=== PATIENT | male | born 1945 | race Caucasian/White ===

== ENCOUNTER 2016-09-08 14:38 | Emergency (ER) | payer OTHER ==
[2016-09-08 14:42] VITALS: BP 147/89; BMI 31.4
--- NOTE | 2016-09-08 15:58 | DR.FB ---
HPI - Time Seen Time seen: 15:25 - PCP Primary Care Physician: ADELINE - HPI Comment HPI Comment: FB, Q TIP IN LT NOSTRIL. - Complaint Chief Complaint:: PT. THINKS HE MAY HAVE A Q-TIP STUCK IN HIS LEFT NOSTRIL. Chief Complaint Doctors Comments: 1/2 OF Q TIP COTTON PLUS STICK STUCK IN LT NOSTRIL. - Reviewed Nurses Notes Review: Yes - Source History Provided: Patient - Mode of Arrival Mode of Arrival: Wheelchair - Location Location: Left, Nose - Timing Onset of Chief Complaint: 09/08/16 - Context Context: Accidental Foreign body: Other (Q TIP) Removal: Was attempted, Was Successful Last tetanus: UTD - Severity Pain Severity: Moderate Associated signs and symptoms: Moderate Ability to handle secretions: Normal - Associated signs and symptoms Associated sign and symptoms: Pain, Bleeding PMH - PMH Past Medical History: Yes Past Medical History: Anxiety, COPD, GERD Past Surgical History: Yes Surgical History: Ortho Surgery - Family History History of Family Medical Conditions: No - Social History Does patient currently use any type of tobacco product: No Have you used tobacco products in the last 12 months: No Type of Tobacco Use: None Does any household member use tobacco: No Alcohol Use: None Do you use any recreational Drugs:: No Lives With: Spouse Lives Where: Home - infectious screening In the last 2 months have you had wt loss of >10#?: NO Have you had fever, night sweats or hemotysis?: No Have you traveled outside the country in the last 6 months?: No Isolation: Standard ROS - Review of Systems Constitutional: No Symptoms Reported Eyes: No Symptoms Reported ENTM: Nose Pain (FB LT NOSE.). negative: Throat Pain Respiratoy: No Symptoms Reported Cardiovascular: No Symptoms Reported Gastrointestinal/Abdominal: No Symptoms Reported Genitourinary: No Symptoms Reported Neurological: No Symptoms Reported Musculoskeletal: Foot (POST OP SHOES RIGHT FOOT) Integumentary: No Symptoms Reported Hematologic/Lymphatic: No Symptoms Reported Endocrine: No Symptoms Reported All Other Systems: Reviewed and Negative PE - Vital Signs Vitals: Temperature 97.9 F Pulse Rate 102 Respiratory Rate 18 Blood Pressure [Left Arm] 128/72 Blood Pressure 147/89 O2 Sat by Pulse Oximetry 94 - General Limitations: No Limitations General Appearance: Alert - Eyes Eye exam: Normal Appearance - ENT ENT Exam: Normal External Ear Exam External Ear Exam: Normal External Inspection TM/Canal Exam: Bilateral Normal Nose Exam: Abrasion (LT NOSTRIL.), Other (FB NOTED IN LT NOSTRIL) Mouth Exam: Normal Inspection Throat Exam: Normal Inspection - Neck Neck Exam: Normal Inspection - Chest Chest Inspection: Symmetric Chest Wall Rise - Respiratory Respiratory Exam: Normal Lung Sounds Bilat Respiratory Exam: Bilateral Clear to Auscultation - Cardiovascular Cardiovascular Exam: Regular Rate, Normal Rhythm, Normal Heart Sounds - Abdominal Exam Abdominal Exam: Normal Bowel Sounds, Soft, Hyperactive Bowel Sounds - Rectal Rectal Exam: Deferred - Genitalia Genitalia: Deferred - Neurologic Neurological Exam: Alert, Oriented X3 - Psychiatric Psychiatric Exam: Normal Affect, Normal Mood - Skin Skin Exam: Normal Color MDM - Differential Diagnosis Differential Diagnosis: Abrasion, Foreign body (LT NOSTRIL.) Course - Treatment Treatment: SEE ORDERS. Q TIP REMOVE FROM LEFT NOSTRIL. HALF OF THE Q TIP WAS EMBEDDED IN THE NOSE. NO IMMEDIATE COMPLICATION NOTED. - Education/Counseling Education/Counseling: Patient, Education Educated On: Diagnosis, Needs for Follow Up - Diagnosis Discharge Problem: Nasal foreign body Qualifiers: Encounter type: initial encounter Qualified Code(s): T17.1XXA - Foreign body in nostril, initial encounter - Discharge Plan Condition: Stable - Follow ups/Referrals Follow ups/Referrals: Ra Ramirez [Primary Care Provider] - 3 days - Instructions Instructions: Nasal Foreign Body, [id number] Additional Instructions: RETURN TO ED IF WORSE.
== END 2016-09-08 16:04 | disposition home or self-care (01) ==
LOC: ER 14:47
DX: T17.1XXA Foreign body in nostril, initial encounter (principal)
CPT/HCPCS: 99282

== ENCOUNTER → 2016-10-09 | Emergency (ER) | payer OTHER | LOC: OUTPT REF 17:48 | DX: Z45.2 Encounter for adjustment and management of vascular access device (principal) | CPT/HCPCS: 96374; 99281 ==

== ENCOUNTER 2017-08-02 17:20 | Emergency (ER) | payer OTHER | END 2017-08-02 17:39 | disposition home or self-care (01) | LOC: OUTPT REF 17:20 | DX: Z45.2 Encounter for adjustment and management of vascular access device (principal) | CPT/HCPCS: 99281 ==

== ENCOUNTER 2017-08-24 11:53 | Observation (INO) ==
[2017-08-24] MEDS ORDERED: LEVSIN/MAALOX/LIDOC VISC PO PRN (12:53)
[2017-08-24] MEDS ORDERED: ZOFRAN INJ 4 MG VIAL IVP PRN (12:53)
[2017-08-24] MEDS: NS 1000 ML 1,000 ML IV SCH ×2 (13:15→22:07)
[2017-08-24 13:32] LABS: BASOPHILS % (AUTO) 0.3 % (0.2-1.0); EOSINOPHILS # (AUTO) 0.2 x10^3/uL (0.0-0.2); EOSINOPHILS % (AUTO) 2.1 % (0.9-2.9); HEMATOCRIT 46.4 % (42.0-54.0); HEMOGLOBIN 15.5 g/dL (13.5-18.0); LYMPHOCYTES # (AUTO) 0.9 X10^3/uL (1.3-2.9); LYMPHOCYTES % (AUTO) 9.2 % (21.0-51.0); MEAN CORPUSCULAR HEMOGLOBIN 28.8 pg (27.0-34.0); MEAN CORPUSCULAR HGB CONC 33.4 g/dL (33.0-35.0); MEAN CORPUSCULAR VOLUME 86.1 fL (80.0-100.0); MEAN PLATELET VOLUME 8.6 fL (7.4-11.0); MONOCYTES # (AUTO) 0.9 x10^3/uL (0.3-0.8); MONOCYTES % (AUTO) 9.8 % (0.0-13.0); NEUTROPHILS # (AUTO) 7.5 x10^3/uL (2.2-4.8); NEUTROPHILS % (AUTO) 78.6 % (42.0-75.0); PLATELET COUNT 224 X10^3/uL (150.0-450.0); RED BLOOD COUNT 5.39 X10^6/uL (4.7-6.0); RED CELL DISTRIBUTION WIDTH 15.4 % (11.6-16.5); WHITE BLOOD COUNT 9.6 X10^3/uL (3.6-10.0)
[2017-08-24 14:53] LABS: ALANINE AMINOTRANSFERASE 22 Units/L (12-78); ALBUMIN 3.4 g/dL (3.4-5.0); ALKALINE PHOSPHATASE 60 Units/L (46-116); ASPARTATE AMINO TRANSFERASE 16 Units/L (15-37); BLOOD UREA NITROGEN 10 mg/dL (7-18); CALCIUM 9.2 mg/dL (8.5-10.1); CARBON DIOXIDE 26.5 mmol/L (21-32); CHLORIDE 101 mmol/L (98-107); CREATININE 1.03 mg/dL (0.70-1.30); SODIUM 139 mmol/L (136-145); TOTAL PROTEIN 6.8 g/dL (6.4-8.2); eGFR NON BLACK RACES > 60 (>60)
[2017-08-24] MEDS ORDERED: HumuLIN R SUBCUT PRN (16:56)
[2017-08-24 19:03] LABS: BILIRUBIN,URINE NEGATIVE (NEGATIVE); BLOOD/HEMOGLOBIN,URINE 1+ (NEGATIVE); GLUCOSE, URINE NEGATIVE (NEGATIVE); KETONES,URINE 3+ (NEGATIVE); LEUKOCYTE ESTERASE ,URINE NEGATIVE (NEGATIVE); NITRITES,URINE NEGATIVE (NEGATIVE); PROTEIN,URINE NEGATIVE (NEGATIVE); UROBILINOGEN,URINE 1+ (NORMAL)
[2017-08-24 19:07] LABS: APPEARANCE,URINE CLEAR (CLEAR); COLOR,URINE YELLOW (YELLOW)
[2017-08-24 19:33] LABS: BACTERIA,URINE NEGATIVE /HPF (NEGATIVE); RBC,URINE 0-2 /HPF (NONE SEEN); SQUAMOUS EPITHELIAL CELL,UR FEW /HPF (NEGATIVE)
[2017-08-24] MEDS: SNACK - Diabetic Appropriate PO SCH ×2 (21:09→22:08)
[2017-08-24] MEDS ORDERED: NS 100 ML IV 100 ML IV ONE (22:38)
[2017-08-25] MEDS: NORCO 5/325 MG TAB PO PRN ×4 (01:09→18:11)
[2017-08-25 05:55] LABS: ALANINE AMINOTRANSFERASE 22 Units/L (12-78); ALBUMIN 3.1 g/dL (3.4-5.0); ALKALINE PHOSPHATASE 57 Units/L (46-116); ASPARTATE AMINO TRANSFERASE 17 Units/L (15-37); BLOOD UREA NITROGEN 10 mg/dL (7-18); CALCIUM 8.6 mg/dL (8.5-10.1); CARBON DIOXIDE 29.9 mmol/L (21-32); CHLORIDE 103 mmol/L (98-107); COR CA(FOR HYPOALB) 9.3 mg/dL (8.5-10.1); CREATININE 1.02 mg/dL (0.70-1.30); SODIUM 139 mmol/L (136-145); TOTAL PROTEIN 6.4 g/dL (6.4-8.2); eGFR NON BLACK RACES > 60 (>60)
[2017-08-25 06:11] LABS: BASOPHILS % (AUTO) 0.3 % (0.2-1.0); EOSINOPHILS # (AUTO) 0.2 x10^3/uL (0.0-0.2); EOSINOPHILS % (AUTO) 2.7 % (0.9-2.9); HEMATOCRIT 43.9 % (42.0-54.0); HEMOGLOBIN 14.5 g/dL (13.5-18.0); LYMPHOCYTES # (AUTO) 0.8 X10^3/uL (1.3-2.9); LYMPHOCYTES % (AUTO) 10.4 % (21.0-51.0); MEAN CORPUSCULAR HEMOGLOBIN 28.6 pg (27.0-34.0); MEAN CORPUSCULAR VOLUME 86.7 fL (80.0-100.0); MEAN PLATELET VOLUME 8.9 fL (7.4-11.0); MONOCYTES # (AUTO) 0.8 x10^3/uL (0.3-0.8); MONOCYTES % (AUTO) 10.7 % (0.0-13.0); NEUTROPHILS # (AUTO) 5.9 x10^3/uL (2.2-4.8); NEUTROPHILS % (AUTO) 75.9 % (42.0-75.0); PLATELET COUNT 219 X10^3/uL (150.0-450.0); RED BLOOD COUNT 5.06 X10^6/uL (4.7-6.0); RED CELL DISTRIBUTION WIDTH 15.1 % (11.6-16.5); WHITE BLOOD COUNT 7.8 X10^3/uL (3.6-10.0)
[2017-08-25] MEDS: NS 1000 ML 1,000 ML IV SCH ×4 (06:16→21:06)
--- NOTE | 2017-08-25 06:46 | CT ---
HISTORY: Abdominal pain, nausea Study: CT abdomen pelvis with contrast Comparison: 04/26/2011 Technique: Axial post-contrast images with coronal and sagittal reformats. Dose reduction procedures were used with mA/kv adjusted for body size. Resolution is decreased by respiratory motion Findings: The lung bases are clear. There is a large hiatal hernia present. The liver, spleen, adrenal glands, and pancreas are within normal limits. No opaque stones are visible within the gallbladder. Benign he patic cysts are present. The kidneys are unobstructed and without stones or masses. No ureteral calcu li are identified. Calcific atherosclerotic changes present in a nondilated abdominal aorta. No intra peritoneal or retroperitoneal lymphadenopathy is identified. There is a very large midline infraumbil ical ventral hernia containing multiple loops of dilated small bowel. Proximal to the hernia the smal l bowel is dilated. There is contrast passing from the small bowel into the colon, however, a mild pa rtial small bowel obstruction is likely present. This is likely due to incarcerated small bowel withi n the hernia. There are no definite findings to suggest strangulation at this time. Further surgical evaluation is recommended. Examination of the pelvis demonstrated no evidence for pelvic masses, pelv ic fluid, or pelvic lymphadenopathy. No bladder abnormality is identified. No lytic or blastic skelet al lesions are identified. IMPRESSION: Very large periumbilical ventral hernia containing multiple loops of dilated small bowel. There is pr oximal dilatation of the small bowel but with some passage of contrast into the colon. This suggests a partial small bowel obstruction likely due to incarceration of the bowel loops within the patient's ventral hernia. Findings suggestive of strangulation are not yet present. Expedient surgical evaluat ion is recommended. Large hiatal hernia Reported By:
[2017-08-25 09:18] VITALS: BMI 32.0
[2017-08-25] MEDS ORDERED: COLACE CAP 100 MG PO PRN (10:17)
[2017-08-25] MEDS ORDERED: ALBUTEROL SULFATE IN SCH (10:30)
[2017-08-25] MEDS ORDERED: PROVENTIL NEB TX 0.083% 2.5MG/ 3ML NEB PRN (10:43)
--- NOTE | 2017-08-25 11:23 | DR.UPDATE ---
H&P Update History and Physical Update: WAS SEEN IN THE OFFICE TODAY. A H&P WAS COMPLETED PRIOR TO ADMISSION. PATIENT HAS BEEN SEEN AND EXAMINED WITH NO CHANGES NOTED TO H&P. Changes noted: NO Yes with the following:
[2017-08-25] MEDS: FLONASE NASAL SPRAY ENOSTRIL SCH ×2 (11:26→21:06)
[2017-08-25] MEDS: FLOMAX PO SCH ×2 (11:26→21:06)
[2017-08-25] MEDS: XANAX PO SCH ×2 (11:27→21:06)
[2017-08-25] MEDS: PROTONIX TAB 40 MG PO SCH (11:27)
--- NOTE | 2017-08-25 11:44 | PCM.PROG ---
Progress Note - Progress Note for Day of Date: 08/25/17 - Subjective Subjective: Very large periumbilical ventral hernia containing multiple loops of dilated small bowel. There is proximal dilatation of the small bowel but with some passage of contrast into the colon. This suggests a partial small bowel obstruction likely due to incarceration of the bowel loops within the patient's ventral hernia. Findings suggestive of strangulation are not yet present. Expedient surgical evaluation is recommended. Large hiatal hernia - Past Medical Family Social History Past Med/Fam/Surg Hx: No changes since H&P Allergies: Allergies No Known Drug Allergies Allergy (Verified 08/22/17 22:49) - Review of Systems ROS: No change since H&P - Vital Signs and I&O's Vital Signs: Temperature 97.6 F Pulse Rate [Right Brachial] 87 Respiratory Rate 22 Blood Pressure [Right Arm] 123/70 Blood Pressure [Left Arm] 137/85 Blood Pressure 137/85 O2 Sat by Pulse Oximetry 94 Intake and Output: Intake & Output 08/22/17 08/23/17 08/24/17 08/25/17 11:59 11:59 11:59 11:59 Intake Total 2586 / 2586 Output Total 0 / 0 Balance 2586 / 2586 - Physical Exam Oriented: Normal Eyes: Normal Ear: Normal Nose: Normal Throat: Normal Respiratory: Generalized, Diminished Cardiovascular: Normal : Normal Auscultation: Bowel Sounds: Decreased Palpation: Normal Tenderness: Diffuse, Moderate, Other (LARGE PROTUBERANT HERNIA NOTED TO ABDOMEN ) Skin: Normal Musculoskeletal: Normal Psychiatric: Normal Mood Description: Calm Affect: Normal Speech Pattern: Clear, Appropriate - Laboratory and Diagnostics Result Diagrams: 08/25/17 04:55 08/25/17 04:55 Labs: 08/24/17 18:40 Urine,Clean Catch Urine Culture - Final Laboratory WBC 7.8 X10^3/uL (3.6-10.0) 08/25/17 04:55 RBC 5.06 X10^6/uL (4.7-6.0) 08/25/17 04:55 Hgb 14.5 g/dL (13.5-18.0) 08/25/17 04:55 Hct 43.9 % (42.0-54.0) 08/25/17 04:55 MCV 86.7 fL (80.0-100.0) 08/25/17 04:55 MCH 28.6 pg (27.0-34.0) 08/25/17 04:55 MCHC 33.0 g/dL (33.0-35.0) 08/25/17 04:55 RDW 15.1 % (11.6-16.5) 08/25/17 04:55 Plt Count 219 X10^3/uL (150.0-450.0) 08/25/17 04:55 MPV 8.9 fL (7.4-11.0) 08/25/17 04:55 Neut % (Auto) 75.9 % (42.0-75.0) H 08/25/17 04:55 Lymph % (Auto) 10.4 % (21.0-51.0) L 08/25/17 04:55 [place] % (Auto) 10.7 % (0.0-13.0) 08/25/17 04:55 Eos % (Auto) 2.7 % (0.9-2.9) 08/25/17 04:55 Baso % (Auto) 0.3 % (0.2-1.0) 08/25/17 04:55 Neut # (Auto) 5.9 x10^3/uL (2.2-4.8) H 08/25/17 04:55 Lymph # (Auto) 0.8 X10^3/uL (1.3-2.9) L 08/25/17 04:55 [place] # (Auto) 0.8 x10^3/uL (0.3-0.8) 08/25/17 04:55 Eos # (Auto) 0.2 x10^3/uL (0.0-0.2) 08/25/17 04:55 Baso # (Auto) 0.0 X10^3/uL (0.0-0.1) 08/25/17 04:55 Absolute Nucleated RBC 0.1 /100WBC 08/25/17 04:55 Sodium 139 mmol/L (136-145) 08/25/17 04:55 Corrected Sodium TNP 08/25/17 04:55 Potassium 3.8 mmol/L (3.5-5.1) 08/25/17 04:55 Chloride 103 mmol/L (98-107) 08/25/17 04:55 Carbon Dioxide 29.9 mmol/L (21-32) 08/25/17 04:55 BUN 10 mg/dL (7-18) 08/25/17 04:55 Creatinine 1.02 mg/dL (0.70-1.30) 08/25/17 04:55 Est GFR (MDRD) Af Amer > 60 (>60) 08/25/17 04:55 Est GFR (MDRD) Non-Af > 60 (>60) 08/25/17 04:55 Glucose 88 mg/dL (65-99) 08/25/17 04:55 POC Glucose (mg/dL) 97 mg/dL (65-99) 08/25/17 11:28 Calcium 8.6 mg/dL (8.5-10.1) 08/25/17 04:55 Corrected Calcium 9.3 mg/dL (8.5-10.1) 08/25/17 04:55 Total Bilirubin 0.80 mg/dL (0.2-1.0) 08/25/17 04:55 AST 17 Units/L (15-37) 08/25/17 04:55 ALT 22 Units/L (12-78) 08/25/17 04:55 Alkaline Phosphatase 57 Units/L (46-116) 08/25/17 04:55 Total Protein 6.4 g/dL (6.4-8.2) 08/25/17 04:55 Albumin 3.1 g/dL (3.4-5.0) L 08/25/17 04:55 Globulin 3.3 g/dL (2.5-4.5) 08/25/17 04:55 Albumin/Globulin Ratio 0.9 Ratio (1.1-2.1) L 08/25/17 04:55 Specimen Type Clean catch urine 08/24/17 18:40 Urine Color Yellow (YELLOW) 08/24/17 18:40 Urine Appearance Clear (CLEAR) 08/24/17 18:40 Urine pH 7.0 (5.0 - 8.0) 08/24/17 18:40 Ur Specific [place] 1.005 (1.000-1.030) 08/24/17 18:40 Urine Protein Negative (NEGATIVE) 08/24/17 18:40 Urine Glucose (UA) Negative (NEGATIVE) 08/24/17 18:40 Urine Ketones 3+ (NEGATIVE) 08/24/17 18:40 Urine Occult Blood 1+ (NEGATIVE) 08/24/17 18:40 Urine Nitrite Negative (NEGATIVE) 08/24/17 18:40 Urine Bilirubin Negative (NEGATIVE) 08/24/17 18:40 Urine Urobilinogen 1+ (NORMAL) 08/24/17 18:40 Ur Leukocyte Esterase Negative (NEGATIVE) 08/24/17 18:40 Urine RBC 0-2 /HPF (NONE SEEN) 08/24/17 18:40 Urine WBC 0-2 /HPF (NONE SEEN) 08/24/17 18:40 Ur Squamous Epith Cells Few /HPF (NEGATIVE) 08/24/17 18:40 Urine Bacteria Negative /HPF (NEGATIVE) 08/24/17 18:40 Ur Culture Indicated? Yes/culture set up 08/24/17 18:40 - Plan (1) Ventral hernia Status: Acute Qualifiers: Obstruction and gangrene presence: with obstruction but without gangrene Qualified Code(s): K43.6 - Other and unspecified ventral hernia with obstruction , without gangrene Plan: CONSULT
[2017-08-25] MEDS: SNACK - Diabetic Appropriate PO SCH (21:07)
[2017-08-26] MEDS: NORCO 5/325 MG TAB PO PRN ×3 (00:05→12:26)
[2017-08-26] MEDS: NS 1000 ML 1,000 ML IV SCH ×3 (00:09→08:15)
[2017-08-26 05:51] LABS: ALANINE AMINOTRANSFERASE 25 Units/L (12-78); ALKALINE PHOSPHATASE 53 Units/L (46-116); ASPARTATE AMINO TRANSFERASE 19 Units/L (15-37); BASOPHILS % (AUTO) 0.3 % (0.2-1.0); BLOOD UREA NITROGEN 11 mg/dL (7-18); CALCIUM 8.3 mg/dL (8.5-10.1); CARBON DIOXIDE 23.8 mmol/L (21-32); CHLORIDE 105 mmol/L (98-107); COR CA(FOR HYPOALB) 9.1 mg/dL (8.5-10.1); CREATININE 0.85 mg/dL (0.70-1.30); EOSINOPHILS # (AUTO) 0.4 x10^3/uL (0.0-0.2); EOSINOPHILS % (AUTO) 5.8 % (0.9-2.9); HEMATOCRIT 42.7 % (42.0-54.0); HEMOGLOBIN 14.3 g/dL (13.5-18.0); LYMPHOCYTES # (AUTO) 0.9 X10^3/uL (1.3-2.9); LYMPHOCYTES % (AUTO) 11.9 % (21.0-51.0); MEAN CORPUSCULAR HGB CONC 33.4 g/dL (33.0-35.0); MEAN CORPUSCULAR VOLUME 86.8 fL (80.0-100.0); MEAN PLATELET VOLUME 8.9 fL (7.4-11.0); MONOCYTES # (AUTO) 0.7 x10^3/uL (0.3-0.8); MONOCYTES % (AUTO) 10.3 % (0.0-13.0); NEUTROPHILS # (AUTO) 5.1 x10^3/uL (2.2-4.8); NEUTROPHILS % (AUTO) 71.7 % (42.0-75.0); PLATELET COUNT 193 X10^3/uL (150.0-450.0); RED BLOOD COUNT 4.92 X10^6/uL (4.7-6.0); SODIUM 140 mmol/L (136-145); TOTAL PROTEIN 6.1 g/dL (6.4-8.2); WHITE BLOOD COUNT 7.2 X10^3/uL (3.6-10.0); eGFR NON BLACK RACES > 60 (>60)
--- NOTE | 2017-08-26 06:46 | RAD ---
HISTORY: Nausea, abdominal pain, shortness of breath Study: Chest AP portable Comparison: Chest CT 03/29/2016 Findings: There is a right sided port present with its tip in the superior vena cava. The heart is enlarged. No congestive heart failure is noted. The lungs are free of acute alveolar infiltrates. There is subseg mental atelectasis in the right lung base. The bony thorax is unremarkable. IMPRESSION: Mild cardiomegaly without congestive heart failure Subsegmental atelectasis right lung base Reported By:
--- NOTE | 2017-08-26 07:59 | DR.PROGNOT ---
Hospital Progress Notes - Progress Note for Day of: Progress Note Date: 08/26/17 - Chief Complaint Chief Complaint: denies abdominal pain , no nausea or vomiting . passing flatus . afebrile . - Past Medical Family Social History Past Med/Fam/Surg Hx: No changes since H&P Allergies: Allergies No Known Drug Allergies Allergy (Verified 08/22/17 22:49) - Review Of Systems ROS: No change since H&P - Vital Signs Vital Signs: Temperature 97.9 F Pulse Rate [Right Brachial] 85 Pulse Rate 83 Respiratory Rate 20 Blood Pressure [Right Arm] 124/57 Blood Pressure [Left Arm] 137/85 Blood Pressure 137/85 O2 Sat by Pulse Oximetry 94 - Physical Exam Oriented: Normal Eyes: Normal Ear: Normal Nose: Normal Throat: Normal Respiratory: Generalized, Diminished Cardiovascular: Normal : Normal GI:Auscultation: Normal GI:Palpation: Other (large incarcerated umbilical hernia , non tender ) GI: Tenderness: Other (soft abdomen ) Skin: Normal Musculoskeletal: Normal Psychiatric: Normal Mood Description: Calm Affect: Normal Speech Pattern: Clear, Appropriate - Laboratory and Diagnostics Result Diagrams: 08/26/17 04:55 08/26/17 04:55 Labs: 08/25/17 14:42 Foot - Right Gram Stain - Final 08/24/17 18:40 Urine,Clean Catch Urine Culture - Final Laboratory WBC 7.2 X10^3/uL (3.6-10.0) 08/26/17 04:55 RBC 4.92 X10^6/uL (4.7-6.0) 08/26/17 04:55 Hgb 14.3 g/dL (13.5-18.0) 08/26/17 04:55 Hct 42.7 % (42.0-54.0) 08/26/17 04:55 MCV 86.8 fL (80.0-100.0) 08/26/17 04:55 MCH 29.0 pg (27.0-34.0) 08/26/17 04:55 MCHC 33.4 g/dL (33.0-35.0) 08/26/17 04:55 RDW 15.0 % (11.6-16.5) 08/26/17 04:55 Plt Count 193 X10^3/uL (150.0-450.0) 08/26/17 04:55 MPV 8.9 fL (7.4-11.0) 08/26/17 04:55 Neut % (Auto) 71.7 % (42.0-75.0) 08/26/17 04:55 Lymph % (Auto) 11.9 % (21.0-51.0) L 08/26/17 04:55 [place] % (Auto) 10.3 % (0.0-13.0) 08/26/17 04:55 Eos % (Auto) 5.8 % (0.9-2.9) H 08/26/17 04:55 Baso % (Auto) 0.3 % (0.2-1.0) 08/26/17 04:55 Neut # (Auto) 5.1 x10^3/uL (2.2-4.8) H 08/26/17 04:55 Lymph # (Auto) 0.9 X10^3/uL (1.3-2.9) L 08/26/17 04:55 [place] # (Auto) 0.7 x10^3/uL (0.3-0.8) 08/26/17 04:55 Eos # (Auto) 0.4 x10^3/uL (0.0-0.2) H 08/26/17 04:55 Baso # (Auto) 0.0 X10^3/uL (0.0-0.1) 08/26/17 04:55 Absolute Nucleated RBC 0.0 /100WBC 08/26/17 04:55 Sodium 140 mmol/L (136-145) 08/26/17 04:55 Corrected Sodium TNP 08/26/17 04:55 Potassium 3.6 mmol/L (3.5-5.1) 08/26/17 04:55 Chloride 105 mmol/L (98-107) 08/26/17 04:55 Carbon Dioxide 23.8 mmol/L (21-32) 08/26/17 04:55 BUN 11 mg/dL (7-18) 08/26/17 04:55 Creatinine 0.85 mg/dL (0.70-1.30) 08/26/17 04:55 Est GFR (MDRD) Af Amer > 60 (>60) 08/26/17 04:55 Est GFR (MDRD) Non-Af > 60 (>60) 08/26/17 04:55 Glucose 71 mg/dL (65-99) 08/26/17 04:55 POC Glucose (mg/dL) 81 mg/dL (65-99) 08/26/17 05:31 Calcium 8.3 mg/dL (8.5-10.1) L 08/26/17 04:55 Corrected Calcium 9.1 mg/dL (8.5-10.1) 08/26/17 04:55 Total Bilirubin 0.70 mg/dL (0.2-1.0) 08/26/17 04:55 AST 19 Units/L (15-37) 08/26/17 04:55 ALT 25 Units/L (12-78) 08/26/17 04:55 Alkaline Phosphatase 53 Units/L (46-116) 08/26/17 04:55 Total Protein 6.1 g/dL (6.4-8.2) L 08/26/17 04:55 Albumin 3.0 g/dL (3.4-5.0) L 08/26/17 04:55 Globulin 3.1 g/dL (2.5-4.5) 08/26/17 04:55 Albumin/Globulin Ratio 1.0 Ratio (1.1-2.1) L 08/26/17 04:55 Specimen Type Clean catch urine 08/24/17 18:40 Urine Color Yellow (YELLOW) 08/24/17 18:40 Urine Appearance Clear (CLEAR) 08/24/17 18:40 Urine pH 7.0 (5.0 - 8.0) 08/24/17 18:40 Ur Specific [place] 1.005 (1.000-1.030) 08/24/17 18:40 Urine Protein Negative (NEGATIVE) 08/24/17 18:40 Urine Glucose (UA) Negative (NEGATIVE) 08/24/17 18:40 Urine Ketones 3+ (NEGATIVE) 08/24/17 18:40 Urine Occult Blood 1+ (NEGATIVE) 08/24/17 18:40 Urine Nitrite Negative (NEGATIVE) 08/24/17 18:40 Urine Bilirubin Negative (NEGATIVE) 08/24/17 18:40 Urine Urobilinogen 1+ (NORMAL) 08/24/17 18:40 Ur Leukocyte Esterase Negative (NEGATIVE) 06/18/18 18:40 Urine RBC 0-2 /HPF (NONE SEEN) 08/24/17 18:40 Urine WBC 0-2 /HPF (NONE SEEN) 08/24/17 18:40 Ur Squamous Epith Cells Few /HPF (NEGATIVE) 08/24/17 18:40 Urine Bacteria Negative /HPF (NEGATIVE) 08/24/17 18:40 Ur Culture Indicated? Yes/culture set up 08/24/17 18:40 - Assessment and Plan 1: large incarcerated umbilical hernia . loss of domain ,. pt is refusing surgery now . will follow as an out pt and maybe do it as an elective procedure with bowel prep .
[2017-08-26] MEDS: XANAX PO SCH (08:16)
[2017-08-26] MEDS: FLOMAX PO SCH (08:16)
[2017-08-26] MEDS: FLONASE NASAL SPRAY ENOSTRIL SCH (08:16)
[2017-08-26] MEDS: PROTONIX TAB 40 MG PO SCH (08:16)
--- NOTE | 2017-08-26 10:06 | RAD ---
HISTORY: Small bowel obstruction Study: Flat and upright abdomen, PA chest Comparison: CT abdomen pelvis 08/24/2017 Findings: Examination the chest demonstrated a port to be present on the right. The heart is within normal limi ts in size. The alexia are normal. The lung delcid are clear with the exception of subsegmental atelect asis in the left lung base. Examination of the abdomen demonstrated contrast throughout the colon fro m recent CT. This precludes complete small bowel obstruction. A partial small bowel obstruction could still be present. No pneumoperitoneum is identified. No abnormal masses or abnormal calcifications a re identified. IMPRESSION: Residual contrast within the colon from the prior abdominal CT which precludes complete small bowel o bstruction. A partial small bowel obstruction may still be present Subsegmental atelectasis right lung base Reported By:
[2017-08-26 12:09] VITALS: BP 135/66
--- NOTE | 2017-09-18 02:15 | DR.CARTERD ---
- Discharge Summary for: Discharge Summary for Date of:: 08/26/17 - Admission Date Date of Admission: 08/24/17 - Admission Diagnoses Admission Diagnosis: (1) Abdominal Pain (2) Ventral hernia (3) Nausea - Discharge Date Discharge Date: 08/26/17 - Discharge Diagnoses Discharge Diagnosis: (1) Abdominal Pain (2) Ventral hernia (3) Nausea - Hospital Course Hospital Course: Mr. Coe presented to the hospital as a direct admission after being seen in the office with reports of constipation. Patient reported symptoms started several weeks prior and had worsened. Associated symptoms included bloating and nausea. Patient noted with a protuberant large hernia with tenderness on palpation. Patient admitted to the hospital as observation for further evaluation and treatment. An abdomen and pelvis CT obtained on arrival revealed a very large periumbilical ventral hernia containing multiple loops of dilated small bowel, proximal dilatation of the small bowel but with some passage of contrast into the colon which suggests a partial small bowel obstruction likely due to incarceration of the bowel loops within the patient's ventral hernia and findings suggestive of strangulation are not yet present. Dr. Leavitt, General Surgeon, consulted. Medical History: Constipation, Hernia, Kidney Stones, Arthritis. Abnormal Labs: Glucose 106, A/G Ratio 1.0. Urinalysis : Ketones 3+, Occult Blood 1+, Urobilinogen 1+, RBC 0-2, WBC 0-2, Culture Pending. Abdomen/Pelvis CT: Very large periumbilical ventral hernia containing multiple loops of dilated small bowel. There is proximal dilatation of the small bowel but with some passage of contrast into the colon. This suggests a partial small bowel obstruction likely due to incarceration of the bowel loops within the patient's ventral hernia. Findings suggestive of strangulation are not yet present. Expedient surgical evaluation is recommended. Large hiatal hernia. Day two, patient continued with abdominal pain and nausea. Patient reported abdominal pain was improving with treatment. We continued to monitor. Day three, Dr. Leavitt consulted and offered patient surgery. Patient refused surgical intervention. Patient denied abdominal pain or nausea. Patient was passing flatus and had three bowel movements since admission. Patient reported he felt better and therefore, requested to wait on surgery at this time. We agreed with plans. Vital signs stable. Labs wnl. 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 Organism is sensitive to Bactrim, which patient will be placed on upon discharge. We planned for discharge with patient to follow up with Dr. Leavitt. Instructions for medications and follow up were discussed with patient and family, both voiced understanding. Patient discharged home in stable condition with family. Labs: Microbiology 08/25/17 14:42 Foot - Right Gram Stain - Final 08/25/17 14:42 Foot - Right Wound Culture - Final Burkholderia Cepacia - Discharge Medications Discharge Medications: Home Medication List albuterol sulfate 2 puff INHALATION BID 08/24/17 [History] alprazolam 0.25 mg PO BID 08/24/17 [History] docusate sodium 2 tab PO DAILY PRN 08/24/17 [History] fluticasone 1 spray INTRANASAL BID 08/24/17 [History] oxycodone-acetaminophen 7.5 - 325 ba unit PO Q4H PRN 08/24/17 [History] pantoprazole 40 mg PO DAILY 08/24/17 [History] tamsulosin 0.4 mg PO BID 08/24/17 [History] ondansetron [Zofran ODT] 8 mg PO TID PRN #30 tab 08/26/17 [Rx] Prescriptions: ondansetron [Zofran ODT] Ra Ramirez - Discharge Disposition Discharge Disposition: Patient is to follow up in our office in one week and with Dr. Leavitt in one week.
== END 2017-08-26 12:45 | disposition home or self-care (01) ==
LOC: MED/SURG
PROVIDERS: ADMIT Internal Medicine; ATTEND Internal Medicine
DX: I10 Essential (primary) hypertension; E11.65 Type 2 diabetes mellitus with hyperglycemia; M14.671 Charcot's joint, right ankle and foot; E78.2 Mixed hyperlipidemia; B96.5 Pseudomonas (aeruginosa) (mallei) (pseudomallei) as the cause of diseases classified elsewhere; G47.33 Obstructive sleep apnea (adult) (pediatric); R26.81 Unsteadiness on feet; K43.6 Other and unspecified ventral hernia with obstruction, without gangrene; R82.99 Other abnormal findings in urine; M14.672 Charcot's joint, left ankle and foot
CPT/HCPCS: 36415; 71010; 71045; 74022; 74177; 80053; 81001; 85025; 87070; 87075; 87077; 87086; 87186; 87205; 93005; 94640; 94760; 97162; A4216; A4222; G0378; J7030; J7050; J7613

== ENCOUNTER 2017-11-23 13:49 | Inpatient (IN) ==
[2017-11-23 13:57] VITALS: BMI 32.7
[2017-11-23 14:36] LABS: BASOPHILS # (AUTO) 0.1 X10^3/uL (0.0-0.1); BASOPHILS % (AUTO) 0.6 % (0.2-1.0); EOSINOPHILS # (AUTO) 0.4 x10^3/uL (0.0-0.2); EOSINOPHILS % (AUTO) 3.8 % (0.9-2.9); HEMATOCRIT 33.6 % (42.0-54.0); HEMOGLOBIN 10.8 g/dL (13.5-18.0); LYMPHOCYTES % (AUTO) 8.5 % (21.0-51.0); MEAN CORPUSCULAR HEMOGLOBIN 26.9 pg (27.0-34.0); MEAN CORPUSCULAR HGB CONC 32.1 g/dL (33.0-35.0); MEAN CORPUSCULAR VOLUME 83.8 fL (80.0-100.0); MONOCYTES # (AUTO) 1.3 x10^3/uL (0.3-0.8); MONOCYTES % (AUTO) 11.5 % (0.0-13.0); NEUTROPHILS # (AUTO) 8.8 x10^3/uL (2.2-4.8); NEUTROPHILS % (AUTO) 75.6 % (42.0-75.0); PLATELET COUNT 391 X10^3/uL (150.0-450.0); RED CELL DISTRIBUTION WIDTH 15.2 % (11.6-16.5); WHITE BLOOD COUNT 11.6 X10^3/uL (3.6-10.0)
[2017-11-23 14:44] LABS: ALANINE AMINOTRANSFERASE 42 Units/L (12-78); ALBUMIN 2.2 g/dL (3.4-5.0); ALKALINE PHOSPHATASE 92 Units/L (46-116); ASPARTATE AMINO TRANSFERASE 25 Units/L (15-37); BLOOD UREA NITROGEN 11 mg/dL (7-18); CALCIUM 8.6 mg/dL (8.5-10.1); CARBON DIOXIDE 31.2 mmol/L (21-32); CHLORIDE 99 mmol/L (98-107); COR NA(FOR HYPERGLY) 137 mmol/L (136-145); CREATININE 0.89 mg/dL (0.70-1.30); SODIUM 137 mmol/L (136-145); TOTAL PROTEIN 6.6 g/dL (6.4-8.2); eGFR NON BLACK RACES > 60 (>60)
[2017-11-23 14:47] LABS: LACTIC ACID 0.8 mmol/L (0.4-2.0)
[2017-11-23] MEDS ORDERED: ALBUTEROL SULFATE IN SCH (17:41)
[2017-11-23] MEDS ORDERED: PATIENT'S HOME MEDICATION (Oxycodone-Acetaminophen [Oxycodone-Acetaminophen] 0 MG) PO PRN (17:41)
[2017-11-23] MEDS ORDERED: VANCOMYCIN HCL 1 GM VIAL ONE (17:52)
[2017-11-23] MEDS ORDERED: VANCOMYCIN HCL 500 MG VIAL ONE (17:52)
[2017-11-23] MEDS ORDERED: NS 1000 ML 1,000 ML ONE (17:52)
[2017-11-23] MEDS ORDERED: D5W 250 ML IV 250 ML IV ONE (17:54)
[2017-11-23] MEDS: COLACE CAP 100 MG PO SCH ×2 (18:22→20:38)
[2017-11-23] MEDS: VANCOMYCIN HCL 500 MG VIAL 250 MG, VANCOMYCIN HCL 1 GM VIAL 1 G in D5W 250 ML IV 250 ML IV SCH (18:22)
[2017-11-23] MEDS: NS 1000 ML 1,000 ML IV SCH (18:22)
[2017-11-23] MEDS: PERCOCET TAB 5/325 MG PO PRN ×2 (18:40→23:08)
[2017-11-23] MEDS: PROVENTIL NEB TX 0.083% 2.5MG/ 3ML NEB SCH (20:37)
[2017-11-23] MEDS: XANAX PO PRN (20:38)
[2017-11-23] MEDS: FLOMAX PO SCH (20:38)
[2017-11-23] MEDS ORDERED: NS 100 ML IV + SPIKE MINIBAG* 100 ML IV ONE (21:46)
[2017-11-23] MEDS: FLONASE NASAL SPRAY ENOSTRIL SCH (22:01)
[2017-11-23] MEDS: ZOSYN VIAL 4.5 GRAMS IV SCH (22:02)
[2017-11-24] MEDS: PERCOCET TAB 5/325 MG PO PRN ×5 (03:35→21:05)
[2017-11-24 05:09] LABS: BASOPHILS % (AUTO) 0.4 % (0.2-1.0); EOSINOPHILS # (AUTO) 0.7 x10^3/uL (0.0-0.2); EOSINOPHILS % (AUTO) 8.2 % (0.9-2.9); HEMATOCRIT 29.8 % (42.0-54.0); HEMOGLOBIN 10.1 g/dL (13.5-18.0); LYMPHOCYTES # (AUTO) 0.9 X10^3/uL (1.3-2.9); LYMPHOCYTES % (AUTO) 9.9 % (21.0-51.0); MEAN CORPUSCULAR HEMOGLOBIN 27.9 pg (27.0-34.0); MEAN CORPUSCULAR HGB CONC 33.9 g/dL (33.0-35.0); MEAN CORPUSCULAR VOLUME 82.5 fL (80.0-100.0); MEAN PLATELET VOLUME 7.8 fL (7.4-11.0); MONOCYTES % (AUTO) 10.9 % (0.0-13.0); NEUTROPHILS # (AUTO) 6.4 x10^3/uL (2.2-4.8); NEUTROPHILS % (AUTO) 70.6 % (42.0-75.0); PLATELET COUNT 349 X10^3/uL (150.0-450.0); RED BLOOD COUNT 3.62 X10^6/uL (4.7-6.0); RED CELL DISTRIBUTION WIDTH 14.9 % (11.6-16.5); WHITE BLOOD COUNT 9.1 X10^3/uL (3.6-10.0)
--- NOTE | 2017-11-24 05:14 | DR.EXTPAIN ---
HPI Time seen Time seen: 15:45 PCP Primary Care Physician: ADELINE BARNES Complaint/Symptoms Chief Complaint:: PT. C/O BILATERAL LOWER LEG AND FEET PAIN AND SWELLING. PT. STATES HE HAS PROBLEMS SWELLING BUT NOT THIS BAD. PT. HAS WOUND TO RIGHT FOOT WHICH HAS BEEN DRAINING THE PAST COUPLE OF DAYS. PT. HAS ALSO HAD A FEVER AND SOME CONFUSION. Source History Provided: Patient and Family Member Mode of arrival Mode of Arrival: Wheelchair Timing Onset of Chief Complaint: 11/18/17 PMH PMH Past Medical History: Yes Past Medical History: Anxiety, COPD and GERD Past Medical History Comment: HERNIA Past Surgical History: Yes Surgical History: Ortho Surgery and Other Past Surgical History Comment: PORT A CATH Family History History of Family Medical Conditions: Yes Family Medical History: Diabetes Mellitus and Cancer Social History Does patient currently use any type of tobacco product: No Have you used tobacco products in the last 12 months: No Type of Tobacco Use: None Does any household member use tobacco: No Alcohol Use: None Do you use any recreational Drugs:: No Lives With: Family Lives Where: Home infectious screening In the last 2 months have you had wt loss of >10#?: NO Have you had fever, night sweats or hemotysis?: No Have you traveled outside the country in the last 6 months?: No Isolation: Standard PE Vital Signs Vitals: Temperature 97.8 F Pulse Rate [Left Brachial] 81 Pulse Rate 96 Respiratory Rate 16 Blood Pressure [Right Arm] 124/57 Blood Pressure [Left Arm] 112/71 Blood Pressure 136/65 O2 Sat by Pulse Oximetry 93 General Limitations: No Limitations; negative Altered Mental Status General Appearance: Alert and In No Apparent Distress; negative In Distress Eyes Eye exam: Normal Appearance, PERRL and EOMI ENT ENT Exam: Normal Exam and Normal Oropharynx Neck Neck Exam: Normal Inspection and Full ROM Chest Chest Inspection: Normal Inspection and Symmetric Chest Wall Rise Respiratory Respiratory Exam: Normal Lung Sounds Bilat Respiratory Exam: Bilateral: Clear to Auscultation Cardiovascular Cardiovascular Exam: Regular Rate and Normal Rhythm Abdominal Exam Abdominal Exam: Normal Inspection, Normal Bowel Sounds and Soft Abdominal Tenderness: negative RUQ, RLQ and LUQ Extremities Extremities Exam: Normal Inspection (lower extremity lymphedema), Full ROM, Edema and Joint Swelling Upper Extremities Shoulder Exam: Normal Inspection and Full ROM Arm Exam: Normal Inspection Elbow Exam: Normal Inspection and Full ROM Hand Exam: Normal Inspection and Full ROM Neurosensory Exam: Normal Exam Lower Extremities Hip/Pelvis Exam: Normal Inspection Upper Leg Exam: Normal Inspection Knee Exam: Normal Inspection Lower Leg Exam: Other (generalized lymph edema) Ankle Exam: Swelling Foot/Toe Exam: Deformity and Other (pressure ulcer plantar surface laterally of the right foot 4cm diameter) Neurovascular/Tendon Exam: Pulse Deficit Gait Exam: Not Tested/Not Observed Back Back Exam: Normal Inspection Neurological Neurological Exam: Alert, Oriented X3 and CN II-XII Intact Psychiatric Psychiatric Exam: Normal Affect and Normal Mood Skin Skin Exam: Warm, Dry and Other (pressure ulcer anterior lateral right foot) Type of Lesion: Rash Distribution: Involves Palms/Soles (right foot anterior lateral) COURSE Consultation Called: 16:00 Consultation Comments: Patient discussed with Dr Enriquez office and admitted for further treatment ROR Labs Reviewed Result Diagrams: 11/23/17 14:10 11/23/17 14:10 Laboratory: 11/23/17 14:10 Foot - Right Gram Stain - Final WBC 11.6 X10^3/uL (3.6-10.0) H 11/23/17 14:10 RBC 4.00 X10^6/uL (4.7-6.0) L 11/23/17 14:10 Hgb 10.8 g/dL (13.5-18.0) L 11/23/17 14:10 Hct 33.6 % (42.0-54.0) L 11/23/17 14:10 MCV 83.8 fL (80.0-100.0) 11/23/17 14:10 MCH 26.9 pg (27.0-34.0) L 11/23/17 14:10 MCHC 32.1 g/dL (33.0-35.0) L 11/23/17 14:10 RDW 15.2 % (11.6-16.5) 11/23/17 14:10 Plt Count 391 X10^3/uL (150.0-450.0) 11/23/17 14:10 MPV 8.0 fL (7.4-11.0) 11/23/17 14:10 Neut % (Auto) 75.6 % (42.0-75.0) H 11/23/17 14:10 Lymph % (Auto) 8.5 % (21.0-51.0) L 11/23/17 14:10 [place] % (Auto) 11.5 % (0.0-13.0) 11/23/17 14:10 Eos % (Auto) 3.8 % (0.9-2.9) H 11/23/17 14:10 Baso % (Auto) 0.6 % (0.2-1.0) 11/23/17 14:10 Neut # (Auto) 8.8 x10^3/uL (2.2-4.8) H 11/23/17 14:10 Lymph # (Auto) 1.0 X10^3/uL (1.3-2.9) L 11/23/17 14:10 [place] # (Auto) 1.3 x10^3/uL (0.3-0.8) H 11/23/17 14:10 Eos # (Auto) 0.4 x10^3/uL (0.0-0.2) H 11/23/17 14:10 Baso # (Auto) 0.1 X10^3/uL (0.0-0.1) 11/23/17 14:10 Absolute Nucleated RBC 0.0 /100WBC 11/23/17 14:10 Sodium 137 mmol/L (136-145) 11/23/17 14:10 Corrected Sodium 137 mmol/L (136-145) 11/23/17 14:10 Potassium 3.8 mmol/L (3.5-5.1) 11/23/17 14:10 Chloride 99 mmol/L (98-107) 11/23/17 14:10 Carbon Dioxide 31.2 mmol/L (21-32) 11/23/17 14:10 BUN 11 mg/dL (7-18) 11/23/17 14:10 Creatinine 0.89 mg/dL (0.70-1.30) 11/23/17 14:10 Est GFR (MDRD) Af Amer > 60 (>60) 11/23/17 14:10 Est GFR (MDRD) Non-Af > 60 (>60) 11/23/17 14:10 Glucose 118 mg/dL (65-99) H 11/23/17 14:10 Lactic Acid 0.8 mmol/L (0.4-2.0) 11/23/17 14:10 Calcium 8.6 mg/dL (8.5-10.1) 11/23/17 14:10 Corrected Calcium 10.0 mg/dL (8.5-10.1) 11/23/17 14:10 Total Bilirubin 0.60 mg/dL (0.2-1.0) 11/23/17 14:10 AST 25 Units/L (15-37) 11/23/17 14:10 ALT 42 Units/L (12-78) 11/23/17 14:10 Alkaline Phosphatase 92 Units/L (46-116) 11/23/17 14:10 C-Reactive Protein 283.30 mg/L (0-3.0) H 11/23/17 14:10 Total Protein 6.6 g/dL (6.4-8.2) 11/23/17 14:10 Albumin 2.2 g/dL (3.4-5.0) L 11/23/17 14:10 Globulin 4.4 g/dL (2.5-4.5) 11/23/17 14:10 Albumin/Globulin Ratio 0.5 Ratio (1.1-2.1) L 11/23/17 14:10 Diagnosis Discharge Problem: Cellulitis ADDITIONAL NOTES Additional Notes Additional Notes: Patient admitted for management of cellulitis and pressure ulcer of plantar surface of right foot
[2017-11-24 05:25] LABS: ALANINE AMINOTRANSFERASE 36 Units/L (12-78); ALBUMIN 1.7 g/dL (3.4-5.0); ALKALINE PHOSPHATASE 75 Units/L (46-116); ASPARTATE AMINO TRANSFERASE 23 Units/L (15-37); BLOOD UREA NITROGEN 9 mg/dL (7-18); CALCIUM 8.1 mg/dL (8.5-10.1); CARBON DIOXIDE 29.2 mmol/L (21-32); CHLORIDE 102 mmol/L (98-107); COR CA(FOR HYPOALB) 9.9 mg/dL (8.5-10.1); COR NA(FOR HYPERGLY) 138 mmol/L (136-145); SODIUM 137 mmol/L (136-145); TOTAL PROTEIN 5.6 g/dL (6.4-8.2); eGFR NON BLACK RACES > 60 (>60)
[2017-11-24] MEDS ORDERED: NS 100 ML IV + SPIKE MINIBAG* 100 ML IV ONE ×3 (05:32→20:56)
[2017-11-24] MEDS ORDERED: D5W 250 ML IV 250 ML IV ONE (05:33)
[2017-11-24] MEDS ORDERED: VANCOMYCIN HCL 500 MG VIAL ONE ×2 (05:33→16:56)
[2017-11-24] MEDS ORDERED: VANCOMYCIN HCL 1 GM VIAL ONE ×2 (05:33→16:57)
[2017-11-24] MEDS: ZOSYN VIAL 4.5 GRAMS IV SCH ×3 (06:05→22:00)
[2017-11-24] MEDS: VANCOMYCIN HCL 500 MG VIAL 250 MG, VANCOMYCIN HCL 1 GM VIAL 1 G in D5W 250 ML IV 250 ML IV SCH ×2 (06:05→17:02)
[2017-11-24] MEDS ORDERED: POTASSIUM CHLORIDE LIQ 20 MEQ UDC PO PRN (06:48)
[2017-11-24] MEDS ORDERED: K-RIDER 10 MEQ/NS 100 ML 10 MEQ/100 ML BAG IV PRN (06:48)
[2017-11-24] MEDS ORDERED: POTASSIUM CHL 60 MEQ/NS 0.45% 500 ML IV PRN (06:48)
[2017-11-24] MEDS ORDERED: POTASSIUM CHL 40 MEQ/NS 0.45% 500 ML IV PRN (06:48)
[2017-11-24] MEDS ORDERED: K-LYTE EFFERVESCENT PO PRN (06:48)
[2017-11-24] MEDS: NS 1000 ML 1,000 ML IV SCH ×3 (07:15→21:04)
[2017-11-24] MEDS: COLACE CAP 100 MG PO SCH ×2 (08:23→21:04)
[2017-11-24] MEDS: FLONASE NASAL SPRAY ENOSTRIL SCH ×2 (08:24→21:04)
[2017-11-24] MEDS: FLOMAX PO SCH ×2 (08:24→21:04)
[2017-11-24] MEDS: PROTONIX TAB 40 MG PO SCH (08:24)
[2017-11-24] MEDS: PROVENTIL NEB TX 0.083% 2.5MG/ 3ML NEB SCH ×2 (08:55→20:46)
--- NOTE | 2017-11-24 10:11 | RAD ---
History: Right foot wound Study: AP and lateral right foot Comparison: None Findings: There is a transverse fracture at the base of the 5th metatarsal of uncertain age. There is diffuse soft tissue swelling with subcutaneous gas lateral on the plantar surface adjacent to the 5t h metatarsal. There is no definite bone erosion to suggest osteomyelitis. There are degenerative taylor ges of the 2nd metatarsal phalangeal joint in the 1st metatarsal phalangeal joint. There is severe na rrowing of the tarsal joint spaces partially visualized are destructive changes about the ankle joint with medial subluxation. Impression: 1. Large soft tissue wound with subcutaneous large amounts of gas on the plantar lateral aspect of th e foot. No definite associated adjacent osteomyelitis 2. Fracture of the base of the 5th metatarsal 3. 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
--- NOTE | 2017-11-24 11:17 | DR.H&P ---
H&P - History & Physical for Day of: H&P Date: 11/23/17 - Chief Complaint Chief Complaint: FOOT PAIN AND SWELLING, RIGHT FOOT WOUND - History of Present Illness History of Present Illness: IS A 72 YEAR OLD PATIENT OF OURS WHO PRESENTED TO THE EMERGENCY ROOM WITH COMPLAINTS OF BILATERAL LOWER LEG AND FEET PAIN AND SWELLING. SPOUSE STATES THAT PATIENT HAS HAD FEVER AND CONFUSION FOR THE PAST TWO DAYS. THERE IS A WOUND TO THE RIGHT FOOT THAT IS NOTED WITH PURULENT DRAINAGE. SPOUSE REPORTS THAT WOUND HAS BEEN PRESENT SINCE MARCH AND HAS PROGRESSIVELY GOTTEN WORSE. HE HAS A HISTORY OF CHARCOT FOOT. ON ARRIVAL, VITALS WERE 98.2-90-20-100%-122/65. LABS WERE OBTAINED. ABNORMAL LAB VALUES INCLUDE THE FOLLOWING: WBC 11.6, RBC 4.00, HGB 10.8, HCT 33.6, GLUCOSE 118, ALBUMIN 2.2, CRP 283.30. PATIENT WAS ADMITTED TO THE HOSPITAL FOR FURTHER EVAUATION AND TREATMENT. HE WAS STARTED ON ZOSYN 4.5GM IV TID AND VANCOMYCIN 1GM IV Q12H WELL NORMAL SALINE AT 80ML/HR. WE WILL PERFORM DRESSING CHANGES DAILY AND OBTAIN AN XRAY OF THE RIGHT FOOT. OTHERWISE, WE PLAN TO FOLLOW UP WITH AM LABS AND CONTINUE TO MONITOR PATIENT. - Past Medical History Past Medical History: Anxiety, COPD, GERD Additional Medical History: CHARCOT FOOT - Past Surgical History Surgical History: Ortho Surgery, Other - Family History Family Medical History: Diabetes Mellitus, Cancer - Social History Does patient currently use any type of tobacco product: No Have you used tobacco products in the last 12 months: No Type of Tobacco Use: None Does any household member use tobacco: No Alcohol Use: None Drug Use: None - Medications Home Medications: No Known Drug Allergies Allergy (Verified 11/23/17 17:48) CONTINUE taking the following medications polyethylene glycol 3350 [Miralax] 30 ml PO DAILY 11/23/17 [History] - Review of Systems Constitutional: Fever, Chills, Weakness Eyes: No Symptoms Reported ENT: No Symptoms Reported Respiratory: No Symptoms Reported Cardiovascular: Edema (BILATERAL FEET) Gastrointestinal: No Symptoms Reported Genitourinary: No Symptoms Reported Musculoskeletal: Leg Pain, Foot Pain (BILATERAL FEET ) Skin: Wound (RIGHT FOOT DRAINING WOUND ) Neurological: Weakness - Physical Exam Vital Signs: Temperature 98.2 F Pulse Rate [Left Brachial] 90 Pulse Rate 86 Respiratory Rate 20 Blood Pressure [Right Arm] 124/57 Blood Pressure [Left Arm] 122/65 Blood Pressure 136/65 O2 Sat by Pulse Oximetry 96 Oriented: Person Eyes: Normal Ear: Normal Nose: Normal Throat: Normal Respiratory: Clear Throughout Cardiovascular: Edema. negative: S3, S4, Murmur : Normal Auscultation: Bowel Sounds: Normal Palpation: Normal Tenderness: Normal Skin: Wound (RIGHT FOOT DRAINING WOUND) Musculoskeletal: Right, Left, Leg, Foot, Swelling, Tender Psychiatric: Normal Mood Description: Calm Affect: Normal Speech Pattern: Clear - Assessment/Plan (1) Pressure ulcer Qualifiers: Pressure injury location: foot, unspecified location Pressure injury stage : stage 3 Laterality: right Qualified Code(s): L89.893 - Pressure ulcer of other site, stage 3 Status: Acute Plan: WOUND CARE, CONSULT GENERAL SURGERY, IV ANTIBIOTICS, CONTINUE TO MONITOR - Allergies Allergies/Adverse Reactions: Allergies Allergy/AdvReac Type Severity Reaction Status Date / Time No Known Drug Allergies Allergy Verified 11/23/17 17:48
[2017-11-24] MEDS ORDERED: HYDROGEN PEROXIDE 3% ONE (14:27)
[2017-11-24] MEDS: XANAX PO PRN (16:02)
[2017-11-24] MEDS ORDERED: NS 250 ML IV 250 ML IV ONE (16:56)
[2017-11-25] MEDS: PERCOCET TAB 5/325 MG PO PRN ×6 (01:04→22:00)
[2017-11-25] MEDS: VANCOMYCIN HCL 500 MG VIAL 250 MG, VANCOMYCIN HCL 1 GM VIAL 1 G in D5W 250 ML IV 250 ML IV SCH ×2 (05:06→06:20)
[2017-11-25] MEDS: ZOSYN VIAL 4.5 GRAMS IV SCH (05:06)
[2017-11-25] MEDS ORDERED: NS 100 ML IV + SPIKE MINIBAG* 100 ML IV ONE (05:09)
[2017-11-25 05:20] LABS: BASOPHILS % (AUTO) 0.6 % (0.2-1.0); EOSINOPHILS # (AUTO) 0.7 x10^3/uL (0.0-0.2); EOSINOPHILS % (AUTO) 9.3 % (0.9-2.9); HEMATOCRIT 31.8 % (42.0-54.0); HEMOGLOBIN 10.5 g/dL (13.5-18.0); LYMPHOCYTES # (AUTO) 0.8 X10^3/uL (1.3-2.9); LYMPHOCYTES % (AUTO) 10.7 % (21.0-51.0); MEAN CORPUSCULAR HEMOGLOBIN 27.5 pg (27.0-34.0); MEAN CORPUSCULAR HGB CONC 33.1 g/dL (33.0-35.0); MEAN PLATELET VOLUME 7.8 fL (7.4-11.0); MONOCYTES # (AUTO) 0.7 x10^3/uL (0.3-0.8); MONOCYTES % (AUTO) 9.6 % (0.0-13.0); NEUTROPHILS # (AUTO) 5.1 x10^3/uL (2.2-4.8); NEUTROPHILS % (AUTO) 69.8 % (42.0-75.0); PLATELET COUNT 401 X10^3/uL (150.0-450.0); RED BLOOD COUNT 3.83 X10^6/uL (4.7-6.0); RED CELL DISTRIBUTION WIDTH 15.1 % (11.6-16.5); WHITE BLOOD COUNT 7.4 X10^3/uL (3.6-10.0)
[2017-11-25 05:34] LABS: ALANINE AMINOTRANSFERASE 35 Units/L (12-78); ALBUMIN 1.9 g/dL (3.4-5.0); ALKALINE PHOSPHATASE 74 Units/L (46-116); ASPARTATE AMINO TRANSFERASE 24 Units/L (15-37); BLOOD UREA NITROGEN 7 mg/dL (7-18); CALCIUM 8.4 mg/dL (8.5-10.1); CARBON DIOXIDE 30.5 mmol/L (21-32); CHLORIDE 104 mmol/L (98-107); COR CA(FOR HYPOALB) 10.1 mg/dL (8.5-10.1); SODIUM 140 mmol/L (136-145); eGFR NON BLACK RACES > 60 (>60)
[2017-11-25] MEDS ORDERED: PHARMACY COMMENT IV SCH (05:45)
[2017-11-25] MEDS ORDERED: VANCOMYCIN HCL 1 GM VIAL ONE (06:07)
[2017-11-25] MEDS ORDERED: D5W 250 ML IV 250 ML IV ONE (06:07)
[2017-11-25] MEDS ORDERED: VANCOMYCIN HCL 500 MG VIAL ONE (06:07)
[2017-11-25] MEDS: XANAX PO PRN ×2 (06:25→20:00)
--- NOTE | 2017-11-25 08:19 | PCM.PROG ---
Progress Note - Progress Note for Day of Date of Exam: 11/24/17 - Past Medical Family Social History Allergies: Allergies No Known Drug Allergies Allergy (Verified 11/23/17 17:48) - Vital Signs and I&O's Vital Signs: Temperature 97.6 F Pulse Rate [Left Brachial] 82 Pulse Rate 92 Respiratory Rate 20 Blood Pressure [Right Arm] 128/68 Blood Pressure [Left Arm] 122/65 Blood Pressure 136/65 O2 Sat by Pulse Oximetry 93 Intake and Output: Intake & Output 11/22/17 11/23/17 11/24/17 11/25/17 11:59 11:59 11:59 11:59 Intake Total 1438 / 1438 3470 / 3470 Output Total 600 / 600 Balance 838 / 838 3469 / 3469 - Physical Exam Oriented: Person Eyes: Normal Ear: Normal Nose: Normal Throat: Normal Cardiovascular: Edema. negative: S3, S4, Murmur : Normal Auscultation: Bowel Sounds: Normal Palpation: Normal Tenderness: Normal Skin: Wound (RIGHT FOOT DRAINING WOUND) Musculoskeletal: Right, Left, Leg, Foot, Swelling, Tender Psychiatric: Normal Mood Description: Calm Affect: Normal Speech Pattern: Clear - Laboratory and Diagnostics Result Diagrams: 11/25/17 04:06 11/25/17 04:06 Labs: 11/23/17 14:10 Foot - Right Gram Stain - Final 11/23/17 14:10 Foot - Right Wound Culture - Preliminary Laboratory WBC 7.4 X10^3/uL (3.6-10.0) 11/25/17 04:06 RBC 3.83 X10^6/uL (4.7-6.0) L 11/25/17 04:06 Hgb 10.5 g/dL (13.5-18.0) L 11/25/17 04:06 Hct 31.8 % (42.0-54.0) L 11/25/17 04:06 MCV 83.0 fL (80.0-100.0) 11/25/17 04:06 MCH 27.5 pg (27.0-34.0) 11/25/17 04:06 MCHC 33.1 g/dL (33.0-35.0) 11/25/17 04:06 RDW 15.1 % (11.6-16.5) 11/25/17 04:06 Plt Count 401 X10^3/uL (150.0-450.0) 11/25/17 04:06 MPV 7.8 fL (7.4-11.0) 11/25/17 04:06 Neut % (Auto) 69.8 % (42.0-75.0) 11/25/17 04:06 Lymph % (Auto) 10.7 % (21.0-51.0) L 11/25/17 04:06 [place] % (Auto) 9.6 % (0.0-13.0) 11/25/17 04:06 Eos % (Auto) 9.3 % (0.9-2.9) H 11/25/17 04:06 Baso % (Auto) 0.6 % (0.2-1.0) 11/25/17 04:06 Neut # (Auto) 5.1 x10^3/uL (2.2-4.8) H 11/25/17 04:06 Lymph # (Auto) 0.8 X10^3/uL (1.3-2.9) L 11/25/17 04:06 [place] # (Auto) 0.7 x10^3/uL (0.3-0.8) 11/25/17 04:06 Eos # (Auto) 0.7 x10^3/uL (0.0-0.2) H 11/25/17 04:06 Baso # (Auto) 0.0 X10^3/uL (0.0-0.1) 11/25/17 04:06 Absolute Nucleated RBC 0.1 /100WBC 11/25/17 04:06 Sodium 140 mmol/L (136-145) 11/25/17 04:06 Corrected Sodium TNP 11/25/17 04:06 Potassium 4.0 mmol/L (3.5-5.1) 11/25/17 04:06 Chloride 104 mmol/L (98-107) 11/25/17 04:06 Carbon Dioxide 30.5 mmol/L (21-32) 11/25/17 04:06 BUN 7 mg/dL (7-18) 11/25/17 04:06 Creatinine 0.90 mg/dL (0.70-1.30) 11/25/17 04:06 Est GFR (MDRD) Af Amer > 60 (>60) 11/25/17 04:06 Est GFR (MDRD) Non-Af > 60 (>60) 11/25/17 04:06 Glucose 91 mg/dL (65-99) 11/25/17 04:06 Lactic Acid 0.8 mmol/L (0.4-2.0) 11/23/17 14:10 Calcium 8.4 mg/dL (8.5-10.1) L 11/25/17 04:06 Corrected Calcium 10.1 mg/dL (8.5-10.1) 11/25/17 04:06 Magnesium 1.9 mg/dL (1.7-2.9) 11/24/17 04:00 Total Bilirubin 0.50 mg/dL (0.2-1.0) 11/25/17 04:06 AST 24 Units/L (15-37) 11/25/17 04:06 ALT 35 Units/L (12-78) 11/25/17 04:06 Alkaline Phosphatase 74 Units/L (46-116) 11/25/17 04:06 C-Reactive Protein 283.30 mg/L (0-3.0) H 11/23/17 14:10 Total Protein 6.0 g/dL (6.4-8.2) L 11/25/17 04:06 Albumin 1.9 g/dL (3.4-5.0) L 11/25/17 04:06 Globulin 4.1 g/dL (2.5-4.5) 11/25/17 04:06 Albumin/Globulin Ratio 0.5 Ratio (1.1-2.1) L 11/25/17 04:06 - Plan (1) Pressure ulcer Status: Acute Qualifiers: Pressure injury location: foot, unspecified location Pressure injury stage : stage 3 Laterality: right Qualified Code(s): L89.893 - Pressure ulcer of other site, stage 3 Plan: WOUND CARE, CONSULT GENERAL SURGERY, IV ANTIBIOTICS, CONTINUE TO MONITOR
[2017-11-25] MEDS: ALBUMIN HUMAN 25%- 100 ML 100 ML IV SCH (08:28)
[2017-11-25] MEDS: FLOMAX PO SCH ×2 (08:29→20:00)
[2017-11-25] MEDS: PROTONIX TAB 40 MG PO SCH (08:29)
[2017-11-25] MEDS: COLACE CAP 100 MG PO SCH ×2 (08:29→20:00)
[2017-11-25] MEDS: FLONASE NASAL SPRAY ENOSTRIL SCH ×2 (08:30→20:00)
[2017-11-25] MEDS: PROVENTIL NEB TX 0.083% 2.5MG/ 3ML NEB SCH ×2 (09:31→21:53)
[2017-11-25] MEDS: NS 1000 ML 1,000 ML IV SCH ×2 (11:47→21:41)
[2017-11-25] MEDS: INVANZ INJ 1 GM VIAL 1 GM in NS 100 ML IV + SPIKE MINIBAG* 100 ML IV SCH (12:50)
--- NOTE | 2017-11-25 13:10 | MRI ---
MRI right foot before after administration of IV contrast. Indication: Nonhealing wound of right foot Comparison: X-rays performed on 11/24/2017 Findings: There is a large ulceration along the plantar lateral aspect of the forefoot the ulceration extends to the level of the base of the 5th metatarsal bone seen best on sagittal image 10. There is associated cortical destruction and decreased T1 signal within the adjacent 5th metatarsal base. The re is increased PD signal within the 3rd, 4th and 5th metatarsal bones. Increased signal is also note d within the lateral and intermediate cuneiforms along with anterior process of the calcaneus. Large collections of subcutaneous gas are noted throughout the entire lateral half of the forefoot and midf oot, the largest pocket of gas is noted on image 24, series 1001. Postcontrast imaging demonstrates s imilar distribution of enhancement at the above described marrow signal abnormality with questionable subtle increased enhancement within the base of the 2nd metatarsal bone. The large pocket of gas as described within the lateral forefoot demonstrates a small air-fluid level consistent with abscess. Overall there is marked disorganization of the midfoot consistent with a neuropathic midfoot. Advance d osteoarthrosis of the ankle joint with complete collapse of the talus is noted. The mild osteoarthr osis of the great toe MTP joint with associated mild degenerative change of the 2nd, 4th and 5th MTP joints. Impression: 1.Large skin ulceration within the plantar lateral aspect of the right forefoot with extension of ulc eration to the base of the 5th metatarsal. Given marrow edema and abnormal enhancement there is osteo myelitis noted within the 3rd through 5th metatarsal bases, likely 2nd metatarsal base along with the intermediate, lateral cuneiform and anterior process of the calcaneus. Large collections of gas are noted throughout the lateral half of the mid and forefoot with an abscess noted within the dorsal lat eral aspect of the left forefoot. Surgical consultation is recommended. 2. 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 3. Degenerative changes as above. Reported By:
--- NOTE | 2017-11-25 14:48 | RAD ---
HISTORY: Left foot swelling Study: 3 views of the left foot. Comparison: None Findings: No acute fracture or dislocation. Severe joint space loss and degeneration involving the DIP joints, the 1st MCP joint and essentially all of the midfoot which is severely degenerated. Soft tissue swel ling on the plantar surface of the foot. IMPRESSION: 1. Soft tissue swelling on the plantar surface of the foot without definite underlying bony erosion or periosteal reaction. This is severely complicated by was 8 completely collapsed midfoot and severe degenerative change throughout the rest of the foot. It should be noted this examination cannot excl ude osteomyelitis. Reported By:
--- NOTE | 2017-11-25 16:28 | DR.PROGNOT ---
Hospital Progress Notes - Progress Note for Day of: Progress Note Date: 11/25/17 - Chief Complaint Chief Complaint: MRI and xrays showed osteomyelitis involving most of the Rt metatarsal and tarsal bones. deep abscess in the Lt foot with air formation , - Past Medical Family Social History Past Med/Fam/Surg Hx: No changes since H&P Allergies: Allergies No Known Drug Allergies Allergy (Verified 11/23/17 17:48) - Review Of Systems ROS: No change since H&P - Vital Signs Vital Signs: Temperature 98.6 F Pulse Rate [Left Brachial] 90 Pulse Rate 78 Respiratory Rate 20 Blood Pressure [Right Arm] 133/65 Blood Pressure [Left Arm] 122/65 Blood Pressure 136/65 O2 Sat by Pulse Oximetry 93 - Physical Exam Oriented: Person Eyes: Normal Ear: Normal Nose: Normal Throat: Normal Cardiovascular: Edema. negative: S3, S4, Murmur : Normal GI:Auscultation: Normal GI:Palpation: Other (large incarcerated abdominal wall hernia .) GI: Tenderness: Normal Skin: Wound (RIGHT FOOT DRAINING WOUND) Musculoskeletal: Right (large foot ulcer on the lateral aspect of the foot [id number] with exposed tarsal bone..), Left (large abscess on the plantar aspect was felt today ), Leg, Foot, Swelling, Tender Psychiatric: Normal Mood Description: Calm Affect: Normal Speech Pattern: Clear - Laboratory and Diagnostics Result Diagrams: 11/25/17 04:06 11/25/17 04:06 Labs: 11/23/17 14:15 Blood Blood Culture - Preliminary 11/23/17 14:10 Blood Blood Culture - Preliminary 11/23/17 14:10 Foot - Right Gram Stain - Final 11/23/17 14:10 Foot - Right Wound Culture - Preliminary [facility] WBC 7.4 X10^3/uL (3.6-10.0) 11/25/17 04:06 RBC 3.83 X10^6/uL (4.7-6.0) L 11/25/17 04:06 Hgb 10.5 g/dL (13.5-18.0) L 11/25/17 04:06 Hct 31.8 % (42.0-54.0) L 11/25/17 04:06 MCV 83.0 fL (80.0-100.0) 11/25/17 04:06 MCH 27.5 pg (27.0-34.0) 11/25/17 04:06 MCHC 33.1 g/dL (33.0-35.0) 11/25/17 04:06 RDW 15.1 % (11.6-16.5) 11/25/17 04:06 Plt Count 401 X10^3/uL (150.0-450.0) 11/25/17 04:06 MPV 7.8 fL (7.4-11.0) 11/25/17 04:06 Neut % (Auto) 69.8 % (42.0-75.0) 11/25/17 04:06 Lymph % (Auto) 10.7 % (21.0-51.0) L 11/25/17 04:06 [place] % (Auto) 9.6 % (0.0-13.0) 11/25/17 04:06 Eos % (Auto) 9.3 % (0.9-2.9) H 11/25/17 04:06 Baso % (Auto) 0.6 % (0.2-1.0) 11/25/17 04:06 Neut # (Auto) 5.1 x10^3/uL (2.2-4.8) H 11/25/17 04:06 Lymph # (Auto) 0.8 X10^3/uL (1.3-2.9) L 11/25/17 04:06 [place] # (Auto) 0.7 x10^3/uL (0.3-0.8) 11/25/17 04:06 Eos # (Auto) 0.7 x10^3/uL (0.0-0.2) H 11/25/17 04:06 Baso # (Auto) 0.0 X10^3/uL (0.0-0.1) 11/25/17 04:06 Absolute Nucleated RBC 0.1 /100WBC 11/25/17 04:06 Sodium 140 mmol/L (136-145) 11/25/17 04:06 Corrected Sodium TNP 11/25/17 04:06 Potassium 4.0 mmol/L (3.5-5.1) 11/25/17 04:06 Chloride 104 mmol/L (98-107) 11/25/17 04:06 Carbon Dioxide 30.5 mmol/L (21-32) 11/25/17 04:06 BUN 7 mg/dL (7-18) 11/25/17 04:06 Creatinine 0.90 mg/dL (0.70-1.30) 11/25/17 04:06 Est GFR (MDRD) Af Amer > 60 (>60) 11/25/17 04:06 Est GFR (MDRD) Non-Af > 60 (>60) 11/25/17 04:06 Glucose 91 mg/dL (65-99) 11/25/17 04:06 Lactic Acid 0.8 mmol/L (0.4-2.0) 11/23/17 14:10 Calcium 8.4 mg/dL (8.5-10.1) L 11/25/17 04:06 Corrected Calcium 10.1 mg/dL (8.5-10.1) 11/25/17 04:06 Magnesium 1.9 mg/dL (1.7-2.9) 11/24/17 04:00 Total Bilirubin 0.50 mg/dL (0.2-1.0) 11/25/17 04:06 AST 24 Units/L (15-37) 11/25/17 04:06 ALT 35 Units/L (12-78) 11/25/17 04:06 Alkaline Phosphatase 74 Units/L (46-116) 11/25/17 04:06 C-Reactive Protein 169.00 mg/L (0-3.0) H 11/25/17 04:06 Total Protein 6.0 g/dL (6.4-8.2) L 11/25/17 04:06 Albumin 1.9 g/dL (3.4-5.0) L 11/25/17 04:06 Globulin 4.1 g/dL (2.5-4.5) 11/25/17 04:06 Albumin/Globulin Ratio 0.5 Ratio (1.1-2.1) L 11/25/17 04:06 - Assessment and Plan 1: Rt foot ulcer with exposed metatarsal bones . abscess Lt foot 2: advanced peripheral neuropathy 3: Charcot feet deformaties 4: osteomyelitis both feet 5: needs drainage of the abscess in the OR - Problem Patient Problems: Patient Problems Cellulitis (Acute) L03.90 Pressure ulcer (Acute) L89.90 Pressure ulcer of right foot (Acute) L89.892
--- NOTE | 2017-11-25 19:07 | PCM.PROG ---
Progress Note - Progress Note for Day of Date of Exam: 11/25/17 - Subjective Subjective: WAS ADMITTED FOR A STAGE III, NON-HEALING WOUND TO THE RIGHT FOOT. TODAY, HE IS ALERT AND ORIENTED, LYING IN BED ON MORNING ROUNDS. HE CONTINUES WITH PAIN AND SWELLING TO THE RIGHT FOOT. ON EXAMINATION, HEART IS REGULAR IN RATE AND RHYTHM. BILATERAL LUNGS ARE CLEAR TO AUSCULTATION. ABDOMEN IS ROUND, SOFT, AND NON-TEDER WITH NORMAL BOWEL SOUNDS NOTED IN ALL QUADRANTS. WOUOND TO RIGHT FOOT CONTINUES WITH PURULENT DRAINAGE. HIS VITALS THIS MORNING ARE 98.5-85-20-94%-134/67. LABS WERE OBTAINED. ABNORMAL LAB VALUES INCLUDE THE FOLLOWING: RBC 3.83, HGB 10.5, HCT 31.8, CALCIUM 8.4, CRP 169.00, TOTAL PROTEIN 6.0, ALBUMIN 1.9. WOUND CULTURES REPORT GROWTH OF PROTEUS MIRABILIS. IT IS NOT SENSITIVE TO THE VANCOMYCIN THAT HE IS ON. WE WILL DISCONTINUE THE VANCOMYCIN AND ZOSYN AND START INVANZ 1GM IV DAILY TODAY. CONSULTED WITH PATIENT YESTERDAY AND RECOMMENDED DEBRIDEMENT OF WOUND, HOWEVER, PATIENT REFUSED AT THIS TIME. TODAY, WE WILL OBTAIN A LOWER EXTREMITY MRI. WE PLAN TO CONTINUE WITH IV ANTIBIOTICS AND WOUND CARE. OTHERWISE, WE WILL FOLLOW UP WITH AM LABS AND CONTINUE TO MONITOR PATIENT. - Past Medical Family Social History Past Med/Fam/Surg Hx: No changes since H&P Allergies: Allergies No Known Drug Allergies Allergy (Verified 11/23/17 17:48) - Review of Systems ROS: No change since H&P - Vital Signs and I&O's Vital Signs: Temperature 98.8 F Pulse Rate [Left Brachial] 92 Pulse Rate 78 Respiratory Rate 20 Blood Pressure [Right Arm] 142/81 Blood Pressure [Left Arm] 122/65 Blood Pressure 136/65 O2 Sat by Pulse Oximetry 90 Intake and Output: Intake & Output 11/23/17 11/24/17 11/25/17 11/26/17 11:59 11:59 11:59 11:59 Intake Total 1438 / 1438 3470 / 3470 1280 / 1280 Output Total 600 / 600 / Balance 838 / 838 3469 / 3469 1280 / 1280 - Physical Exam Oriented: Person Eyes: Normal Ear: Normal Nose: Normal Throat: Normal Respiratory: Normal Cardiovascular: Edema. negative: S3, S4, Murmur : Normal Auscultation: Bowel Sounds: Normal Palpation: Normal Tenderness: Normal Skin: Wound (RIGHT FOOT DRAINING WOUND) Musculoskeletal: Right (large foot ulcer on the lateral aspect of the foot [id number] with exposed tarsal bone..), Left (large abscess on the plantar aspect was felt today ), Leg, Foot, Swelling, Tender Psychiatric: Normal Mood Description: Calm Affect: Normal Speech Pattern: Clear - Laboratory and Diagnostics Result Diagrams: 11/25/17 04:06 11/25/17 04:06 Labs: 11/23/17 14:15 Blood Blood Culture - Preliminary 11/23/17 14:10 Blood Blood Culture - Preliminary 11/23/17 14:10 Foot - Right Gram Stain - Final 11/23/17 14:10 Foot - Right Wound Culture - Preliminary Proteus Mirabilis Laboratory WBC 7.4 X10^3/uL (3.6-10.0) 11/25/17 04:06 RBC 3.83 X10^6/uL (4.7-6.0) L 11/25/17 04:06 Hgb 10.5 g/dL (13.5-18.0) L 11/25/17 04:06 Hct 31.8 % (42.0-54.0) L 11/25/17 04:06 MCV 83.0 fL (80.0-100.0) 11/25/17 04:06 MCH 27.5 pg (27.0-34.0) 11/25/17 04:06 MCHC 33.1 g/dL (33.0-35.0) 11/25/17 04:06 RDW 15.1 % (11.6-16.5) 11/25/17 04:06 Plt Count 401 X10^3/uL (150.0-450.0) 11/25/17 04:06 MPV 7.8 fL (7.4-11.0) 11/25/17 04:06 Neut % (Auto) 69.8 % (42.0-75.0) 11/25/17 04:06 Lymph % (Auto) 10.7 % (21.0-51.0) L 11/25/17 04:06 [place] % (Auto) 9.6 % (0.0-13.0) 11/25/17 04:06 Eos % (Auto) 9.3 % (0.9-2.9) H 11/25/17 04:06 Baso % (Auto) 0.6 % (0.2-1.0) 11/25/17 04:06 Neut # (Auto) 5.1 x10^3/uL (2.2-4.8) H 11/25/17 04:06 Lymph # (Auto) 0.8 X10^3/uL (1.3-2.9) L 11/25/17 04:06 [place] # (Auto) 0.7 x10^3/uL (0.3-0.8) 11/25/17 04:06 Eos # (Auto) 0.7 x10^3/uL (0.0-0.2) H 11/25/17 04:06 Baso # (Auto) 0.0 X10^3/uL (0.0-0.1) 11/25/17 04:06 Absolute Nucleated RBC 0.1 /100WBC 11/25/17 04:06 Sodium 140 mmol/L (136-145) 11/25/17 04:06 Corrected Sodium TNP 11/25/17 04:06 Potassium 4.0 mmol/L (3.5-5.1) 11/25/17 04:06 Chloride 104 mmol/L (98-107) 11/25/17 04:06 Carbon Dioxide 30.5 mmol/L (21-32) 11/25/17 04:06 BUN 7 mg/dL (7-18) 11/25/17 04:06 Creatinine 0.90 mg/dL (0.70-1.30) 11/25/17 04:06 Est GFR (MDRD) Af Amer > 60 (>60) 11/25/17 04:06 Est GFR (MDRD) Non-Af > 60 (>60) 11/25/17 04:06 Glucose 91 mg/dL (65-99) 11/25/17 04:06 Lactic Acid 0.8 mmol/L (0.4-2.0) 11/23/17 14:10 Calcium 8.4 mg/dL (8.5-10.1) L 11/25/17 04:06 Corrected Calcium 10.1 mg/dL (8.5-10.1) 11/25/17 04:06 Magnesium 1.9 mg/dL (1.7-2.9) 11/24/17 04:00 Total Bilirubin 0.50 mg/dL (0.2-1.0) 11/25/17 04:06 AST 24 Units/L (15-37) 11/25/17 04:06 ALT 35 Units/L (12-78) 11/25/17 04:06 Alkaline Phosphatase 74 Units/L (46-116) 11/25/17 04:06 C-Reactive Protein 169.00 mg/L (0-3.0) H 11/25/17 04:06 Total Protein 6.0 g/dL (6.4-8.2) L 11/25/17 04:06 Albumin 1.9 g/dL (3.4-5.0) L 11/25/17 04:06 Globulin 4.1 g/dL (2.5-4.5) 11/25/17 04:06 Albumin/Globulin Ratio 0.5 Ratio (1.1-2.1) L 11/25/17 04:06 - Plan (1) Pressure ulcer Status: Acute Qualifiers: Pressure injury location: foot, unspecified location Pressure injury stage : stage 3 Laterality: right Qualified Code(s): L89.893 - Pressure ulcer of other site, stage 3 Plan: WOUND CARE, CONSULT GENERAL SURGERY, IV ANTIBIOTICS, OBTAIN MRI, CONTINUE TO MONITOR (2) Proteus mirabilis infection Status: Acute Plan: INVANZ 1GM IV DAILY, WOUND CARE, CONTINUE TO MONITOR
[2017-11-26] MEDS: PERCOCET TAB 5/325 MG PO PRN ×5 (02:56→21:40)
[2017-11-26 05:11] LABS: BASOPHILS % (AUTO) 0.8 % (0.2-1.0); EOSINOPHILS # (AUTO) 0.8 x10^3/uL (0.0-0.2); EOSINOPHILS % (AUTO) 13.4 % (0.9-2.9); HEMATOCRIT 32.6 % (42.0-54.0); HEMOGLOBIN 10.7 g/dL (13.5-18.0); LYMPHOCYTES # (AUTO) 0.8 X10^3/uL (1.3-2.9); LYMPHOCYTES % (AUTO) 12.8 % (21.0-51.0); MEAN CORPUSCULAR HEMOGLOBIN 27.2 pg (27.0-34.0); MEAN CORPUSCULAR HGB CONC 32.8 g/dL (33.0-35.0); MEAN CORPUSCULAR VOLUME 83.1 fL (80.0-100.0); MEAN PLATELET VOLUME 7.5 fL (7.4-11.0); MONOCYTES # (AUTO) 0.6 x10^3/uL (0.3-0.8); MONOCYTES % (AUTO) 9.4 % (0.0-13.0); NEUTROPHILS # (AUTO) 3.9 x10^3/uL (2.2-4.8); NEUTROPHILS % (AUTO) 63.6 % (42.0-75.0); PLATELET COUNT 434 X10^3/uL (150.0-450.0); RED BLOOD COUNT 3.92 X10^6/uL (4.7-6.0); RED CELL DISTRIBUTION WIDTH 15.1 % (11.6-16.5); WHITE BLOOD COUNT 6.1 X10^3/uL (3.6-10.0)
[2017-11-26 05:32] LABS: ALANINE AMINOTRANSFERASE 35 Units/L (12-78); ALBUMIN 2.3 g/dL (3.4-5.0); ALKALINE PHOSPHATASE 70 Units/L (46-116); ASPARTATE AMINO TRANSFERASE 23 Units/L (15-37); BLOOD UREA NITROGEN 6 mg/dL (7-18); CALCIUM 8.6 mg/dL (8.5-10.1); CARBON DIOXIDE 28.1 mmol/L (21-32); CHLORIDE 103 mmol/L (98-107); CREATININE 0.85 mg/dL (0.70-1.30); SODIUM 140 mmol/L (136-145); TOTAL PROTEIN 6.4 g/dL (6.4-8.2); eGFR NON BLACK RACES > 60 (>60)
[2017-11-26] MEDS: ALBUMIN HUMAN 25%- 100 ML 100 ML IV SCH (08:43)
[2017-11-26] MEDS: INVANZ INJ 1 GM VIAL 1 GM in NS 100 ML IV + SPIKE MINIBAG* 100 ML IV SCH (08:43)
[2017-11-26] MEDS: COLACE CAP 100 MG PO SCH ×2 (08:43→20:42)
[2017-11-26] MEDS: FLOMAX PO SCH ×2 (08:44→20:42)
[2017-11-26] MEDS: PROTONIX TAB 40 MG PO SCH (08:44)
[2017-11-26] MEDS: FLONASE NASAL SPRAY ENOSTRIL SCH ×2 (08:44→20:46)
[2017-11-26] MEDS: PROVENTIL NEB TX 0.083% 2.5MG/ 3ML NEB SCH ×2 (09:35→20:41)
[2017-11-26] MEDS ORDERED: XYLOCAINE 1 % (PLAIN) ONE (10:17)
[2017-11-26] MEDS ORDERED: BACITRACIN VIAL ONE (10:17)
[2017-11-26] MEDS ORDERED: LR 1000 ML IV 1,000 ML IV ONE (10:27)
[2017-11-26] MEDS ORDERED: ANCEF 1 GRAM IV PREMIX* 1 G/50 ML BAG IV ONE (10:27)
[2017-11-26] MEDS ORDERED: FENTANYL INJ 100 mcg ONE (11:03)
[2017-11-26] MEDS ORDERED: NS IRRIGATION 1000 ML 1,000 ML with BACITRACIN VIAL 50,000 UNIT IR ONE ×2 (12:13)
[2017-11-26] MEDS: NS 1000 ML 1,000 ML IV SCH (13:51)
[2017-11-26] MEDS ORDERED: VERSED ONE (15:01)
[2017-11-26] MEDS ORDERED: DIPRIVAN VIAL ONE (15:01)
[2017-11-26] MEDS: XANAX PO PRN (20:42)
[2017-11-27] MEDS: PERCOCET TAB 5/325 MG PO PRN ×3 (01:46→10:40)
[2017-11-27] MEDS: NS 1000 ML 1,000 ML IV SCH ×2 (03:59→15:24)
[2017-11-27 05:05] LABS: BASOPHILS # (AUTO) 0.2 X10^3/uL (0.0-0.1); BASOPHILS % (AUTO) 2.5 % (0.2-1.0); EOSINOPHILS # (AUTO) 0.5 x10^3/uL (0.0-0.2); EOSINOPHILS % (AUTO) 5.9 % (0.9-2.9); HEMOGLOBIN 11.2 g/dL (13.5-18.0); LYMPHOCYTES # (AUTO) 0.4 X10^3/uL (1.3-2.9); LYMPHOCYTES % (AUTO) 5.2 % (21.0-51.0); MEAN CORPUSCULAR HEMOGLOBIN 27.6 pg (27.0-34.0); MEAN CORPUSCULAR HGB CONC 32.9 g/dL (33.0-35.0); MEAN CORPUSCULAR VOLUME 83.8 fL (80.0-100.0); MEAN PLATELET VOLUME 7.7 fL (7.4-11.0); MONOCYTES # (AUTO) 0.5 x10^3/uL (0.3-0.8); MONOCYTES % (AUTO) 6.2 % (0.0-13.0); NEUTROPHILS # (AUTO) 6.4 x10^3/uL (2.2-4.8); NEUTROPHILS % (AUTO) 80.2 % (42.0-75.0); PLATELET COUNT 434 X10^3/uL (150.0-450.0); RED BLOOD COUNT 4.06 X10^6/uL (4.7-6.0); RED CELL DISTRIBUTION WIDTH 15.4 % (11.6-16.5)
[2017-11-27 05:27] LABS: ALANINE AMINOTRANSFERASE 40 Units/L (12-78); ALBUMIN 2.6 g/dL (3.4-5.0); ALKALINE PHOSPHATASE 66 Units/L (46-116); ASPARTATE AMINO TRANSFERASE 30 Units/L (15-37); BLOOD UREA NITROGEN 6 mg/dL (7-18); CALCIUM 8.8 mg/dL (8.5-10.1); CARBON DIOXIDE 29.5 mmol/L (21-32); CHLORIDE 102 mmol/L (98-107); COR CA(FOR HYPOALB) 9.9 mg/dL (8.5-10.1); CREATININE 0.82 mg/dL (0.70-1.30); SODIUM 139 mmol/L (136-145); TOTAL PROTEIN 6.6 g/dL (6.4-8.2); eGFR NON BLACK RACES > 60 (>60)
[2017-11-27 05:54] LABS: ERYTHROCYTE SEDIMENTATION RATE 45 MM/HOUR (0-15)
[2017-11-27] MEDS: PROVENTIL NEB TX 0.083% 2.5MG/ 3ML NEB SCH (08:41)
[2017-11-27] MEDS: COLACE CAP 100 MG PO SCH (08:59)
[2017-11-27] MEDS: ALBUMIN HUMAN 25%- 100 ML 100 ML IV SCH (09:00)
[2017-11-27] MEDS: PROTONIX TAB 40 MG PO SCH (09:00)
[2017-11-27] MEDS: FLONASE NASAL SPRAY ENOSTRIL SCH (09:00)
[2017-11-27] MEDS: FLOMAX PO SCH (09:00)
[2017-11-27] MEDS: INVANZ INJ 1 GM VIAL 1 GM in NS 100 ML IV + SPIKE MINIBAG* 100 ML IV SCH (09:00)
[2017-11-27 09:27] VITALS: BP 146/83
[2017-11-27] MEDS: XANAX PO PRN (10:39)
--- NOTE | 2018-01-04 23:49 | DR.CARTERD ---
- Discharge Summary for: Discharge Summary for Date of:: 11/27/17 - Admission Date Date of Admission: 11/23/17 - Admission Diagnoses Admission Diagnosis: (1) Infected Pressure ulcer - Discharge Date Discharge Date: 11/27/17 - Discharge Diagnoses Discharge Diagnosis: (1) Infected Pressure ulcer (2) Proteus mirabilis infection (3) Foot pain - Hospital Course Hospital Course: DAY ONE, MR. AWAD IS A 72 YEAR OLD PATIENT OF OURS WHO PRESENTED TO THE EMERGENCY ROOM WITH COMPLAINTS OF BILATERAL LOWER LEG AND FEET PAIN AND SWELLING. SPOUSE STATED THAT PATIENT HAD FEVER AND CONFUSION FOR THE PAST TWO DAYS. THERE WAS A WOUND TO THE RIGHT FOOT THAT WAS NOTED WITH PURULENT DRAINAGE. SPOUSE REPORTED THAT WOUND HAD BEEN PRESENT SINCE MARCH AND HAD PROGRESSIVELY GOTTEN WORSE. HE HAD A HISTORY OF CHARCOT FOOT. ON ARRIVAL, VITALS WERE 98.2-90-20-100%-122/65. LABS WERE OBTAINED. ABNORMAL LAB VALUES INCLUDED THE FOLLOWING: WBC 11.6, RBC 4.00, HGB 10.8, HCT 33.6, GLUCOSE 118, ALBUMIN 2.2, CRP 283.30. PATIENT WAS ADMITTED TO THE HOSPITAL FOR FURTHER EVAUATION AND TREATMENT. HE WAS STARTED ON ZOSYN 4.5GM IV TID AND VANCOMYCIN 1GM IV Q12H WELL NORMAL SALINE AT 80ML/HR. WE STARTED DRESSING CHANGES DAILY AND CONTINUED TO MONITOR PATIENT. DAY TWO, PATIENT CONTINUED WITH SWELLING TO RIGHT FOOT. A NON-HEALING ULCER TO RIGHT FOOT WAS NOTED. RIGHT FOOT XRAY REPORTED: Large soft tissue wound with subcutaneous large amounts of gas on the plantar lateral aspect of the foot. No definite associated adjacent osteomyelitis. Fracture of the base of the 5th metatarsal. Severe erosive changes of the tarsal bones and apparently of the ankle joint and erosive osteoarthritis about the 2nd metatarsal phalangeal joint. WE CONSULTED DR. PALOMARES. DAY THREE AND FOUR, AN MRI OF RIGHT LOWER EXTREMITY WAS OBTAINED AND REPORTED: Large skin ulceration within the plantar lateral aspect of the right forefoot with extension of ulceration to the base of the 5th metatarsal. Given marrow edema and abnormal enhancement there is osteomyelitis noted within the 3rd through 5th metatarsal bases, likely 2nd metatarsal base along with the intermediate, lateral cuneiform and anterior process of the calcaneus. Large collections of gas are noted throughout the lateral half of the mid and forefoot with an abscess noted within the dorsal lateral aspect of the left forefoot. Surgical consultation is recommended. 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 PATIENT CONTINUED WITH PAIN AND SWELLING TO RIGHT LOWER EXTREMITY. WOUND CULTURES REPORTED GROWTH OF PROTEUS MIRABILIS. IT WAS NOT SENSITIVE TO THE VANCOMYCIN THAT HE WAS ON. WE DISCONTINUED THE VANCOMYCIN AND ZOSYN AND STARTED INVANZ 1GM IV DAILY. CONSULTED WITH PATIENT AND RECOMMENDED DEBRIDEMENT OF WOUND, HOWEVER, PATIENT REFUSED AT THIS TIME. WE CONTINUED WITH IV ANTIBIOTICS AND WOUND CARE. WE CONTINUED TREATMENT AND MONITORED. DAY FIVE, PATIENT REPORTED IMPROVEMENT IN PAIN TO LOWER EXTREMITIES. RIGHT LOWER EXTREMITY SWELLING WAS IMPROVING WELL WOUND. VITAL SIGNS STABLE. LABS WNL. WE PLANNED FOR DISCHARGE. INSTRUCTIONS FOR MEDICATIONS AND FOLLOW UP WERE DISCUSSED WITH PATIENT AND FAMILY, BOTH VOICED UNDERSTANDING. PATIENT DISCHARGED HOME IN STABLE CONDITION WITH FAMILY. Labs: Microbiology 11/26/17 11:24 Foot - Left Gram Stain - Final 11/26/17 11:24 Foot - Left Wound Culture - Final Proteus Mirabilis 11/23/17 14:10 Foot - Right Gram Stain - Final 11/23/17 14:10 Foot - Right Wound Culture - Final Proteus Mirabilis Strep Agalactiae - (Group B) - Discharge Medications Discharge Medications: Home Medication List polyethylene glycol 3350 [Miralax] 30 ml PO DAILY 11/23/17 [History] ertapenem [Invanz] 1 g IV DAILY #42 ea 11/27/17 [Rx] gentamicin 1 applic TOPICAL BID #1 g 11/27/17 [Rx] levofloxacin [Levaquin] 750 mg PO QDAY #14 tab 11/27/17 [Rx] Prescriptions: ertapenem [Invanz] Ra Ramirez gentamicin Ra Ramirez levofloxacin [Levaquin] Ra Ramirez albuterol sulfate 2 puff INHALATION BID 08/24/17 alprazolam 0.25 mg PO BID PRN 08/24/17 docusate sodium 1 tab PO BID 08/24/17 fluticasone 1 spray INTRANASAL BID 08/24/17 oxycodone-acetaminophen 7.5 - 325 mg PO Q4H PRN 08/24/17 pantoprazole 40 mg PO DAILY 08/24/17 tamsulosin 0.4 mg PO BID 08/24/17 - Discharge Disposition Discharge Disposition: PATIENT IS TO FOLLOW UP IN OUR OFFICE IN ONE WEEK.
== END 2017-11-27 14:30 | disposition home health service (06) | DRG 602 ==
LOC: ICU 13:53 → ER 13:53 → ICU 17:19
PROVIDERS: ADMIT Internal Medicine; ATTEND Internal Medicine
DX: M79.661 Pain in right lower leg; M79.671 Pain in right foot; J44.9 Chronic obstructive pulmonary disease, unspecified; K21.9 Gastro-esophageal reflux disease without esophagitis; B95.1 Streptococcus, group B, as the cause of diseases classified elsewhere; L03.115 Cellulitis of right lower limb; R60.0 Localized edema; M86.8X7 Other osteomyelitis, ankle and foot; M79.672 Pain in left foot; L89.893 Pressure ulcer of other site, stage 3; B96.4 Proteus (mirabilis) (morganii) as the cause of diseases classified elsewhere; E11.65 Type 2 diabetes mellitus with hyperglycemia; M79.662 Pain in left lower leg; R79.82 Elevated C-reactive protein (CRP)
CPT/HCPCS: 36415; 36591; 73630; 73720; 80053; 83605; 83735; 85025; 85652; 86140; 87040; 87070; 87075; 87077; 87186; 87205; 88305; 94640; 96365; 97110; 97163; 97166; 97530; 97535; 99100; 99283; 99284; A4222; P9047; A9503; G0378; J0690; J1335; J1642; J2250; J2543; J2704; J3010; J3370; J7030; J7050; J7060; J7120; J7613; J8499

== ENCOUNTER 2018-04-21 10:22 | Inpatient (IN) ==
[2018-04-21] MEDS ORDERED: PHARMACY CONSULT - VANCOMYCIN XX SCH (11:02)
[2018-04-21 11:48] LABS: BASOPHILS # (AUTO) 0.1 X10^3/uL (0.0-0.1); BASOPHILS % (AUTO) 0.8 % (0.2-1.0); EOSINOPHILS # (AUTO) 0.2 x10^3/uL (0.0-0.2); EOSINOPHILS % (AUTO) 2.7 % (0.9-2.9); HEMATOCRIT 38.7 % (42.0-54.0); HEMOGLOBIN 12.5 g/dL (13.5-18.0); LYMPHOCYTES # (AUTO) 0.9 X10^3/uL (1.3-2.9); LYMPHOCYTES % (AUTO) 12.5 % (21.0-51.0); MEAN CORPUSCULAR HEMOGLOBIN 25.8 pg (27.0-34.0); MEAN CORPUSCULAR HGB CONC 32.2 g/dL (33.0-35.0); MEAN PLATELET VOLUME 8.2 fL (7.4-11.0); MONOCYTES # (AUTO) 0.8 x10^3/uL (0.3-0.8); MONOCYTES % (AUTO) 11.3 % (0.0-13.0); NEUTROPHILS # (AUTO) 5.1 x10^3/uL (2.2-4.8); NEUTROPHILS % (AUTO) 72.7 % (42.0-75.0); PLATELET COUNT 277 X10^3/uL (150.0-450.0); RED BLOOD COUNT 4.84 X10^6/uL (4.7-6.0); RED CELL DISTRIBUTION WIDTH 19.3 % (11.6-16.5)
[2018-04-21] MEDS: NS 1000 ML 1,000 ML IV SCH (12:00)
[2018-04-21 12:04] LABS: PLATELET MORPHOLOGY COMMENT NORMAL (NORMAL)
[2018-04-21 12:24] VITALS: BMI 27.2
[2018-04-21 12:26] LABS: ERYTHROCYTE SEDIMENTATION RATE 23 MM/HOUR (0-15)
[2018-04-21 13:05] LABS: ALANINE AMINOTRANSFERASE 20 Units/L (12-78); ALBUMIN 3.6 g/dL (3.4-5.0); ALKALINE PHOSPHATASE 76 Units/L (46-116); ASPARTATE AMINO TRANSFERASE 12 Units/L (15-37); BLOOD UREA NITROGEN 16 mg/dL (7-18); CALCIUM 9.7 mg/dL (8.5-10.1); CARBON DIOXIDE 29.4 mmol/L (21-32); CHLORIDE 101 mmol/L (98-107); CREATINE KINASE 60 Units/L (39-308); CREATINE KINASE MB 1.2 ng/mL (0-4.0); CREATININE 1.09 mg/dL (0.70-1.30); SODIUM 139 mmol/L (136-145); TOTAL PROTEIN 7.5 g/dL (6.4-8.2); TROPONIN I < 0.02 ng/mL (0-1.5); eGFR NON BLACK RACES > 60 (>60)
[2018-04-21] MEDS: VANCOMYCIN HCL 1 GM VIAL 1 G in D5W 250 ML IV 250 ML IV SCH ×2 (14:10→21:38)
--- NOTE | 2018-04-21 14:17 | RAD ---
HISTORY: Shortness of breath Study: AP portable chest Comparison: 08/26/2017 Findings: Near complete clearing of the right lung base is noted. There has been development of minimal atelectatic change/infiltrate in the left lung base. There appears to be a hiatal hernia. The heart size normal. A Port-A-Cath is present on the right the tip is at the cavoatrial junction. No acute IMPRESSION: 1. Near complete clearing of the right lung base with minimal residual atelectatic change/infiltrate. 2. Minimal infiltrate/atelectasis in the left lung base. 3. Hiatal hernia Reported By:
--- NOTE | 2018-04-21 14:36 | VAS ---
HISTORY: Left leg pain. Cellulitis left foot, Charcot joint. Study: Arterial Doppler ultrasound of the left lower extremity Comparison: No priors Technique: Grayscale, color and duplex Doppler evaluation of the arteries of left lower extremity are provided. Findings: Atherosclerotic plaque materials are present involving the common femoral artery which displays a biphasic waveform and normal peak systolic arterial velocity. Milder atherosclerotic irregularity is seen involving superficial femoral and popliteal artery the right side. Monophasic waveforms are present with normal velocity present involving the mid- distal left posterior tibial artery. Biphasic waveform is present with good velocity involving the dorsalis pedis artery on the left. No doubling of velocities is seen and no evidence of occlusion is identified. IMPRESSION: No evidence of focal hemodynamically significant stenosis. There is generalized atherosclerotic irregularity of the arteries of the left lower extremity. Diffuse atherosclerotic disease is seen involving the mid-distal posterior tibial artery. Reported By:
[2018-04-21 15:03] LABS: CREATINE KINASE 51 Units/L (39-308); TROPONIN I < 0.02 ng/mL (0-1.5)
[2018-04-21] MEDS: WOUND CARE XX SCH ×2 (16:27→23:26)
[2018-04-21 19:24] LABS: CKMB % 1.9 % (<4); CREATINE KINASE 54 Units/L (39-308); TROPONIN I < 0.02 ng/mL (0-1.5)
[2018-04-21] MEDS: COLACE CAP 100 MG PO PRN (21:35)
[2018-04-21] MEDS: NORCO 5/325 MG TAB PO PRN (21:36)
--- NOTE | 2018-04-21 23:54 | DR.PROGNOT ---
Hospital Progress Notes - Progress Note for Day of: Progress Note Date: 04/21/18 - Chief Complaint Chief Complaint: Pt is having chronic bilateral feet ulcer with what looks like chronic. osteomeylitis of both feet with sinus tracts keeping the ulcers active . adding to that advanced neuropathy , DM and charcot deformity . - Past Medical Family Social History Past Med/Fam/Surg Hx: No changes since H&P Allergies: Allergies No Known Drug Allergies Allergy (Verified 11/23/17 17:48) - Review Of Systems ROS: No change since H&P - Vital Signs Vital Signs: Temperature 97.9 F Pulse Rate [Right Brachial] 92 Respiratory Rate 24 Blood Pressure [Right Arm] 107/55 Blood Pressure [Left Arm] 125/75 Blood Pressure 125/75 O2 Sat by Pulse Oximetry 96 - Physical Exam Oriented: Normal Eyes: Normal Ear: Normal Nose: Normal Throat: Normal Respiratory: Normal : Normal GI:Auscultation: Normal GI:Palpation: Other (has large incarcerated umbilical hernia without bowel obstruction and loss of domain) GI: Tenderness: Normal Skin: Other (large skin ulcer Lt foot 6x5cm medial posterior plantar aspect with granulomas with exposed bone. there is another new sinus tract medial to it .. on the Rt foot 4x4cm open ulcer and sinus tract as well involving the plantar foot .) Speech Pattern: Clear, Appropriate - Laboratory and Diagnostics Result Diagrams: 04/21/18 11:26 04/21/18 11:26 Labs: 04/21/18 13:23 Foot - Left Gram Stain - Final 04/21/18 13:23 Foot - Right Gram Stain - Final Laboratory WBC 7.0 X10^3/uL (3.6-10.0) 04/21/18 11: RBC 4.84 X10^6/uL (4.7-6.0) 04/21/18 11:26 Hgb 12.5 g/dL (13.5-18.0) L 04/21/18 11:26 Hct 38.7 % (42.0-54.0) L 04/21/18 11: MCV 80.0 fL (80.0-100.0) 04/21/18 11: MCH 25.8 pg (27.0-34.0) L 04/21/18 11: MCHC 32.2 g/dL (33.0-35.0) L 04/21/18 11: RDW 19.3 % (11.6-16.5) H 04/21/18 11: Plt Count 277 X10^3/uL (150.0-450.0) 04/21/18 11:26 Plt Count Comment Adequate (ADEQUATE) 04/21/18 11:26 MPV 8.2 fL (7.4-11.0) 04/21/18 11:26 Neut % (Auto) 72.7 % (42.0-75.0) 04/21/18 11: Lymph % (Auto) 12.5 % (21.0-51.0) L 04/21/18 11: [place] % (Auto) 11.3 % (0.0-13.0) 04/21/18 11: Eos % (Auto) 2.7 % (0.9-2.9) 04/21/18 11: Baso % (Auto) 0.8 % (0.2-1.0) 04/21/18 11: Neut # (Auto) 5.1 x10^3/uL (2.2-4.8) H 04/21/18 11:26 Lymph # (Auto) 0.9 X10^3/uL (1.3-2.9) L 04/21/18 11:26 [place] # (Auto) 0.8 x10^3/uL (0.3-0.8) 04/21/18 11:26 Eos # (Auto) 0.2 x10^3/uL (0.0-0.2) 04/21/18 11: Baso # (Auto) 0.1 X10^3/uL (0.0-0.1) 04/21/18 11: Absolute Nucleated RBC 0.0 /100WBC 04/21/18 11:26 Plt Morphology Comment Normal (NORMAL) 04/21/18 11: RBC Morphology Normal (NORMAL) 04/21/18 11:26 ESR 23 MM/HOUR (0-15) H 04/21/18 11:26 Sodium 139 mmol/L (136-145) 04/21/18 11:26 Corrected Sodium TNP 04/21/18 11:26 Potassium 3.9 mmol/L (3.5-5.1) 04/21/18 11:26 Chloride 101 mmol/L (98-107) 04/21/18 11:26 Carbon Dioxide 29.4 mmol/L (21-32) 04/21/18 11:26 BUN 16 mg/dL (7-18) 04/21/18 11:26 Creatinine 1.09 mg/dL (0.70-1.30) 04/21/18 11:26 Est GFR (MDRD) Af Amer > 60 (>60) 04/21/18 11:26 Est GFR (MDRD) Non-Af > 60 (>60) 04/21/18 11:26 Glucose 99 mg/dL (65-99) 04/21/18 11:26 Hemoglobin A1c 6.0 % 04/21/18 11:26 Calcium 9.7 mg/dL (8.5-10.1) 04/21/18 11:26 Corrected Calcium TNP 04/21/18 11:26 Total Bilirubin 0.40 mg/dL (0.2-1.0) 04/21/18 11:26 AST 12 Units/L (15-37) L 04/21/18 11:26 ALT 20 Units/L (12-78) 04/21/18 11:26 Alkaline Phosphatase 76 Units/L (46-116) 04/21/18 11:26 Creatine Kinase 54 Units/L (39-308) 04/21/18 18:50 CK-MB (CK-2) 1.0 ng/mL (0-4.0) 04/21/18 18:50 CK/CKMB % Calc 1.9 % (<4) 04/21/18 18:50 Troponin I < 0.02 ng/mL (0-1.5) 04/21/18 18:50 C-Reactive Protein 26.50 mg/L (0-3.0) H 04/21/18 11:26 Total Protein 7.5 g/dL (6.4-8.2) 04/21/18 11:26 Albumin 3.6 g/dL (3.4-5.0) 04/21/18 11:26 Globulin 3.9 g/dL (2.5-4.5) 04/21/18 11:26 Albumin/Globulin Ratio 0.9 Ratio (1.1-2.1) L 04/21/18 11:26 - Assessment and Plan 1: chronic feet ulcers with 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 charcot joint both feet . advanced diabetic peripheral neuropathy . on IV ATB . for MRI both feet . will obtain bone cultures in the OR.
[2018-04-22] MEDS: NS 1000 ML 1,000 ML IV SCH (00:15)
[2018-04-22] MEDS: NORCO 5/325 MG TAB PO PRN ×4 (03:42→22:18)
[2018-04-22] MEDS: VANCOMYCIN HCL 1 GM VIAL 1 G in D5W 250 ML IV 250 ML IV SCH ×3 (05:02→21:28)
[2018-04-22 06:26] LABS: BASOPHILS % (AUTO) 0.8 % (0.2-1.0); EOSINOPHILS # (AUTO) 0.2 x10^3/uL (0.0-0.2); EOSINOPHILS % (AUTO) 2.9 % (0.9-2.9); HEMATOCRIT 37.5 % (42.0-54.0); LYMPHOCYTES # (AUTO) 0.9 X10^3/uL (1.3-2.9); LYMPHOCYTES % (AUTO) 16.1 % (21.0-51.0); MEAN CORPUSCULAR HEMOGLOBIN 25.5 pg (27.0-34.0); MEAN CORPUSCULAR HGB CONC 32.1 g/dL (33.0-35.0); MEAN CORPUSCULAR VOLUME 79.5 fL (80.0-100.0); MEAN PLATELET VOLUME 8.1 fL (7.4-11.0); MONOCYTES # (AUTO) 0.7 x10^3/uL (0.3-0.8); MONOCYTES % (AUTO) 12.6 % (0.0-13.0); NEUTROPHILS # (AUTO) 3.6 x10^3/uL (2.2-4.8); NEUTROPHILS % (AUTO) 67.6 % (42.0-75.0); PLATELET COUNT 250 X10^3/uL (150.0-450.0); RED BLOOD COUNT 4.72 X10^6/uL (4.7-6.0); RED CELL DISTRIBUTION WIDTH 19.5 % (11.6-16.5); WHITE BLOOD COUNT 5.3 X10^3/uL (3.6-10.0)
[2018-04-22 06:48] LABS: ALBUMIN 3.1 g/dL (3.4-5.0); BLOOD UREA NITROGEN 13 mg/dL (7-18); CALCIUM 9.2 mg/dL (8.5-10.1); CARBON DIOXIDE 26.7 mmol/L (21-32); CHLORIDE 103 mmol/L (98-107); COR CA(FOR HYPOALB) 9.9 mg/dL (8.5-10.1); CREATININE 0.84 mg/dL (0.70-1.30); SODIUM 138 mmol/L (136-145); eGFR NON BLACK RACES > 60 (>60)
[2018-04-22 06:56] LABS: PLATELET MORPHOLOGY COMMENT NORMAL (NORMAL)
[2018-04-22 07:29] LABS: ALANINE AMINOTRANSFERASE 15 Units/L (12-78); ALKALINE PHOSPHATASE 64 Units/L (46-116); ASPARTATE AMINO TRANSFERASE 10 Units/L (15-37); TOTAL PROTEIN 6.6 g/dL (6.4-8.2)
[2018-04-22] MEDS: WOUND CARE XX SCH ×2 (09:00→22:18)
[2018-04-22] MEDS: PROVENTIL NEB TX 0.083% 2.5MG/ 3ML NEB SCH ×2 (09:40→20:09)
[2018-04-22] MEDS ORDERED: ATIVAN TAB 1 MG ONE (13:21)
[2018-04-22] MEDS ORDERED: PHARMACY COMMENT IV NR (13:30)
[2018-04-22] MEDS ORDERED: ATIVAN TAB 1 MG PO ONE (17:08)
[2018-04-22 17:40] LABS: CREATININE 0.95 mg/dL (0.70-1.30); VANCOMYCIN,TROUGH 12.3 ug/mL (15-20)
--- NOTE | 2018-04-22 17:53 | MRI ---
MRI left lower extremity with and without contrast Indication: Foot swelling concern for cellulitis or osteomyelitis. Comparison: Radiographs on 11/25/2017 Technique: Multiplanar, multi sequence imaging of the left foot before after administration of IV contrast. Findings: Marked soft tissue swelling within the hindfoot with heterogeneous STIR signal and decreased T1 signal extending to what appears to be a ulceration along the plantar surface of the midfoot. Arthrodesis screws are noted within the distal calcaneus, cuboid and anterior process of the talus. Increased STIR signal with decreased T1 signal is highly suspicious for osteomyelitis of the calcaneus. Given the artifact from hardware evaluation for enhancement of the bone is not possible. There is essentially complete collapse of the midfoot with disorganization of the midfoot articulation and severe flattening of the midfoot. The visualized portions of the forefoot demonstrates circumferential mild soft tissue swelling without definite enhancement. There is hypertrophic new bone formation with subchondral bone marrow edema within the great toe metatarsal head and proximal phalanx. Sesamoid joint is intact. Remaining distal phalanges demonstrate central preserved marrow signal and joint spaces. Impression: Severely limited evaluation of the left foot secondary to metallic artifact obscuring much of the mid and hindfoot demonstrates a large area of soft tissue swelling and enhancing fluid within the plantar aspect of the mid and hindfoot. Abnormal signal extends to the calcaneus and it is not possible to exclude osteomyelitis of the calcaneus particularly given the contiguous soft tissue infection within the plantar foot. Evaluation of the remaining midfoot is limited by both hardware artifact and marked neuropathic changes and disorganization of the midfoot. Moderate osteoarthrosis of the great toe MTP joint. Reported By:
--- NOTE | 2018-04-22 18:28 | MRI ---
MRI right foot without contrast Indication: Lower extremity cellulitis with foot pain concern for osteomyelitis Technique: Multiplanar, multi sequence imaging of the right foot before after administration of 20 cc of MultiHance intravenously. Findings: There is skin ulceration within the plantar lateral aspect of the midfoot with a linear tract of fluid an abscess within the subcutaneous tissues of the lateral foot measuring approximately 2.0 x 2.6 cm on sagittal image 9, the peripheral enhancement and soft tissue enhancement extends from the subcutaneous tissues of the foot into the little toe and 4th toe metatarsal shafts. There is also abnormal enhancement and decreased T1 signal within the proximal 3rd toe metatarsal shaft. Jeremy disorganization of the entire midfoot with collapse of the talus, navicular and cuboid are noted. There is no definite abnormal signal or enhancement within the remaining calcaneal body or navicular bone. Signal within the great toe and 2nd toe phalanges is preserved however there is moderate osteoarthrosis of the 2nd toe TMT joint. Impression: 1.Large skin ulceration, lineasr abscess and localized cellulitis within the plantar aspect of the lateral left midfoot. The abscess tract and inflammation extends to the little toe metatarsal diaphysis with moderate increased enhancement and decreased T1 signal within the 4th and 5th metatarsal bones consistent with osteomyelitis. There is increased enhancement within the proximal 3rd metatarsal bone which is indeterminate for reactive changes in setting of osteoarthrosis/neuropathy; however given the contiguous infectious process osteomyelitis of the 3rd metatarsal base is also a consideration. 2. Marked neuropathic changes with collapse of the mid and hindfoot. Moderate osteoarthrosis of the 2nd toe TMT joint. Reported By:
[2018-04-22] MEDS: XANAX PO PRN (21:27)
[2018-04-22] MEDS: COLACE CAP 100 MG PO PRN (21:27)
[2018-04-22] MEDS: LOVENOX INJ 30 MG SYR SC SCH (21:28)
[2018-04-23] MEDS: VANCOMYCIN HCL 1 GM VIAL 1 G in D5W 250 ML IV 250 ML IV SCH ×3 (05:09→21:52)
[2018-04-23] MEDS: NS 1000 ML 1,000 ML IV SCH ×2 (05:13→19:09)
[2018-04-23 06:17] LABS: BASOPHILS % (AUTO) 0.3 % (0.2-1.0); EOSINOPHILS # (AUTO) 0.1 x10^3/uL (0.0-0.2); EOSINOPHILS % (AUTO) 0.9 % (0.9-2.9); HEMATOCRIT 40.9 % (42.0-54.0); LYMPHOCYTES # (AUTO) 0.5 X10^3/uL (1.3-2.9); MEAN CORPUSCULAR HEMOGLOBIN 25.6 pg (27.0-34.0); MEAN CORPUSCULAR HGB CONC 31.8 g/dL (33.0-35.0); MEAN CORPUSCULAR VOLUME 80.6 fL (80.0-100.0); MEAN PLATELET VOLUME 8.4 fL (7.4-11.0); MONOCYTES # (AUTO) 0.7 x10^3/uL (0.3-0.8); MONOCYTES % (AUTO) 11.9 % (0.0-13.0); NEUTROPHILS # (AUTO) 4.6 x10^3/uL (2.2-4.8); NEUTROPHILS % (AUTO) 77.9 % (42.0-75.0); PLATELET COUNT 264 X10^3/uL (150.0-450.0); RED BLOOD COUNT 5.08 X10^6/uL (4.7-6.0); RED CELL DISTRIBUTION WIDTH 19.5 % (11.6-16.5)
[2018-04-23 06:24] LABS: ALANINE AMINOTRANSFERASE 17 Units/L (12-78); ALBUMIN 3.3 g/dL (3.4-5.0); ALKALINE PHOSPHATASE 66 Units/L (46-116); ASPARTATE AMINO TRANSFERASE 12 Units/L (15-37); BLOOD UREA NITROGEN 13 mg/dL (7-18); CALCIUM 9.4 mg/dL (8.5-10.1); CARBON DIOXIDE 30.5 mmol/L (21-32); CHLORIDE 103 mmol/L (98-107); CREATININE 0.94 mg/dL (0.70-1.30); SODIUM 140 mmol/L (136-145); TOTAL PROTEIN 7.1 g/dL (6.4-8.2); eGFR NON BLACK RACES > 60 (>60)
[2018-04-23 06:48] LABS: PLATELET MORPHOLOGY COMMENT NORMAL (NORMAL)
[2018-04-23] MEDS: PROVENTIL NEB TX 0.083% 2.5MG/ 3ML NEB SCH ×2 (09:04→20:30)
[2018-04-23] MEDS: WOUND CARE XX SCH ×3 (09:40→22:44)
[2018-04-23] MEDS ORDERED: MARCAINE 0.25% INJ ONE (10:15)
[2018-04-23] MEDS ORDERED: XYLOCAINE 1 % (PLAIN) ONE (10:15)
[2018-04-23] MEDS ORDERED: BACTROBAN TOPICAL OINT ONE (10:15)
[2018-04-23] MEDS ORDERED: FENTANYL INJ 100 mcg ONE (10:39)
--- NOTE | 2018-04-23 11:34 | OR.GENERIC ---
Post-Op Note Generic - Post-Op Note Operative Report: underwent debridement , tissue and bone cultures of both feet ulcers was obtained . He has deep ulcers both feet extending to the metatarsal bones , the Lt one with large cavity in the midfoot . the tissue has good circulation though . all packed with Iodoform and ABD ..
[2018-04-23] MEDS: LOVENOX INJ 30 MG SYR SC SCH ×2 (12:16→21:50)
[2018-04-23] MEDS: XANAX PO PRN ×2 (12:17→21:50)
[2018-04-23] MEDS: NORCO 5/325 MG TAB PO PRN ×3 (12:17→23:50)
[2018-04-23] MEDS ORDERED: DIPRIVAN VIAL ONE (13:46)
[2018-04-23] MEDS ORDERED: VERSED ONE (13:46)
[2018-04-23 21:40] LABS: CREATININE 1.07 mg/dL (0.70-1.30)
[2018-04-23] MEDS ORDERED: PHARMACY CONSULT - VANCOMYCIN XX SCH (22:00)
[2018-04-23] MEDS ORDERED: VANCOMYCIN HCL 1 GM VIAL 1 G in D5W 250 ML IV 250 ML IV SCH (22:30)
[2018-04-24] MEDS: NS 1000 ML 1,000 ML IV SCH ×2 (03:49→19:19)
[2018-04-24] MEDS ORDERED: ULTRAM ONE (03:58)
[2018-04-24] MEDS: ULTRAM PO PRN ×2 (04:00→09:15)
[2018-04-24 05:35] LABS: ALANINE AMINOTRANSFERASE 18 Units/L (12-78); ALBUMIN 3.1 g/dL (3.4-5.0); ALKALINE PHOSPHATASE 61 Units/L (46-116); ASPARTATE AMINO TRANSFERASE 12 Units/L (15-37); BLOOD UREA NITROGEN 16 mg/dL (7-18); CALCIUM 8.8 mg/dL (8.5-10.1); CARBON DIOXIDE 28.5 mmol/L (21-32); CHLORIDE 102 mmol/L (98-107); COR CA(FOR HYPOALB) 9.5 mg/dL (8.5-10.1); CREATININE 0.97 mg/dL (0.70-1.30); SODIUM 137 mmol/L (136-145); TOTAL PROTEIN 6.6 g/dL (6.4-8.2); eGFR NON BLACK RACES > 60 (>60)
[2018-04-24 05:40] LABS: BASOPHILS % (AUTO) 0.5 % (0.2-1.0); EOSINOPHILS % (AUTO) 0.8 % (0.9-2.9); HEMATOCRIT 39.2 % (42.0-54.0); HEMOGLOBIN 12.6 g/dL (13.5-18.0); LYMPHOCYTES # (AUTO) 0.6 X10^3/uL (1.3-2.9); LYMPHOCYTES % (AUTO) 9.5 % (21.0-51.0); MEAN CORPUSCULAR HEMOGLOBIN 25.8 pg (27.0-34.0); MEAN CORPUSCULAR HGB CONC 32.2 g/dL (33.0-35.0); MEAN PLATELET VOLUME 8.6 fL (7.4-11.0); MONOCYTES % (AUTO) 16.1 % (0.0-13.0); NEUTROPHILS # (AUTO) 4.5 x10^3/uL (2.2-4.8); NEUTROPHILS % (AUTO) 73.1 % (42.0-75.0); PLATELET COUNT 239 X10^3/uL (150.0-450.0); RED CELL DISTRIBUTION WIDTH 19.3 % (11.6-16.5); WHITE BLOOD COUNT 6.2 X10^3/uL (3.6-10.0)
[2018-04-24 05:52] LABS: PLATELET MORPHOLOGY COMMENT NORMAL (NORMAL)
[2018-04-24] MEDS: NORCO 5/325 MG TAB PO PRN ×3 (06:17→21:45)
[2018-04-24] MEDS: PROVENTIL NEB TX 0.083% 2.5MG/ 3ML NEB SCH ×2 (08:22→20:40)
[2018-04-24] MEDS: VANCOMYCIN HCL 1 GM VIAL 1 G in D5W 250 ML IV 250 ML IV SCH ×2 (09:16→21:00)
[2018-04-24] MEDS: LOVENOX INJ 30 MG SYR SC SCH ×2 (09:16→21:44)
[2018-04-24] MEDS ORDERED: NS IRRIGATION 1000 ML ONE (10:33)
[2018-04-24] MEDS: WOUND CARE XX SCH ×2 (12:49→22:49)
[2018-04-25] MEDS: NORCO 5/325 MG TAB PO PRN ×4 (03:14→21:19)
[2018-04-25 05:48] LABS: BASOPHILS % (AUTO) 0.6 % (0.2-1.0); HEMATOCRIT 37.2 % (42.0-54.0); HEMOGLOBIN 11.9 g/dL (13.5-18.0); LYMPHOCYTES # (AUTO) 0.9 X10^3/uL (1.3-2.9); LYMPHOCYTES % (AUTO) 17.7 % (21.0-51.0); MEAN CORPUSCULAR HEMOGLOBIN 25.7 pg (27.0-34.0); MEAN CORPUSCULAR VOLUME 80.5 fL (80.0-100.0); MEAN PLATELET VOLUME 8.8 fL (7.4-11.0); MONOCYTES # (AUTO) 0.9 x10^3/uL (0.3-0.8); MONOCYTES % (AUTO) 17.4 % (0.0-13.0); NEUTROPHILS # (AUTO) 3.2 x10^3/uL (2.2-4.8); NEUTROPHILS % (AUTO) 63.3 % (42.0-75.0); PLATELET COUNT 228 X10^3/uL (150.0-450.0); RED BLOOD COUNT 4.62 X10^6/uL (4.7-6.0); RED CELL DISTRIBUTION WIDTH 19.1 % (11.6-16.5)
[2018-04-25] MEDS: NS 1000 ML 1,000 ML IV SCH ×2 (05:59→21:32)
[2018-04-25 06:11] LABS: ANISOCYTOSIS SLIGHT; HYPOCHROMASIA SLIGHT; PLATELET MORPHOLOGY COMMENT NORMAL (NORMAL)
[2018-04-25 06:13] LABS: ALANINE AMINOTRANSFERASE 18 Units/L (12-78); ASPARTATE AMINO TRANSFERASE 13 Units/L (15-37); CALCIUM 8.7 mg/dL (8.5-10.1); CARBON DIOXIDE 27.3 mmol/L (21-32); CHLORIDE 102 mmol/L (98-107); CREATININE 0.94 mg/dL (0.70-1.30); SODIUM 138 mmol/L (136-145); eGFR NON BLACK RACES > 60 (>60)
[2018-04-25 06:25] LABS: ALBUMIN 2.8 g/dL (3.4-5.0); ALKALINE PHOSPHATASE 55 Units/L (46-116); BLOOD UREA NITROGEN 17 mg/dL (7-18); COR CA(FOR HYPOALB) 9.7 mg/dL (8.5-10.1); TOTAL PROTEIN 6.3 g/dL (6.4-8.2)
[2018-04-25] MEDS ORDERED: POTASSIUM CHLORIDE LIQ 20 MEQ UDC PO PRN (07:51)
[2018-04-25] MEDS ORDERED: POTASSIUM CHL 40 MEQ/NS 0.45% 500 ML IV PRN (07:51)
[2018-04-25] MEDS ORDERED: MICRO K EXTEN CAP 10 MEQ PO PRN (07:51)
[2018-04-25] MEDS ORDERED: K-RIDER 10 MEQ/NS 100 ML 10 MEQ/100 ML BAG IV PRN (07:51)
[2018-04-25] MEDS ORDERED: K-DUR TAB 20 MEQ PO PRN (07:51)
[2018-04-25] MEDS ORDERED: KLOR-CON PO PRN (07:51)
[2018-04-25] MEDS ORDERED: POTASSIUM CHL 60 MEQ/NS 0.45% 500 ML IV PRN (07:51)
[2018-04-25] MEDS: VANCOMYCIN HCL 1 GM VIAL 1 G in D5W 250 ML IV 250 ML IV SCH ×2 (08:10→21:00)
[2018-04-25] MEDS: LOVENOX INJ 30 MG SYR SC SCH ×2 (08:10→20:54)
[2018-04-25] MEDS: PROVENTIL NEB TX 0.083% 2.5MG/ 3ML NEB SCH ×2 (08:19→20:27)
[2018-04-25] MEDS: WOUND CARE XX SCH ×2 (10:51→22:30)
[2018-04-25 20:26] LABS: CREATININE 1.01 mg/dL (0.70-1.30); VANCOMYCIN,TROUGH 13.4 ug/mL (15-20)
[2018-04-25] MEDS ORDERED: PHARMACY COMMENT IV NR (20:30)
[2018-04-25] MEDS: XANAX PO PRN ×2 (23:32→23:38)
[2018-04-26] MEDS: NORCO 5/325 MG TAB PO PRN ×3 (03:24→21:01)
[2018-04-26 05:12] LABS: BASOPHILS % (AUTO) 0.7 % (0.2-1.0); EOSINOPHILS # (AUTO) 0.1 x10^3/uL (0.0-0.2); HEMATOCRIT 38.8 % (42.0-54.0); HEMOGLOBIN 12.3 g/dL (13.5-18.0); LYMPHOCYTES # (AUTO) 0.9 X10^3/uL (1.3-2.9); LYMPHOCYTES % (AUTO) 24.5 % (21.0-51.0); MEAN CORPUSCULAR HEMOGLOBIN 25.7 pg (27.0-34.0); MEAN CORPUSCULAR HGB CONC 31.8 g/dL (33.0-35.0); MEAN CORPUSCULAR VOLUME 80.9 fL (80.0-100.0); MEAN PLATELET VOLUME 8.4 fL (7.4-11.0); MONOCYTES # (AUTO) 0.5 x10^3/uL (0.3-0.8); MONOCYTES % (AUTO) 15.1 % (0.0-13.0); NEUTROPHILS % (AUTO) 55.7 % (42.0-75.0); PLATELET COUNT 248 X10^3/uL (150.0-450.0); RED BLOOD COUNT 4.79 X10^6/uL (4.7-6.0); RED CELL DISTRIBUTION WIDTH 19.1 % (11.6-16.5); WHITE BLOOD COUNT 3.6 X10^3/uL (3.6-10.0)
[2018-04-26 05:24] LABS: ALANINE AMINOTRANSFERASE 21 Units/L (12-78); ALBUMIN 2.9 g/dL (3.4-5.0); ALKALINE PHOSPHATASE 56 Units/L (46-116); ASPARTATE AMINO TRANSFERASE 14 Units/L (15-37); BLOOD UREA NITROGEN 14 mg/dL (7-18); CALCIUM 8.9 mg/dL (8.5-10.1); CHLORIDE 103 mmol/L (98-107); COR CA(FOR HYPOALB) 9.8 mg/dL (8.5-10.1); CREATININE 0.91 mg/dL (0.70-1.30); SODIUM 140 mmol/L (136-145); TOTAL PROTEIN 6.5 g/dL (6.4-8.2); eGFR NON BLACK RACES > 60 (>60)
[2018-04-26 05:51] LABS: PLATELET MORPHOLOGY COMMENT NORMAL (NORMAL)
[2018-04-26 05:52] LABS: ANISOCYTOSIS SLIGHT; HYPOCHROMASIA SLIGHT
[2018-04-26] MEDS: PROVENTIL NEB TX 0.083% 2.5MG/ 3ML NEB SCH ×2 (08:31→20:21)
[2018-04-26] MEDS: LOVENOX INJ 30 MG SYR SC SCH ×2 (09:55→21:00)
[2018-04-26] MEDS: VANCOMYCIN HCL 1 GM VIAL 1 G in D5W 250 ML IV 250 ML IV SCH ×2 (10:10→21:00)
[2018-04-26] MEDS: WOUND CARE XX SCH (11:00)
[2018-04-26] MEDS: XANAX PO PRN ×2 (12:12→21:01)
--- NOTE | 2018-04-26 14:44 | DR.PROGNOT ---
Hospital Progress Notes - Progress Note for Day of: Progress Note Date: 04/26/18 - Chief Complaint Chief Complaint: dressing of both feet was changed and repacked . no changes ,. deep cultures revealed - Past Medical Family Social History Past Med/Fam/Surg Hx: No changes since H&P Allergies: Allergies No Known Drug Allergies Allergy (Verified 11/23/17 17:48) - Review Of Systems ROS: No change since H&P - Vital Signs Vital Signs: Temperature 98.0 F Pulse Rate [Left Brachial] 73 Pulse Rate [Right Brachial] 65 Pulse Rate 72 Respiratory Rate 20 Blood Pressure [Right Arm] 109/61 Blood Pressure [Left Arm] 106/67 Blood Pressure 125/75 O2 Sat by Pulse Oximetry 94 - Physical Exam Oriented: Normal Eyes: Normal Ear: Normal Nose: Normal Throat: Normal Respiratory: Normal : Normal GI:Auscultation: Normal GI:Palpation: Other (has large incarcerated umbilical hernia without bowel obstr uction and loss of domain) GI: Tenderness: Normal Skin: Other (large skin ulcer Lt foot 6x5cm medial posterior plantar aspect with granulomas with exposed bone. there is another new sinus tract medial to it .. on the Rt foot 4x4cm open ulcer and sinus tract as well involving the plantar foot .) Mood Description: Calm Speech Pattern: Clear, Appropriate - Laboratory and Diagnostics Result Diagrams: 04/26/18 04:41 04/26/18 04:41 Labs: 04/21/18 11:29 Blood Blood Culture - Final 04/21/18 11:26 Blood Blood Culture - Final 04/23/18 10:56 Foot - Left Gram Stain - Final 04/23/18 10:56 Foot - Left Wound Culture - Preliminary 04/23/18 11:16 Foot - Right - Preliminary Enterococcus Faecalis 04/23/18 11:16 Foot - Left - Preliminary Enterococcus Faecalis 04/21/18 13:23 Foot - Right Gram Stain - Final 04/21/18 13:23 Foot - Right Wound Culture - Final 04/21/18 13:23 Foot - Left Gram Stain - Final 04/21/18 13:23 Foot - Left Wound Culture - Final Laboratory WBC 3.6 X10^3/uL (3.6-10.0) 04/26/18 04:41 RBC 4.79 X10^6/uL (4.7-6.0) 04/26/18 04:41 Hgb 12.3 g/dL (13.5-18.0) L 04/26/18 04:41 Hct 38.8 % (42.0-54.0) L 04/26/18 04:41 MCV 80.9 fL (80.0-100.0) 04/26/18 04:41 MCH 25.7 pg (27.0-34.0) L 04/26/18 04:41 MCHC 31.8 g/dL (33.0-35.0) L 04/26/18 04:41 RDW 19.1 % (11.6-16.5) H 04/26/18 04:41 Plt Count 248 X10^3/uL (150.0-450.0) 04/26/18 04:41 Plt Count Comment Adequate (ADEQUATE) 04/26/18 04:41 MPV 8.4 fL (7.4-11.0) 04/26/18 04:41 Neut % (Auto) 55.7 % (42.0-75.0) 04/26/18 04:41 Lymph % (Auto) 24.5 % (21.0-51.0) 04/26/18 04:41 [place] % (Auto) 15.1 % (0.0-13.0) H 04/26/18 04:41 Eos % (Auto) 4.0 % (0.9-2.9) H 04/26/18 04:41 Baso % (Auto) 0.7 % (0.2-1.0) 04/26/18 04:41 Neut # (Auto) 2.0 x10^3/uL (2.2-4.8) L 04/26/18 04:41 Lymph # (Auto) 0.9 X10^3/uL (1.3-2.9) L 04/26/18 04:41 [place] # (Auto) 0.5 x10^3/uL (0.3-0.8) 04/26/18 04:41 Eos # (Auto) 0.1 x10^3/uL (0.0-0.2) 04/26/18 04:41 Baso # (Auto) 0.0 X10^3/uL (0.0-0.1) 04/26/18 04:41 Absolute Nucleated RBC 0.3 /100WBC 04/26/18 04:41 Plt Morphology Comment Normal (NORMAL) 04/26/18 04:41 RBC Morphology Abnormal (NORMAL) 04/26/18 04:41 Hypochromasia Slight A 04/26/18 04:41 Anisocytosis Slight A 04/26/18 04:41 ESR 23 MM/HOUR (0-15) H 04/21/18 11:26 Sodium 140 mmol/L (136-145) 04/26/18 04:41 Corrected Sodium TNP 04/26/18 04:41 Potassium 3.8 mmol/L (3.5-5.1) 04/26/18 04:41 Chloride 103 mmol/L (98-107) 04/26/18 04:41 Carbon Dioxide 28.0 mmol/L (21-32) 04/26/18 04:41 BUN 14 mg/dL (7-18) 04/26/18 04:41 Creatinine 0.91 mg/dL (0.70-1.30) 04/26/18 04:41 Est GFR (MDRD) Af Amer > 60 (>60) 04/26/18 04:41 Est GFR (MDRD) Non-Af > 60 (>60) 04/26/18 04:41 Glucose 81 mg/dL (65-99) 04/26/18 04:41 Hemoglobin A1c 6.0 % 04/21/18 11:26 Calcium 8.9 mg/dL (8.5-10.1) 04/26/18 04:41 Corrected Calcium 9.8 mg/dL (8.5-10.1) 04/26/18 04:41 Magnesium 1.8 mg/dL (1.7-2.9) 04/25/18 04:40 Total Bilirubin 0.30 mg/dL (0.2-1.0) 04/26/18 04:41 AST 14 Units/L (15-37) L 04/26/18 04:41 ALT 21 Units/L (12-78) 04/26/18 04:41 Alkaline Phosphatase 56 Units/L (46-116) 04/26/18 04:41 Creatine Kinase 54 Units/L (39-308) 04/21/18 18:50 CK-MB (CK-2) 1.0 ng/mL (0-4.0) 04/21/18 18:50 CK/CKMB % Calc 1.9 % (<4) 04/21/18 18:50 Troponin I < 0.02 ng/mL (0-1.5) 04/21/18 18:50 C-Reactive Protein 26.50 mg/L (0-3.0) H 04/21/18 11:26 Total Protein 6.5 g/dL (6.4-8.2) 04/26/18 04:41 Albumin 2.9 g/dL (3.4-5.0) L 04/26/18 04:41 Globulin 3.6 g/dL (2.5-4.5) 04/26/18 04:41 Albumin/Globulin Ratio 0.8 Ratio (1.1-2.1) L 04/26/18 04:41 Vancomycin Trough 13.4 ug/mL (15-20) L 04/25/18 20:01 - Assessment and Plan 1: chronic feet ulcers with 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 charcot joint both feet . advanced diabetic peripheral neuropathy . on IV ATB . Pt needs another long course (2 months )of IV ATB at home .
[2018-04-26] MEDS: COLACE CAP 100 MG PO PRN (21:01)
[2018-04-27] MEDS: WOUND CARE XX SCH ×3 (01:06→22:48)
[2018-04-27] MEDS: NS 1000 ML 1,000 ML IV SCH ×2 (04:04→12:32)
[2018-04-27 06:15] LABS: BASOPHILS % (AUTO) 0.8 % (0.2-1.0); EOSINOPHILS # (AUTO) 0.4 x10^3/uL (0.0-0.2); EOSINOPHILS % (AUTO) 9.3 % (0.9-2.9); HEMATOCRIT 40.3 % (42.0-54.0); LYMPHOCYTES # (AUTO) 0.8 X10^3/uL (1.3-2.9); LYMPHOCYTES % (AUTO) 19.7 % (21.0-51.0); MEAN CORPUSCULAR HEMOGLOBIN 25.7 pg (27.0-34.0); MEAN CORPUSCULAR HGB CONC 32.4 g/dL (33.0-35.0); MEAN CORPUSCULAR VOLUME 79.3 fL (80.0-100.0); MEAN PLATELET VOLUME 8.5 fL (7.4-11.0); MONOCYTES # (AUTO) 0.5 x10^3/uL (0.3-0.8); MONOCYTES % (AUTO) 12.3 % (0.0-13.0); NEUTROPHILS # (AUTO) 2.3 x10^3/uL (2.2-4.8); NEUTROPHILS % (AUTO) 57.9 % (42.0-75.0); PLATELET COUNT 258 X10^3/uL (150.0-450.0); RED BLOOD COUNT 5.08 X10^6/uL (4.7-6.0); RED CELL DISTRIBUTION WIDTH 19.2 % (11.6-16.5)
[2018-04-27 06:29] LABS: BLOOD UREA NITROGEN 13 mg/dL (7-18); CALCIUM 8.9 mg/dL (8.5-10.1); CARBON DIOXIDE 30.5 mmol/L (21-32); CHLORIDE 102 mmol/L (98-107); CREATININE 0.89 mg/dL (0.70-1.30); SODIUM 139 mmol/L (136-145); eGFR NON BLACK RACES > 60 (>60)
[2018-04-27 06:45] LABS: HYPOCHROMASIA SLIGHT; PLATELET MORPHOLOGY COMMENT NORMAL (NORMAL)
[2018-04-27] MEDS: COLACE CAP 100 MG PO PRN ×2 (08:44→21:35)
[2018-04-27] MEDS: XANAX PO PRN ×2 (08:44→21:35)
[2018-04-27] MEDS: NORCO 5/325 MG TAB PO PRN ×3 (08:44→21:36)
[2018-04-27] MEDS: VANCOMYCIN HCL 1 GM VIAL 1 G in D5W 250 ML IV 250 ML IV SCH ×2 (08:45→21:38)
[2018-04-27] MEDS: MILK OF MAGNESIA PO PRN (08:45)
[2018-04-27] MEDS: LOVENOX INJ 30 MG SYR SC SCH ×2 (08:45→21:34)
[2018-04-27] MEDS: PROVENTIL NEB TX 0.083% 2.5MG/ 3ML NEB SCH ×2 (08:47→20:53)
[2018-04-27 13:04] LABS: ALANINE AMINOTRANSFERASE 24 Units/L (12-78); ALBUMIN 3.2 g/dL (3.4-5.0); ALKALINE PHOSPHATASE 58 Units/L (46-116); ASPARTATE AMINO TRANSFERASE 17 Units/L (15-37); COR CA(FOR HYPOALB) 9.5 mg/dL (8.5-10.1); TOTAL PROTEIN 6.9 g/dL (6.4-8.2)
--- NOTE | 2018-04-27 18:57 | PCM.PROG ---
Progress Note - Progress Note for Day of Date of Exam: 04/27/18 - Subjective Subjective: IS BEING TREATED FOR BILATERAL LOWER EXTREMITY CELLULITIS AND LEFT LOWER EXTREMITY OSTEOMYELITIS. ULCERS TO BILATERAL FEET WERE DEBRIDED BY ON 04/23/18. BIOPSIES AND NEW CULTURES WERE TAKEN WHILE HE WAS IN THE OR. WOUND CULTURES THAT WERE OBTAINED ON ADMISSION REVEALED GROWTH OF ENTEROCOCCUS FAECALIS AND STAPHYLOCOCCUS EPIDERMIDIS. TODAY, HE IS ALERT AND ORIENTED, LYING IN BED ON MORNING ROUNDS. HE DENIES COMPLAINTS THIS MORNING. HIS VITALS TODAY ARE 98.4-84-18-94%-127/68. LABS WERE OBTAINED. ABNORMAL LAB VALUES INCLUDE THE FOLLOWING: HGB 13.0, HCT 40.3, ALBUMIN 3.2. HE IS CURRENTLY RECEIVING VANCOMYCIN 1G IV Q12H. WOUND CARE IS BEING PERFORMED TWICE A DAY. RECOMMENDS AN EXTENDED COURSE OF ANTIBIOTICS AFTER DISCHARGE FOR TWO MONTHS. WE WILL CONTINUE WITH IV ANTIBIOTICS AND CURRENT PLAN OF CARE TODAY. WE PLAN TO FOLLOW UP WITH AM LABS AND CONTINUE TO MONITOR. - Past Medical Family Social History Past Med/Fam/Surg Hx: No changes since H&P Allergies: Allergies No Known Drug Allergies Allergy (Verified 11/23/17 17:48) - Review of Systems ROS: No change since H&P - Vital Signs and I&O's Vital Signs: Temperature 97.8 F Pulse Rate [Left Brachial] 72 Pulse Rate [Right Brachial] 65 Pulse Rate 80 Respiratory Rate 20 Blood Pressure [Right Arm] 109/65 Blood Pressure [Left Arm] 106/67 Blood Pressure 125/75 O2 Sat by Pulse Oximetry 94 Intake and Output: Intake & Output 04/25/18 04/26/18 04/27/18 04/28/18 11:59 11:59 11:59 11:59 Intake Total 1610 / 1610 2220 / 2220 1520 / 1520 720 / 720 Balance 1610 / 1610 2220 / 2220 1520 / 1520 720 / 720 - Physical Exam Oriented: Normal Eyes: Normal Ear: Normal Nose: Normal Throat: Normal Respiratory: Normal Cardiovascular: Normal. negative: S3, Murmur, Edema : Normal Auscultation: Bowel Sounds: Normal Palpation: Normal Tenderness: Normal Skin: Other (large skin ulcer Lt foot 6x5cm medial posterior plantar aspect with granulomas with exposed bone. there is another new sinus tract medial to it .. on the Rt foot 4x4cm open ulcer and sinus tract as well involving the plantar foot .) Musculoskeletal: Right, Left, Leg, Foot, Tender, Deformity Psychiatric: Normal Mood Description: Calm Affect: Normal Speech Pattern: Clear, Appropriate - Laboratory and Diagnostics Result Diagrams: 04/27/18 05:25 04/27/18 05:25 Labs: 04/23/18 10:56 Foot - Left Gram Stain - Final 04/23/18 10:56 Foot - Left Wound Culture - Preliminary 04/23/18 11:16 Foot - Right - Final Enterococcus Faecalis Staphylococcus Epidermidis 04/23/18 11:16 Foot - Left - Final Enterococcus Faecalis Staphylococcus Epidermidis 04/21/18 11:29 Blood Blood Culture - Final 04/21/18 11:26 Blood Blood Culture - Final 04/21/18 13:23 Foot - Right Gram Stain - Final 04/21/18 13:23 Foot - Right Wound Culture - Final 04/21/18 13:23 Foot - Left Gram Stain - Final 04/21/18 13:23 Foot - Left Wound Culture - Final Laboratory WBC 4.0 X10^3/uL (3.6-10.0) 04/27/18 05:25 RBC 5.08 X10^6/uL (4.7-6.0) 04/27/18 05:25 Hgb 13.0 g/dL (13.5-18.0) L 04/27/18 05:25 Hct 40.3 % (42.0-54.0) L 04/27/18 05:25 MCV 79.3 fL (80.0-100.0) L 04/27/18 05:25 MCH 25.7 pg (27.0-34.0) L 04/27/18 05:25 MCHC 32.4 g/dL (33.0-35.0) L 04/27/18 05:25 RDW 19.2 % (11.6-16.5) H 04/27/18 05:25 Plt Count 258 X10^3/uL (150.0-450.0) 04/27/18 05:25 Plt Count Comment Decreased (ADEQUATE) 04/27/18 05:25 MPV 8.5 fL (7.4-11.0) 04/27/18 05:25 Neut % (Auto) 57.9 % (42.0-75.0) 04/27/18 05:25 Lymph % (Auto) 19.7 % (21.0-51.0) L 04/27/18 05:25 [place] % (Auto) 12.3 % (0.0-13.0) 04/27/18 05:25 Eos % (Auto) 9.3 % (0.9-2.9) H 04/27/18 05:25 Baso % (Auto) 0.8 % (0.2-1.0) 04/27/18 05:25 Neut # (Auto) 2.3 x10^3/uL (2.2-4.8) 04/27/18 05:25 Lymph # (Auto) 0.8 X10^3/uL (1.3-2.9) L 04/27/18 05:25 [place] # (Auto) 0.5 x10^3/uL (0.3-0.8) 04/27/18 05:25 Eos # (Auto) 0.4 x10^3/uL (0.0-0.2) H 04/27/18 05:25 Baso # (Auto) 0.0 X10^3/uL (0.0-0.1) 04/27/18 05:25 Absolute Nucleated RBC 0.1 /100WBC 04/27/18 05:25 Plt Morphology Comment Normal (NORMAL) 04/27/18 05:25 RBC Morphology Abnormal (NORMAL) 04/27/18 05:25 Hypochromasia Slight A 04/27/18 05:25 Anisocytosis Slight A 04/26/18 04:41 ESR 23 MM/HOUR (0-15) H 04/21/18 11:26 Sodium 139 mmol/L (136-145) 04/27/18 05:25 Corrected Sodium TNP 04/27/18 05:25 Potassium 3.7 mmol/L (3.5-5.1) 04/27/18 05:25 Chloride 102 mmol/L (98-107) 04/27/18 05:25 Carbon Dioxide 30.5 mmol/L (21-32) 04/27/18 05:25 BUN 13 mg/dL (7-18) 04/27/18 05:25 Creatinine 0.89 mg/dL (0.70-1.30) 04/27/18 05:25 Est GFR (MDRD) Af Amer > 60 (>60) 04/27/18 05:25 Est GFR (MDRD) Non-Af > 60 (>60) 04/27/18 05:25 Glucose 84 mg/dL (65-99) 04/27/18 05:25 Hemoglobin A1c 6.0 % 04/21/18 11:26 Calcium 8.9 mg/dL (8.5-10.1) 04/27/18 05:25 Corrected Calcium 9.5 mg/dL (8.5-10.1) 04/27/18 05:25 Magnesium 1.8 mg/dL (1.7-2.9) 04/25/18 04:40 Total Bilirubin 0.30 mg/dL (0.2-1.0) 04/27/18 05:25 AST 17 Units/L (15-37) 04/27/18 05:25 ALT 24 Units/L (12-78) 04/27/18 05:25 Alkaline Phosphatase 58 Units/L (46-116) 04/27/18 05:25 Creatine Kinase 54 Units/L (39-308) 04/21/18 18:50 CK-MB (CK-2) 1.0 ng/mL (0-4.0) 04/21/18 18:50 CK/CKMB % Calc 1.9 % (<4) 04/21/18 18:50 Troponin I < 0.02 ng/mL (0-1.5) 04/21/18 18:50 C-Reactive Protein 26.50 mg/L (0-3.0) H 04/21/18 11:26 Total Protein 6.9 g/dL (6.4-8.2) 04/27/18 05:25 Albumin 3.2 g/dL (3.4-5.0) L 04/27/18 05:25 Globulin 3.7 g/dL (2.5-4.5) 04/27/18 05:25 Albumin/Globulin Ratio 0.9 Ratio (1.1-2.1) L 04/27/18 05:25 Vancomycin Trough 13.4 ug/mL (15-20) L 04/25/18 20:01 - Plan (1) Osteomyelitis of left lower extremity Status: Acute Plan: VANCOMYCIN 1GM IV Q12H, WOUND CARE, CONTINUE TO MONITOR (2) Bilateral lower leg cellulitis Status: Acute Plan: VANCOMYCIN 1GM IV Q12H, WOUND CARE, CONTINUE TO MONITOR (3) Diabetes mellitus Status: Acute Qualifiers: Diabetes mellitus type: type 2 Diabetes mellitus vermin exterminator insulin use: with vermin exterminator use Diabetes mellitus complication status: with circulatory complication Diabetes mellitus complication detail: with other circulatory complications Qualified Code(s): E11.59 - Type 2 diabetes mellitus with other circulatory complications; Z79.4 - alf (current) use of insulin Plan: MONITOR OTBS (4) Charcot foot due to diabetes mellitus Status: Chronic
[2018-04-27 21:22] LABS: CREATININE 0.99 mg/dL (0.70-1.30); VANCOMYCIN,TROUGH 14.8 ug/mL (15-20)
[2018-04-28] MEDS: NORCO 5/325 MG TAB PO PRN ×3 (05:03→21:52)
[2018-04-28 06:07] LABS: BASOPHILS % (AUTO) 0.9 % (0.2-1.0); EOSINOPHILS # (AUTO) 0.4 x10^3/uL (0.0-0.2); EOSINOPHILS % (AUTO) 10.3 % (0.9-2.9); HEMATOCRIT 40.7 % (42.0-54.0); HEMOGLOBIN 13.1 g/dL (13.5-18.0); LYMPHOCYTES # (AUTO) 0.9 X10^3/uL (1.3-2.9); LYMPHOCYTES % (AUTO) 25.8 % (21.0-51.0); MEAN CORPUSCULAR HEMOGLOBIN 25.5 pg (27.0-34.0); MEAN CORPUSCULAR HGB CONC 32.1 g/dL (33.0-35.0); MEAN CORPUSCULAR VOLUME 79.6 fL (80.0-100.0); MEAN PLATELET VOLUME 8.4 fL (7.4-11.0); MONOCYTES # (AUTO) 0.4 x10^3/uL (0.3-0.8); MONOCYTES % (AUTO) 12.2 % (0.0-13.0); NEUTROPHILS # (AUTO) 1.8 x10^3/uL (2.2-4.8); NEUTROPHILS % (AUTO) 50.8 % (42.0-75.0); PLATELET COUNT 263 X10^3/uL (150.0-450.0); RED BLOOD COUNT 5.11 X10^6/uL (4.7-6.0); RED CELL DISTRIBUTION WIDTH 19.3 % (11.6-16.5); WHITE BLOOD COUNT 3.5 X10^3/uL (3.6-10.0)
[2018-04-28 06:27] LABS: ALANINE AMINOTRANSFERASE 23 Units/L (12-78); ALBUMIN 3.2 g/dL (3.4-5.0); ALKALINE PHOSPHATASE 62 Units/L (46-116); ASPARTATE AMINO TRANSFERASE 14 Units/L (15-37); BLOOD UREA NITROGEN 13 mg/dL (7-18); CALCIUM 9.2 mg/dL (8.5-10.1); CARBON DIOXIDE 28.7 mmol/L (21-32); CHLORIDE 104 mmol/L (98-107); COR CA(FOR HYPOALB) 9.8 mg/dL (8.5-10.1); SODIUM 139 mmol/L (136-145); TOTAL PROTEIN 6.9 g/dL (6.4-8.2); eGFR NON BLACK RACES > 60 (>60)
[2018-04-28 06:48] LABS: PLATELET MORPHOLOGY COMMENT NORMAL (NORMAL)
[2018-04-28 06:49] LABS: HYPOCHROMASIA SLIGHT
[2018-04-28] MEDS: LOVENOX INJ 30 MG SYR SC SCH ×2 (09:01→21:53)
[2018-04-28] MEDS: VANCOMYCIN HCL 1 GM VIAL 1 G in D5W 250 ML IV 250 ML IV SCH ×2 (09:03→21:53)
[2018-04-28] MEDS: XANAX PO PRN ×2 (09:03→21:52)
[2018-04-28] MEDS: PROVENTIL NEB TX 0.083% 2.5MG/ 3ML NEB SCH ×2 (09:38→20:56)
[2018-04-28] MEDS: RIFADIN CAP 300 MG PO SCH ×2 (11:24→21:52)
[2018-04-28] MEDS: WOUND CARE XX SCH ×2 (11:25→21:54)
[2018-04-28] MEDS: NS 1000 ML 1,000 ML IV SCH (13:53)
[2018-04-28] MEDS: MILK OF MAGNESIA PO PRN (21:52)
[2018-04-28] MEDS: COLACE CAP 100 MG PO PRN (21:52)
[2018-04-29] MEDS: NS 1000 ML 1,000 ML IV SCH ×2 (01:07→09:26)
[2018-04-29] MEDS: WOUND CARE XX SCH ×2 (01:13→10:40)
[2018-04-29] MEDS: NORCO 5/325 MG TAB PO PRN ×2 (04:07→10:42)
[2018-04-29 06:11] LABS: EOSINOPHILS # (AUTO) 0.3 x10^3/uL (0.0-0.2); EOSINOPHILS % (AUTO) 8.4 % (0.9-2.9); HEMATOCRIT 42.4 % (42.0-54.0); HEMOGLOBIN 13.8 g/dL (13.5-18.0); LYMPHOCYTES # (AUTO) 0.8 X10^3/uL (1.3-2.9); LYMPHOCYTES % (AUTO) 19.1 % (21.0-51.0); MEAN CORPUSCULAR HEMOGLOBIN 25.9 pg (27.0-34.0); MEAN CORPUSCULAR HGB CONC 32.6 g/dL (33.0-35.0); MEAN CORPUSCULAR VOLUME 79.6 fL (80.0-100.0); MEAN PLATELET VOLUME 8.3 fL (7.4-11.0); MONOCYTES # (AUTO) 0.5 x10^3/uL (0.3-0.8); MONOCYTES % (AUTO) 11.8 % (0.0-13.0); NEUTROPHILS # (AUTO) 2.4 x10^3/uL (2.2-4.8); NEUTROPHILS % (AUTO) 59.7 % (42.0-75.0); PLATELET COUNT 290 X10^3/uL (150.0-450.0); RED BLOOD COUNT 5.33 X10^6/uL (4.7-6.0)
[2018-04-29 06:20] LABS: HYPOCHROMASIA SLIGHT; PLATELET MORPHOLOGY COMMENT NORMAL (NORMAL)
[2018-04-29] MEDS: XANAX PO PRN (06:27)
[2018-04-29 06:28] LABS: ALANINE AMINOTRANSFERASE 25 Units/L (12-78); ALBUMIN 3.3 g/dL (3.4-5.0); ALKALINE PHOSPHATASE 63 Units/L (46-116); ASPARTATE AMINO TRANSFERASE 17 Units/L (15-37); BLOOD UREA NITROGEN 13 mg/dL (7-18); CALCIUM 9.2 mg/dL (8.5-10.1); CARBON DIOXIDE 28.3 mmol/L (21-32); CHLORIDE 103 mmol/L (98-107); COR CA(FOR HYPOALB) 9.8 mg/dL (8.5-10.1); CREATININE 0.89 mg/dL (0.70-1.30); SODIUM 138 mmol/L (136-145); TOTAL PROTEIN 7.1 g/dL (6.4-8.2); eGFR NON BLACK RACES > 60 (>60)
--- NOTE | 2018-04-29 07:59 | PCM.PROG ---
Progress Note - Progress Note for Day of Date of Exam: 04/28/18 - Subjective Subjective: IS BEING TREATED FOR BILATERAL LOWER EXTREMITY CELLULITIS AND LEFT LOWER EXTREMITY OSTEOMYELITIS. ULCERS TO BILATERAL FEET WERE DEBRIDED BY ON 04/23/18. BIOPSIES AND NEW CULTURES WERE TAKEN WHILE HE WAS IN THE OR. WOUND CULTURES THAT WERE OBTAINED ON ADMISSION REVEALED GROWTH OF ENTEROCOCCUS FAECALIS AND STAPHYLOCOCCUS EPIDERMIDIS. A THIRD BACTERIA GREW OUT TODAY. LEFT FOOT ALSO POSITIVE FOR STAPH AURICULARIS. TODAY, HE IS ALERT AND ORIENTED, LYING IN BED ON MORNING ROUNDS. HE DENIES COMPLAINTS THIS MORNING. HIS VITALS TODAY ARE 98.0-66-20-95%-125/70. HE IS HEMODYNAMICALLY STABLE TODAY. HE IS CURRENTLY RECEIVING VANCOMYCIN 1G IV Q12H. WOUND CARE IS BEING PERFORMED TWI CE A DAY. AFTER DISCHARGE, HE WILL GO HOME ON VANCOMYCIN 1500MG IV DAILY AND RIFAMPIN 300MG PO BID. WE WILL CONTINUE WITH IV ANTIBIOTICS AND CURRENT PLAN OF CARE TODAY. WE PLAN TO FOLLOW UP WITH AM LABS AND CONTINUE TO MONITOR. - Past Medical Family Social History Past Med/Fam/Surg Hx: No changes since H&P Allergies: Allergies No Known Drug Allergies Allergy (Verified 11/23/17 17:48) - Review of Systems ROS: No change since H&P - Vital Signs and I&O's Vital Signs: Temperature 98.1 F Pulse Rate [Left Brachial] 61 Pulse Rate [Right Brachial] 69 Pulse Rate 97 Respiratory Rate 20 Blood Pressure [Right Arm] 112/66 Blood Pressure [Left Arm] 106/67 Blood Pressure 125/75 O2 Sat by Pulse Oximetry 94 Intake and Output: Intake & Output 04/26/18 04/27/18 04/28/18 04/29/18 11:59 11:59 11:59 11:59 Intake Total 2220 / 2220 1520 / 1520 1850 / 1850 1874 Balance 2220 / 2220 1520 / 1520 1850 / 1850 1874 - Physical Exam Oriented: Normal Eyes: Normal Ear: Normal Nose: Normal Throat: Normal Respiratory: Normal Cardiovascular: Normal. negative: S3, Murmur, Edema : Normal Auscultation: Bowel Sounds: Normal Palpation: Normal Tenderness: Normal Skin: Other (large skin ulcer Lt foot 6x5cm medial posterior plantar aspect with granulomas with exposed bone. there is another new sinus tract medial to it .. on the Rt foot 4x4cm open ulcer and sinus tract as well involving the plantar foot .) Musculoskeletal: Right, Left, Leg, Foot, Tender, Deformity Psychiatric: Normal Mood Description: Calm Affect: Normal Speech Pattern: Clear, Appropriate - Laboratory and Diagnostics Result Diagrams: 04/29/18 05:46 04/29/18 05:46 Labs: 04/23/18 10:56 Foot - Left Gram Stain - Final 04/23/18 10:56 Foot - Left Wound Culture - Final Staph Auricularis 04/23/18 11:16 Foot - Right - Final Enterococcus Faecalis Staphylococcus Epidermidis 04/23/18 11:16 Foot - Left - Final Enterococcus Faecalis Staphylococcus Epidermidis 04/21/18 11:29 Blood Blood Culture - Final 04/21/18 11:26 Blood Blood Culture - Final 04/21/18 13:23 Foot - Right Gram Stain - Final 04/21/18 13:23 Foot - Right Wound Culture - Final 04/21/18 13:23 Foot - Left Gram Stain - Final 04/21/18 13:23 Foot - Left Wound Culture - Final Laboratory WBC 4.0 X10^3/uL (3.6-10.0) 04/29/18 05:46 RBC 5.33 X10^6/uL (4.7-6.0) 04/29/18 05:46 Hgb 13.8 g/dL (13.5-18.0) 04/29/18 05:46 Hct 42.4 % (42.0-54.0) 04/29/18 05:46 MCV 79.6 fL (80.0-100.0) L 04/29/18 05:46 MCH 25.9 pg (27.0-34.0) L 04/29/18 05:46 MCHC 32.6 g/dL (33.0-35.0) L 04/29/18 05:46 RDW 19.0 % (11.6-16.5) H 04/29/18 05:46 Plt Count 290 X10^3/uL (150.0-450.0) 04/29/18 05:46 Plt Count Comment Adequate (ADEQUATE) 04/29/18 05:46 MPV 8.3 fL (7.4-11.0) 04/29/18 05:46 Neut % (Auto) 59.7 % (42.0-75.0) 04/29/18 05:46 Lymph % (Auto) 19.1 % (21.0-51.0) L 04/29/18 05:46 [place] % (Auto) 11.8 % (0.0-13.0) 04/29/18 05:46 Eos % (Auto) 8.4 % (0.9-2.9) H 04/29/18 05:46 Baso % (Auto) 1.0 % (0.2-1.0) 04/29/18 05:46 Neut # (Auto) 2.4 x10^3/uL (2.2-4.8) 04/29/18 05:46 Lymph # (Auto) 0.8 X10^3/uL (1.3-2.9) L 04/29/18 05:46 [place] # (Auto) 0.5 x10^3/uL (0.3-0.8) 04/29/18 05:46 Eos # (Auto) 0.3 x10^3/uL (0.0-0.2) H 04/29/18 05:46 Baso # (Auto) 0.0 X10^3/uL (0.0-0.1) 04/29/18 05:46 Absolute Nucleated RBC 0.0 /100WBC 04/29/18 05:46 Plt Morphology Comment Normal (NORMAL) 04/29/18 05:46 RBC Morphology Abnormal (NORMAL) 04/29/18 05:46 Hypochromasia Slight A 04/29/18 05:46 Anisocytosis Slight A 04/26/18 04:41 ESR 23 MM/HOUR (0-15) H 04/21/18 11:26 Sodium 138 mmol/L (136-145) 04/29/18 05:46 Corrected Sodium TNP 04/29/18 05:46 Potassium 4.0 mmol/L (3.5-5.1) 04/29/18 05:46 Chloride 103 mmol/L (98-107) 04/29/18 05:46 Carbon Dioxide 28.3 mmol/L (21-32) 04/29/18 05:46 BUN 13 mg/dL (7-18) 04/29/18 05:46 Creatinine 0.89 mg/dL (0.70-1.30) 04/29/18 05:46 Est GFR (MDRD) Af Amer > 60 (>60) 04/29/18 05:46 Est GFR (MDRD) Non-Af > 60 (>60) 04/29/18 05:46 Glucose 86 mg/dL (65-99) 04/29/18 05:46 Hemoglobin A1c 6.0 % 04/21/18 11:26 Calcium 9.2 mg/dL (8.5-10.1) 04/29/18 05:46 Corrected Calcium 9.8 mg/dL (8.5-10.1) 04/29/18 05:46 Magnesium 1.8 mg/dL (1.7-2.9) 04/25/18 04:40 Total Bilirubin 0.90 mg/dL (0.2-1.0) 04/29/18 05:46 AST 17 Units/L (15-37) 04/29/18 05:46 ALT 25 Units/L (12-78) 04/29/18 05:46 Alkaline Phosphatase 63 Units/L (46-116) 04/29/18 05:46 Creatine Kinase 54 Units/L (39-308) 04/21/18 18:50 CK-MB (CK-2) 1.0 ng/mL (0-4.0) 04/21/18 18:50 CK/CKMB % Calc 1.9 % (<4) 04/21/18 18:50 Troponin I < 0.02 ng/mL (0-1.5) 04/21/18 18:50 C-Reactive Protein 26.50 mg/L (0-3.0) H 04/21/18 11:26 Total Protein 7.1 g/dL (6.4-8.2) 04/29/18 05:46 Albumin 3.3 g/dL (3.4-5.0) L 04/29/18 05:46 Globulin 3.8 g/dL (2.5-4.5) 04/29/18 05:46 Albumin/Globulin Ratio 0.9 Ratio (1.1-2.1) L 04/29/18 05:46 Vancomycin Trough 14.8 ug/mL (15-20) L 04/27/18 20:42 - Plan (1) Osteomyelitis of left lower extremity Status: Acute Plan: VANCOMYCIN 1GM IV Q12H, RIFAMPIN 300MG PO BID, WOUND CARE, CONTINUE TO MONITOR (2) Bilateral lower leg cellulitis Status: Acute Plan: VANCOMYCIN 1GM IV Q12H, RIFAMPIN 300MG PO BID, WOUND CARE, CONTINUE TO MONITOR (3) Diabetes mellitus Status: Acute Qualifiers: Diabetes mellitus type: type 2 Diabetes mellitus vermin exterminator insulin use: with vermin exterminator use Diabetes mellitus complication status: with circulatory complication Diabetes mellitus complication detail: with other circulatory complications Qualified Code(s): E11.59 - Type 2 diabetes mellitus with other circulatory complications; Z79.4 - long-term (current) use of insulin Plan: MONITOR OTBS (4) Charcot foot due to diabetes mellitus Status: Chronic
[2018-04-29 08:22] LABS: CREATININE 0.95 mg/dL (0.70-1.30); VANCOMYCIN,TROUGH 18.2 ug/mL (15-20)
[2018-04-29] MEDS: PROVENTIL NEB TX 0.083% 2.5MG/ 3ML NEB SCH (08:56)
[2018-04-29] MEDS: LOVENOX INJ 30 MG SYR SC SCH (09:26)
[2018-04-29] MEDS: VANCOMYCIN HCL 1 GM VIAL 1 G in D5W 250 ML IV 250 ML IV SCH (09:27)
[2018-04-29] MEDS: RIFADIN CAP 300 MG PO SCH (09:27)
[2018-04-29] MEDS ORDERED: HEPARIN SODIUM INJ 5000 UNITS IVP ONE ×2 (11:44→12:06)
[2018-04-29 12:03] VITALS: BP 126/65
== END 2018-04-29 12:15 | disposition home health service (06) | DRG 623 ==
LOC: MED/SURG 10:46
PROVIDERS: ADMIT Internal Medicine; ATTEND Internal Medicine
DX: K42.0 Umbilical hernia with obstruction, without gangrene; E55.9 Vitamin D deficiency, unspecified; B95.7 Other staphylococcus as the cause of diseases classified elsewhere; J44.1 Chronic obstructive pulmonary disease with (acute) exacerbation; E11.65 Type 2 diabetes mellitus with hyperglycemia; E11.621 Type 2 diabetes mellitus with foot ulcer; K21.9 Gastro-esophageal reflux disease without esophagitis; L03.116 Cellulitis of left lower limb; K44.9 Diaphragmatic hernia without obstruction or gangrene; R26.89 Other abnormalities of gait and mobility; M86.172 Other acute osteomyelitis, left ankle and foot; E11.69 Type 2 diabetes mellitus with other specified complication; B95.2 Enterococcus as the cause of diseases classified elsewhere; L97.426 Non-pressure chronic ulcer of left heel and midfoot with bone involvement without evidence of necrosis; Z79.4 Long term (current) use of insulin; M14.672 Charcot's joint, left ankle and foot; F41.1 Generalized anxiety disorder; D51.9 Vitamin B12 deficiency anemia, unspecified; E03.8 Other specified hypothyroidism; L97.416 Non-pressure chronic ulcer of right heel and midfoot with bone involvement without evidence of necrosis; E78.2 Mixed hyperlipidemia; M14.671 Charcot's joint, right ankle and foot
CPT/HCPCS: 36415; 71010; 71045; 73720; 80053; 80202; 82550; 82553; 82565; 83036; 83735; 84484; 85025; 85652; 86140; 87040; 87070; 87075; 87077; 87186; 87205; 93005; 93925; 94640; 97110; 97116; 97162; 97166; 97530; 97535; 99100; A4216; A4222; S0020; J1642; J1650; J2250; J2704; J3010; J3370; J3490; J7030; J7060; J7613

== ENCOUNTER 2021-04-30 16:33 | Inpatient (IN) ==
--- NOTE | 2021-04-30 17:07 | DR.ABDMALE ---
HPI Time seen Time Seen by Provider: 04/30/21 17:06 PCP Primary Care Physician: ADELINE Trevizo HPI comment HPI Comment: PATIENT IS 76YR OLD MALE IN ER WITH FEVER, DARK STOOL AND ANOREXIA TIMES ONE DAY. WORSE TODAY. HAVING ABDOMINAL PAIN, NO DYSURIA OR DIARRHEA. Complaint Chief Complaint Doctors Comments: FEVER, DARK STOOL AND ANOREXIA TIMES ONE DAY. Chief Complaint:: HE CAN'T EAT ANYTHING ,JUST LITTLE BITES HERE AND THERE. HE HAS A 99 FEVER. HE STARTED HAVING DARK BLACK LOOSE STOOLS THAT STARTED THURSDAY AFTER TAKING SEVERAL DOSES OF PEPTO BISMO. LAST BOWEL MOVEMENT WAS SCANT ON Thursday04/29/21. HE ALSO HAS TROUBLE EMPTYING BLADDER. Self Treatment fo Chief Complaint: PEPTO BISMO COVID-19 Coronavirus risk:travel/contact w/high risk person: No Has patient experienced Coronavirus symptoms: No Reviewed Nurses Notes Review: Yes Source History provided by:: patient Mode of arrival Mode of Arrival: Wheelchair Timing Onset of Chief Complaint: 04/27/21 Came on: Suddenly Duration Duration: Constant Duration: Days Location Location: Diffuse Severity Severity: Moderate Quality Quality: Sharp Context Onset: Suddenly History of: None Modifying factors Worsening Factors: Movement Associated signs and symptoms Associated Signs and Symptoms: Nausea and Melena PMH PMH Past Medical History: Yes Past Medical History: Anxiety, COPD and GERD Past Medical History Comment: HERNIA, SOFTBONES Past Surgical History: Yes Surgical History: Ortho Surgery and Other Family History History of Family Medical Conditions: Yes Family Medical History: Diabetes Mellitus and Cancer Social History Does patient currently use any type of tobacco product: No Have you used tobacco products in the last 12 months: No Type of Tobacco Use: None Does any household member use tobacco: No Alcohol Use: None Do you use any recreational Drugs:: No Lives With: Spouse Lives Where: Home Travel Risk Coronavirus risk:travel/contact w/high risk person: No Has patient experienced Coronavirus symptoms: No Infectious screening In the last 2 months have you had wt loss of >10#?: NO Have you had fever, night sweats or hemotysis?: No Have you traveled outside the country in the last 6 months?: No Isolation: Standard ROS Review of Systems Constitutional: See HPI, Fever and Loss of Appetite; negative Weakness and Fatigue Eyes: No Symptoms Reported and See HPI ENTM: No Symptoms Reported and See HPI; negative Nose Discharge and Nose Congestion Respiratoy: No Symptoms Reported and See HPI; negative Moist Cough, Short of Breath and Wheezing Cardiovascular: No Symptoms Reported and See HPI; negative Chest Pain Gastrointestinal/Abdominal: See HPI and Abdominal Pain Genitourinary: No Symptoms Reported and See HPI; negative Dysuria Neurological: No Symptoms Reported and See HPI; negative Headache, Weakness and Dizziness Musculoskeletal: No Symptoms Reported and See HPI; negative Back Pain Integumentary: No Symptoms Reported and See HPI; negative Rash and Juandice Hematologic/Lymphatic: No Symptoms Reported and See HPI; negative Easy Bruising Endocrine: No Symptoms Reported and See HPI; negative Increased Thirst and Increased Urine Psychiatric: No Symptoms Reported and See HPI All Other Systems: Reviewed and Negative PE Vital Signs Vital Signs: Temp Pulse Resp BP BP Pulse Ox 04/30/21 16:33 97.1 F L 112 H 20 103/70 94 L 10/20/19 09:35 112/68 General Limitations: No Limitations General Appearance: Alert and In No Apparent Distress Head Head Exam: Normal Inspection Eyes Eye exam: Normal Appearance; negative Scleral Icterus and Conjunctival Injection ENT ENT Exam: Normal Exam, Normal Oropharynx, Normal External Ear Exam and TM's Normal Bilaterally Neck Neck Exam: Normal Inspection and Trachea Midline; negative Tenderness Chest Chest Inspection: Normal Inspection and Symmetric Chest Wall Rise; negative Tenderness Respiratory Respiratory Exam: Normal Lung Sounds Bilat; negative Accessory Muscle Use, Chest Wall Tenderness and Respiratory Distress Respiratory Exam: Bilateral: Clear to Auscultation Cardiovascular Cardiovascular Exam: Regular Rate, Normal Rhythm and Normal Heart Sounds; negative Systolic Murmur and Diastolic Murmur Abdominal Exam Abdominal Exam: Normal Bowel Sounds, Soft and Tenderness Abdominal Tenderness: Diffuse and Moderate Rectal Rectal Exam: Deferred Back Back Exam: Normal Inspection; negative (R) CVA Tenderness and (L) CVA Tenderness Extremeties Extremities Exam: Normal Inspection and Normal Capillary Refill Exam: Male: Deferred Neurologic Neurological Exam: Alert and Oriented X3; negative Motor Sensory Deficit Psychiatric Psychiatric Exam: Normal Affect and Normal Mood Skin Skin Exam: Warm, Dry, Intact and Normal Color MDM Differential Diagnosis Differential Diagnosis: Bowel Obstruction, Constipation, Diverticular disease, Gastritus/PUD, Inflammatory BD, Pancreatitis, Urinary tract infection and Urolithiasis COURSE Treatment Treatment: SEE ORDERS DONE WHILE PATIENT IN ER. NS 1L IV AND ZOFRAN 4MG IV GIVEN PATIENT IN ER. LABS AND XRAY REPORT DISCUSSED WITH PATIENT. HE WILL BE ADMITTED TO HOSPITAL FOR FURTHER MANAGEMENT. Education/Counseling Education/Counseling: Patient Educated On: Diagnosis ROR Labs Reviewed Laboratory Results Reviewed?: Yes Result Diagrams: 05/09/21 05:00 05/09/21 05:00 Laboratory: WBC 9.6 X10^3/uL (3.6-10.0) 04/30/21 17:37 RBC 4.85 X10^6/uL (4.7-6.0) 04/30/21 17:37 Hgb 14.6 g/dL (13.5-18.0) 04/30/21 17:37 Hct 44.0 % (42.0-54.0) 04/30/21 17:37 MCV 90.6 fL (80.0-100.0) 04/30/21 17:37 MCH 30.1 pg (27.0-34.0) 04/30/21 17:37 MCHC 33.2 g/dL (33.0-35.0) 04/30/21 17:37 RDW 14.3 % (11.6-16.5) 04/30/21 17:37 Plt Count 193 X10^3/uL (150.0-450.0) 04/30/21 17:37 MPV 8.5 fL (7.4-11.0) 04/30/21 17:37 Neut % (Auto) 78.8 % (42.0-75.0) H 04/30/21 17:37 Lymph % (Auto) 10.3 % (21.0-51.0) L 04/30/21 17:37 [place] % (Auto) 10.0 % (0.0-13.0) 04/30/21 17:37 Eos % (Auto) 0.6 % (0.9-2.9) L 04/30/21 17:37 Baso % (Auto) 0.3 % (0.2-1.0) 04/30/21 17:37 Neut # (Auto) 7.6 x10^3/uL (2.2-4.8) H 04/30/21 17:37 Lymph # (Auto) 1.0 X10^3/uL (1.3-2.9) L 04/30/21 17:37 [place] # (Auto) 1.0 x10^3/uL (0.3-0.8) H 04/30/21 17:37 Eos # (Auto) 0.1 x10^3/uL (0.0-0.2) 04/30/21 17:37 Baso # (Auto) 0.0 X10^3/uL (0.0-0.1) 04/30/21 17:37 Absolute Nucleated RBC 0.1 /100WBC 04/30/21 17:37 Sodium 141 mmol/L (136-145) 04/30/21 17:37 Corrected Sodium 141 mmol/L (136-145) 04/30/21 17:37 Potassium 4.0 mmol/L (3.5-5.1) 04/30/21 17:37 Chloride 105 mmol/L (98-107) 04/30/21 17:37 Carbon Dioxide 27.1 mmol/L (21-32) 04/30/21 17:37 BUN 14 mg/dL (7-18) 04/30/21 17:37 Creatinine 0.97 mg/dL (0.70-1.30) 04/30/21 17:37 Est GFR (MDRD) Af Amer > 60 (>60) 04/30/21 17:37 Est GFR (MDRD) Non-Af > 60 (>60) 04/30/21 17:37 Glucose 111 mg/dL (65-99) H 04/30/21 17:37 Calcium 8.8 mg/dL (8.5-10.1) 04/30/21 17:37 Corrected Calcium TNP 04/30/21 17:37 Total Bilirubin 0.80 mg/dL (0.2-1.0) 04/30/21 17:37 AST 8 Units/L (15-37) L 04/30/21 17:37 ALT 14 Units/L (12-78) 04/30/21 17:37 Alkaline Phosphatase 51 Units/L (46-116) 04/30/21 17:37 Total Protein 6.3 g/dL (6.4-8.2) L 04/30/21 17:37 Albumin 3.4 g/dL (3.4-5.0) 04/30/21 17:37 Globulin 2.9 g/dL (2.5-4.5) 04/30/21 17:37 Albumin/Globulin Ratio 1.2 Ratio (1.1-2.1) 04/30/21 17:37 Amylase 13 Units/L (25-115) L 04/30/21 17:37 Lipase 27 Units/L (73-393) L 04/30/21 17:37 SARS-CoV-2 (PCR) Negative (NEGATIVE) 04/30/21 21:13 Influenza Type A (PCR) Negative (NEGATIVE) 04/30/21 21:13 Influenza Type B (PCR) Negative (NEGATIVE) 04/30/21 21:13 RSV (PCR) Negative (NEGATIVE) 04/30/21 21:13 XRAY XRAY Interpreted by: Radiologist (REPORT NOTED.) and Self Opioid Opioid Risk Tool Age (Sylvain box if 16-45): No History of Preadolescent Sexual Abuse: No Total: 0 Total Score Risk Category: Low Risk Copyright: Gaetano DANIELS predicting aberrant behaviors Diagnosis Discharge Problem: Abdominal pain Qualifiers: Abdominal location: generalized Qualified Code(s): R10.84 - Generalized abdominal pain Bowel obstruction Qualifiers: Intestinal obstruction type: unspecified Intestinal obstruction extent: unspecified extent Qualified Code(s): K56.609 - Unspecified intestinal obstruction, unspecified as to partial versus complete obstruction Instructions Instructions: Bowel Obstruction, Wezj-py-Qchk How to Use an Incentive Spirometer Soft-Food Eating Plan Abdominal Pain, Adult, Nywu-lp-Vbke Clear Liquid Diet, Adult, Ohhi-po-Zdbj Nausea and Vomiting, Adult, Swfs-ba-Zvxf Small Bowel Obstruction Blood Glucose Monitoring, Adult Diabetes Mellitus and Nutrition Forms: Precautions for COVID19 [facility] Social Distancing
[2021-04-30] MEDS ORDERED: ZOFRAN INJ 4 MG VIAL IVP ONE (17:21)
[2021-04-30] MEDS ORDERED: NS 1,000 ML IV 1,000 ML ONE (17:32)
[2021-04-30] MEDS ORDERED: ZOFRAN INJ 4 MG VIAL ONE (17:32)
[2021-04-30] MEDS: NS 1,000 ML IV 1,000 ML IV SCH (17:40)
[2021-04-30 17:48] LABS: BASOPHILS % (AUTO) 0.3 % (0.2-1.0); EOSINOPHILS # (AUTO) 0.1 x10^3/uL (0.0-0.2); EOSINOPHILS % (AUTO) 0.6 % (0.9-2.9); HEMOGLOBIN 14.6 g/dL (13.5-18.0); LYMPHOCYTES % (AUTO) 10.3 % (21.0-51.0); MEAN CORPUSCULAR HEMOGLOBIN 30.1 pg (27.0-34.0); MEAN CORPUSCULAR HGB CONC 33.2 g/dL (33.0-35.0); MEAN CORPUSCULAR VOLUME 90.6 fL (80.0-100.0); MEAN PLATELET VOLUME 8.5 fL (7.4-11.0); NEUTROPHILS # (AUTO) 7.6 x10^3/uL (2.2-4.8); NEUTROPHILS % (AUTO) 78.8 % (42.0-75.0); RED BLOOD COUNT 4.85 X10^6/uL (4.7-6.0); RED CELL DISTRIBUTION WIDTH 14.3 % (11.6-16.5); WHITE BLOOD COUNT 9.6 X10^3/uL (3.6-10.0)
[2021-04-30 18:06] LABS: ALANINE AMINOTRANSFERASE 14 Units/L (12-78); ALBUMIN 3.4 g/dL (3.4-5.0); ALKALINE PHOSPHATASE 51 Units/L (46-116); AMYLASE 13 Units/L (25-115); ASPARTATE AMINO TRANSFERASE 8 Units/L (15-37); BLOOD UREA NITROGEN 14 mg/dL (7-18); CALCIUM 8.8 mg/dL (8.5-10.1); CARBON DIOXIDE 27.1 mmol/L (21-32); CHLORIDE 105 mmol/L (98-107); COR NA(FOR HYPERGLY) 141 mmol/L (136-145); CREATININE 0.97 mg/dL (0.70-1.30); LIPASE 27 Units/L (73-393); SODIUM 141 mmol/L (136-145); TOTAL PROTEIN 6.3 g/dL (6.4-8.2); eGFR NON BLACK RACES > 60 (>60)
--- NOTE | 2021-04-30 18:25 | RAD ---
HISTORYCAN'T EAT ANYTHING,JUST LITTLE BITES HERE AND THERE. HE HAS A 99 FEVER. STARTED HAVING DARK BLACK LOOSE STOOLS THAT STARTED THURSDAY AFTER TAKING PEPTO BISMO. Relevant Clinical InformationSTUDYACUTE ABDOMEN SERIESCOMPARISONFINDINGSRight subclavian rigoberto catheter in good position. Heart size is normal. Pulmonary blood flow is congested. Abnormal interstitial prominence possibly due to edema. There appears to be a trace pleural effusion. Moderate to large hiatal hernia. Gas is distension of bowel loops in the upper abdomen which appear to be small bowel. Paucity of gas distally. No free air.IMPRESSION1. [Question pulmonary edema and trace right effusion.]2. [Abnormal dilation of small bowel in the upper abdomen worrisome for small bowel obstruction.]Electronically signed by: Martín Garzon (Apr 30, 2021 18:24:17)
[2021-04-30 23:28] LABS: BILIRUBIN,URINE NEGATIVE (NEGATIVE); BLOOD/HEMOGLOBIN,URINE 2+ (NEGATIVE); GLUCOSE, URINE NEGATIVE (NEGATIVE); KETONES,URINE 4+ (NEGATIVE); LEUKOCYTE ESTERASE ,URINE NEGATIVE (NEGATIVE); NITRITES,URINE NEGATIVE (NEGATIVE); PROTEIN,URINE 1+ (NEGATIVE); UROBILINOGEN,URINE NORMAL (NORMAL)
[2021-04-30 23:30] LABS: APPEARANCE,URINE CLEAR (CLEAR)
[2021-04-30 23:37] LABS: BACTERIA,URINE TRACE /HPF (NEGATIVE); COLOR,URINE AMBER (YELLOW); RBC,URINE NONE SEEN /HPF (0-3); SQUAMOUS EPITHELIAL CELL,UR NEGATIVE /HPF (NEGATIVE)
[2021-05-01] MEDS ORDERED: NS 1,000 ML IV 1,000 ML ONE ×2 (01:02→09:10)
[2021-05-01] MEDS: NS 1,000 ML IV 1,000 ML IV SCH ×3 (01:27→18:35)
[2021-05-01 05:24] LABS: BASOPHILS # (AUTO) 0.1 X10^3/uL (0.0-0.1); BASOPHILS % (AUTO) 0.9 % (0.2-1.0); EOSINOPHILS # (AUTO) 0.1 x10^3/uL (0.0-0.2); EOSINOPHILS % (AUTO) 1.4 % (0.9-2.9); HEMATOCRIT 43.5 % (42.0-54.0); HEMOGLOBIN 14.5 g/dL (13.5-18.0); LYMPHOCYTES # (AUTO) 0.4 X10^3/uL (1.3-2.9); LYMPHOCYTES % (AUTO) 4.2 % (21.0-51.0); MEAN CORPUSCULAR HEMOGLOBIN 30.5 pg (27.0-34.0); MEAN CORPUSCULAR HGB CONC 33.5 g/dL (33.0-35.0); MEAN CORPUSCULAR VOLUME 91.2 fL (80.0-100.0); MEAN PLATELET VOLUME 9.6 fL (7.4-11.0); MONOCYTES % (AUTO) 9.9 % (0.0-13.0); NEUTROPHILS # (AUTO) 8.1 x10^3/uL (2.2-4.8); NEUTROPHILS % (AUTO) 83.6 % (42.0-75.0); RED BLOOD COUNT 4.77 X10^6/uL (4.7-6.0); RED CELL DISTRIBUTION WIDTH 14.6 % (11.6-16.5); WHITE BLOOD COUNT 9.7 X10^3/uL (3.6-10.0)
[2021-05-01 05:46] LABS: ALANINE AMINOTRANSFERASE 12 Units/L (12-78); ALBUMIN 3.3 g/dL (3.4-5.0); ALKALINE PHOSPHATASE 50 Units/L (46-116); AMYLASE 11 Units/L (25-115); ASPARTATE AMINO TRANSFERASE 20 Units/L (15-37); BLOOD UREA NITROGEN 15 mg/dL (7-18); CALCIUM 8.4 mg/dL (8.5-10.1); CARBON DIOXIDE 25.1 mmol/L (21-32); CHLORIDE 105 mmol/L (98-107); CREATININE 0.88 mg/dL (0.70-1.30); LIPASE 27 Units/L (73-393); SODIUM 141 mmol/L (136-145); TOTAL PROTEIN 6.2 g/dL (6.4-8.2); eGFR NON BLACK RACES > 60 (>60)
[2021-05-01 06:33] LABS: PLATELET MORPHOLOGY COMMENT NORMAL (NORMAL)
[2021-05-01] MEDS ORDERED: DILAUDID INJ IVP PRN (07:46)
[2021-05-01] MEDS ORDERED: TORADOL 30 MG VIAL ONE (07:49)
[2021-05-01] MEDS: TORADOL 30 MG VIAL IVP PRN (07:52)
[2021-05-01] MEDS ORDERED: PROVENTIL NEB TX 0.083% 2.5MG/ 3ML ONE (08:00)
[2021-05-01] MEDS: PROVENTIL NEB TX 0.083% 2.5MG/ 3ML NEB SCH ×2 (08:03→21:02)
--- NOTE | 2021-05-01 08:24 | RAD ---
HISTORYAbdominal pain, small-bowel [id number]/22/2022 .br.br.br.br the upper abdomen with a small amount of gas distally in more normal size small bowel. Findings are suspicious for at least a partial small bowel obstruction and are unchanged from the prior examination. No abnormal masses or abnormal calcifications are identified. Regional skeleton is intact.IMPRESSIONFindings suggestive of small bowel obstructionElectronically signed by: TYRONE ROSARIO (May 01, 2021 08:22:58)
[2021-05-01] MEDS ORDERED: PROVENTIL NEB TX 0.083% 2.5MG/ 3ML NEB SCH (09:00)
[2021-05-01] MEDS ORDERED: FORTAZ or TAZICEF VIAL INJ 1 G in NS 100 ML IV + SPIKE MINIBAG* 100 ML IV SCH (10:00)
--- NOTE | 2021-05-01 10:09 | DR.H&P ---
H&P - History & Physical for Day of: H&P Date: 04/30/21 - Chief Complaint Chief Complaint: ABDOMINAL PAIN, NAUSEA, VOMITING - History of Present Illness History of Present Illness: IS A 75 YEAR OLD PATIENT OF OURS. HE PRESENTED TO THE ER WITH COMPLAINTS OF NAUSEA, VOMITING, AND ABDOMINAL PAIN. HE REPORTS THAT SYMPTOMS STARTED ON 04/28/21 AND HAVE PROGRESSIVELY GOTTEN WORSE. HE ADMITS TO TAKING MULTIPLE DOSES OF PEPTO BISMOL WITHOUT IMPROVEMENT. HE REPORTS HAVING SEVERAL EPISODES OF DARK LOOSE STOOLS. HE LAST HAD A SCANT BOWEL MOVEMENT SINCE 04/29/21. HE DESCRIBES ABDOMINAL PAIN CRAMPING, DIFFUSE, AND RATES IT A 6/10. HIS PMH INCLUDES ANXIETY, COPD, GERD, AND HERNIA. ON ARRIVAL, HIS VITALS WERE 97.1-112-20-94%-103/70. LABS WERE OBTAINED. WBC 9.6, HGB 14.6, HCT 44.0, SODIUM 141, POTASSIUM 4.0, BUN 14, CREATININE 0.97, GLUCOSE 111, AST 8, ALT 14, ALK PHOS 51, TOTAL PROTEIN 6.3, ALBUMIN 3.4, AMYLASE 13, LIPASE 27. AN ABDOMINAL XRAY WAS OBTAINED AND REVEALED: 1. Question pulmonary edema and trace right effusion. 2. Abnormal dilation of small bowel in the upper abdomen worrisome for small bowel obstruction. AN NG WAS ORDERED TO BE PLACED IN THE ER, HOWEVER, PATIENT REFUSED. HE WAS GIVEN ZOFRAN 4MG IV X 1 DOSE. HE ADMITTED TO SLIGHT IMPROVEMENT IN NAUSEA. PATIENT WAS ADMITTED TO THE HOSPITAL FOR FURTHER EVALUATION AND TREATMENT OF SMALL BOWEL OBSTRUCTION, ABDOMINAL PAIN. HE WAS STARTED ON NORMAL SALINE AT 125 ML/HR, LEVAQUIN 500MG IV DAILY, FORTAZ 1G IV Q8H, TORADOL 30MG IV Q6H PRN, DILAUDID 1MG IV Q4H PRN, AND ALBUTEROL NEB TX BID. PATIENT SHOULD REMAIN NPO. OTHERWISE, WE WILL FOLLOW UP WITH AM LABS AND CONTINUE TO MONITOR. TIME SPENT ON CLINICAL ASSESSMENT, REVIEWING LABS AND IMAGING, DECISION MAKING, AND DOCUMENTATION GREATER THAN 75 MINUTES. - Past Medical History Past Medical History: Anxiety, COPD, GERD Additional Medical History: CHARCOT FOOT - Past Surgical History Surgical History: Ortho Surgery, Other - Family History Family Medical History: Diabetes Mellitus, Cancer - Social History Does patient currently use any type of tobacco product: No Have you used tobacco products in the last 12 months: No Type of Tobacco Use: None Does any household member use tobacco: No Alcohol Use: None - Medications Home Medications: No Known Drug Allergies Allergy (Verified 04/30/21 16:33) CONTINUE taking the following medications lorazepam 0.5 mg PO Q8H 04/30/21 [History] magnesium hydroxide [Milk of Magnesia] 90 ml PO Q OTHER DAY 04/30/21 [History] polyethylene glycol 3350 [Miralax] 17 g PO Q OTHER DAY 04/30/21 [History] - Review of Systems Constitutional: Weakness Eyes: No Symptoms Reported ENT: No Symptoms Reported Respiratory: No Symptoms Reported Cardiovascular: No Symptoms Reported Gastrointestinal: See HPI, Nausea, Vomiting, Abdominal Pain Genitourinary: No Symptoms Reported Musculoskeletal: No Symptoms Reported Skin: No Symptoms Reported Neurological: Weakness - Physical Exam Vital Signs: Temperature 99.7 F Pulse Rate [Left Brachial] 102 Pulse Rate 101 Respiratory Rate 18 Blood Pressure [Right Arm] 118/74 Blood Pressure 103/70 O2 Sat by Pulse Oximetry 95 Oriented: Normal Eyes: Normal Ear: Normal Nose: Normal Throat: Normal Respiratory: Diminished Throughout Cardiovascular: Tachycardia : Normal Auscultation: Bowel Sounds: Decreased Palpation: Normal Tenderness: Diffuse, Moderate Skin: Normal Musculoskeletal: Normal Psychiatric: Normal Mood Description: Calm Affect: Normal Speech Pattern: Clear - Assessment/Plan (1) Small bowel obstruction Status: Acute Plan: ADMIT, BOWEL REST, NORMAL SALINE AT 125 ML/HR, LEVAQUIN 500MG IV DAILY, FORTAZ 1G IV Q8H, TORADOL 30MG IV Q6H PRN, DILAUDID 1MG IV Q4H PRN, AND ALBUTEROL NEB TX BID. (2) Nausea and vomiting Qualifiers: Vomiting type: unspecified Qualified Code(s): R11.2 - Nausea with vomiting, unspecified Status: Acute (3) Abdominal pain Qualifiers: Abdominal location: generalized Qualified Code(s): R10.84 - Generalized abdominal pain Status: Chronic - Allergies Allergies/Adverse Reactions: Allergies Allergy/AdvReac Type Severity Reaction Status Date / Time No Known Drug Allergies Allergy Verified 04/30/21 16:33
[2021-05-01] MEDS ORDERED: LEVAQUIN PREMIX IV 500 MG 500 MG/100 ML BAG IV ONE (10:32)
[2021-05-01] MEDS ORDERED: LOVENOX INJ 40 MG SYR SC ONE (10:32)
[2021-05-01] MEDS: LEVAQUIN PREMIX IV 500 MG 500 MG/100 ML BAG IV SCH (10:38)
[2021-05-01] MEDS: LOVENOX INJ 40 MG SYR SC SCH (10:38)
[2021-05-01] MEDS: FORTAZ or TAZICEF VIAL INJ 1 G in NS 100 ML IV 100 ML IV SCH ×2 (13:56→21:17)
[2021-05-02] MEDS: ZOFRAN INJ 4 MG VIAL IVP PRN ×2 (00:10→06:44)
[2021-05-02] MEDS: NS 1,000 ML IV 1,000 ML IV SCH ×4 (02:00→18:26)
--- NOTE | 2021-05-02 05:36 | RAD ---
HISTORYABD PAIN, SBO Relevant Clinical InformationSTUDYKUBCOMPARISONNone br.br.br dilated loops of small bowel proximally. No pathological soft tissue mass or calcification can be observed. The bony structures are grossly intact.IMPRESSIONA few mildly dilated loops of small bowel proximally. Findings may represent partial or early obstruction versus localized ileus. Follow-up radiographs may be helpful in further evaluation.Electronically signed by: Javier Lamar (May 02, 2021 05:34:40)
[2021-05-02] MEDS: FORTAZ or TAZICEF VIAL INJ 1 G in NS 100 ML IV 100 ML IV SCH ×3 (05:40→21:26)
[2021-05-02 06:14] LABS: BASOPHILS % (AUTO) 0.3 % (0.2-1.0); EOSINOPHILS % (AUTO) 0.3 % (0.9-2.9); HEMATOCRIT 40.3 % (42.0-54.0); HEMOGLOBIN 13.5 g/dL (13.5-18.0); LYMPHOCYTES # (AUTO) 0.9 X10^3/uL (1.3-2.9); LYMPHOCYTES % (AUTO) 10.5 % (21.0-51.0); MEAN CORPUSCULAR HEMOGLOBIN 30.4 pg (27.0-34.0); MEAN CORPUSCULAR HGB CONC 33.5 g/dL (33.0-35.0); MEAN CORPUSCULAR VOLUME 90.8 fL (80.0-100.0); MEAN PLATELET VOLUME 9.4 fL (7.4-11.0); MONOCYTES # (AUTO) 0.8 x10^3/uL (0.3-0.8); MONOCYTES % (AUTO) 9.6 % (0.0-13.0); NEUTROPHILS # (AUTO) 6.7 x10^3/uL (2.2-4.8); NEUTROPHILS % (AUTO) 79.3 % (42.0-75.0); RED BLOOD COUNT 4.44 X10^6/uL (4.7-6.0); RED CELL DISTRIBUTION WIDTH 14.3 % (11.6-16.5); WHITE BLOOD COUNT 8.5 X10^3/uL (3.6-10.0)
[2021-05-02 06:15] LABS: ALANINE AMINOTRANSFERASE 12 Units/L (12-78); ALBUMIN 2.9 g/dL (3.4-5.0); ALKALINE PHOSPHATASE 42 Units/L (46-116); ASPARTATE AMINO TRANSFERASE 14 Units/L (15-37); BLOOD UREA NITROGEN 20 mg/dL (7-18); CALCIUM 8.1 mg/dL (8.5-10.1); CARBON DIOXIDE 22.9 mmol/L (21-32); CHLORIDE 109 mmol/L (98-107); CREATININE 0.86 mg/dL (0.70-1.30); SODIUM 143 mmol/L (136-145); TOTAL PROTEIN 5.6 g/dL (6.4-8.2); eGFR NON BLACK RACES > 60 (>60)
[2021-05-02] MEDS: LOVENOX INJ 40 MG SYR SC SCH (08:56)
[2021-05-02] MEDS: LEVAQUIN PREMIX IV 500 MG 500 MG/100 ML BAG IV SCH (08:56)
[2021-05-02] MEDS: PROVENTIL NEB TX 0.083% 2.5MG/ 3ML NEB SCH ×2 (08:58→20:24)
[2021-05-02] MEDS ORDERED: NEOSPORIN OINT ONE (10:34)
--- NOTE | 2021-05-02 10:41 | PCM.PROG ---
Progress Note - Progress Note for Day of Date of Exam: 05/02/21 - Subjective Subjective: WAS ADMITTED FOR TREATMENT OF SMALL BOWEL OBSTRUCTION, N/V, AND ABDOMINAL PAIN. TODAY, HE IS ALERT AND ORIETNED, LYING IN BED ON MORNING ROUNDS. HE CONTINUES WITH COMPLAINTS OF DIFFUSE ABDOMINAL PAIN AT TIMES, WELL NAUSEA. HE ADMITS TO ONLY SLIGHT IMPROVEMENT IN PAIN SINCE ADMISSION. ON EXAMINATION, HEART IS REGULAR IN RATE AND RHYTHM. BILATERAL LUNGS NOTED WITH DIMINISHED LUNG SOUNDS THROUGHOUT. ABDOMEN IS ROUND, SOFT, AND NOTED WITH DIFFUSE TENDERNESS TO PALPATION. HIS VITALS THIS MORNING ARE: 98.3-70-24-92%-147/79. LABS WERE OBTAINED. ABNORMAL LAB VALUES INCLUDE THE FOLL OWING: RBC 4.44, HCT 40.3, CHLORIDE 109, BUN 20, CALCIUM 8.1, AST 14, ALK PHOS 42, TOTAL PROTEIN 5.6, ALBUMIN 2.9. KUB WAS REPEATED THIS MORNING AND REVEALED: A few mildly dilated loops of small bowel proximally. Findings may represent partial or early obstruction versus localized ileus. HE IS CURRENTLY RECEIVING NORMAL SALINE AT 125 ML/HR, LEVAQUIN 500MG IV DAILY, FORTAZ 1G IV Q8H, TORADOL 30MG IV Q6H PRN, DILAUDID 1MG IV Q4H PRN, AND ALBUTEROL NEB TX BID. WE WILL ADD SOLU-MEDROL 80MG IV Q8H, PROTONIX 40MG IV BID, AND RESUME HIS PERCOCET, FLOMAX, COLACE, AND FLONASE TODAY. PATIENT MAY HAVE ORAL MEDICATIONS WITH ONLY A SMALL SIP OF WATER. OTHERWISE, WE PLAN TO FOLLOW UP WITH AM LABS AND KUB AND CONTINUE TO MONITOR. TIME SPENT ON CLINICAL ASSESSMENT, REVIEWING LABS AND IMAGING, DECISION MAKING, AND DOCUMENTATION GREATER THAN 45 MINUTES. - Past Medical Family Social History Past Med/Fam/Surg Hx: No changes since H&P Allergies: Allergies No Known Drug Allergies Allergy (Verified 04/30/21 16:33) - Review of Systems ROS: No change since H&P - Vital Signs and I&O's Vital Signs: Temperature 98.3 F Pulse Rate [Left Brachial] 102 Pulse Rate 75 Respiratory Rate 24 Blood Pressure [Right Arm] 118/74 Blood Pressure 147/79 O2 Sat by Pulse Oximetry 94 Intake and Output: Intake & Output 04/29/21 04/30/21 05/01/21 05/02/21 11:59 11:59 11:59 11:59 Intake Total 758 / 758 2100 / 2100 Output Total 200 / 200 745 / 745 Balance 558 / 558 1355 / 1355 - Physical Exam Oriented: Normal Eyes: Normal Ear: Normal Nose: Normal Throat: Normal Respiratory: Generalized, Diminished Cardiovascular: Normal : Normal Auscultation: Bowel Sounds: Decreased Palpation: Normal Tenderness: Diffuse, Mild Skin: Normal Musculoskeletal: Normal Psychiatric: Normal Mood Description: Calm Affect: Normal Speech Pattern: Clear, Appropriate - Laboratory and Diagnostics Result Diagrams: 05/02/21 05:00 05/02/21 05:00 Labs: Laboratory WBC 8.5 X10^3/uL (3.6-10.0) 05/02/21 05:00 RBC 4.44 X10^6/uL (4.7-6.0) L 05/02/21 05:00 Hgb 13.5 g/dL (13.5-18.0) 05/02/21 05:00 Hct 40.3 % (42.0-54.0) L 05/02/21 05:00 MCV 90.8 fL (80.0-100.0) 05/02/21 05:00 MCH 30.4 pg (27.0-34.0) 05/02/21 05:00 MCHC 33.5 g/dL (33.0-35.0) 05/02/21 05:00 RDW 14.3 % (11.6-16.5) 05/02/21 05:00 Plt Count 163 X10^3/uL (150.0-450.0) 05/02/21 05:00 Plt Count Comment Adequate (ADEQUATE) 05/01/21 03:51 MPV 9.4 fL (7.4-11.0) 05/02/21 05:00 Neut % (Auto) 79.3 % (42.0-75.0) H 05/02/21 05:00 Lymph % (Auto) 10.5 % (21.0-51.0) L 05/02/21 05:00 [place] % (Auto) 9.6 % (0.0-13.0) 05/02/21 05:00 Eos % (Auto) 0.3 % (0.9-2.9) L 05/02/21 05:00 Baso % (Auto) 0.3 % (0.2-1.0) 05/02/21 05:00 Neut # (Auto) 6.7 x10^3/uL (2.2-4.8) H 05/02/21 05:00 Lymph # (Auto) 0.9 X10^3/uL (1.3-2.9) L 05/02/21 05:00 [place] # (Auto) 0.8 x10^3/uL (0.3-0.8) 05/02/21 05:00 Eos # (Auto) 0.0 x10^3/uL (0.0-0.2) 05/02/21 05:00 Baso # (Auto) 0.0 X10^3/uL (0.0-0.1) 05/02/21 05:00 Absolute Nucleated RBC 0.0 /100WBC 05/02/21 05:00 Total Counted 100 05/01/21 03:51 Neutrophils % (Manual) 79 % (39-76) H 05/01/21 03:51 Lymphocytes % (Manual) 14 % (13-43) 05/01/21 03:51 Monocytes % (Manual) 7 % (4-9) 05/01/21 03:51 Plt Morphology Comment Normal (NORMAL) 05/01/21 03:51 RBC Morphology Normal (NORMAL) 05/01/21 03:51 Sodium 143 mmol/L (136-145) 05/02/21 05:00 Corrected Sodium TNP 05/02/21 05:00 Potassium 4.0 mmol/L (3.5-5.1) 05/02/21 05:00 Chloride 109 mmol/L (98-107) H 05/02/21 05:00 Carbon Dioxide 22.9 mmol/L (21-32) 05/02/21 05:00 BUN 20 mg/dL (7-18) H 05/02/21 05:00 Creatinine 0.86 mg/dL (0.70-1.30) 05/02/21 05:00 Est GFR (MDRD) Af Amer > 60 (>60) 05/02/21 05:00 Est GFR (MDRD) Non-Af > 60 (>60) 05/02/21 05:00 Glucose 96 mg/dL (65-99) 05/02/21 05:00 Calcium 8.1 mg/dL (8.5-10.1) L 05/02/21 05:00 Corrected Calcium 9.0 mg/dL (8.5-10.1) 05/02/21 05:00 Total Bilirubin 0.80 mg/dL (0.2-1.0) 05/02/21 05:00 AST 14 Units/L (15-37) L 05/02/21 05:00 ALT 12 Units/L (12-78) 05/02/21 05:00 Alkaline Phosphatase 42 Units/L (46-116) L 05/02/21 05:00 Total Protein 5.6 g/dL (6.4-8.2) L 05/02/21 05:00 Albumin 2.9 g/dL (3.4-5.0) L 05/02/21 05:00 Globulin 2.7 g/dL (2.5-4.5) 05/02/21 05:00 Albumin/Globulin Ratio 1.1 Ratio (1.1-2.1) 05/02/21 05:00 Amylase 11 Units/L (25-115) L 05/01/21 03:51 Lipase 27 Units/L (73-393) L 05/01/21 03:51 Specimen Type Catherized urine 04/30/21 23:03 Urine Color Charline (YELLOW) 04/30/21 23:03 Urine Appearance Clear (CLEAR) 04/30/21 23:03 Urine pH 7.0 (5.0 - 8.0) 04/30/21 23:03 Ur Specific [place] 1.015 (1.000-1.030) 04/30/21 23:03 Urine Protein 1+ (NEGATIVE) 04/30/21 23:03 Urine Glucose (UA) Negative (NEGATIVE) 04/30/21 23:03 Urine Ketones 4+ (NEGATIVE) 04/30/21 23:03 Urine Occult Blood 2+ (NEGATIVE) 04/30/21 23: Urine Nitrite Negative (NEGATIVE) 04/30/21 23:03 Urine Bilirubin Negative (NEGATIVE) 04/30/21 23:03 Urine Urobilinogen Normal (NORMAL) 04/30/21 23:03 Ur Leukocyte Esterase Negative (NEGATIVE) 04/30/21 23:03 Urine RBC None seen /HPF (0-3) 04/30/21 23:03 Urine WBC 3-5 /HPF (0-5) 04/30/21 23:03 Ur Squamous Epith Cells Negative /HPF (NEGATIVE) 04/30/21 23:03 Urine Bacteria Trace /HPF (NEGATIVE) 04/30/21 23:03 Ur Culture Indicated? No/not indicated 04/30/21 23:03 SARS-CoV-2 (PCR) Negative (NEGATIVE) 04/30/21 21:13 Influenza Type A (PCR) Negative (NEGATIVE) 04/30/21 21:13 Influenza Type B (PCR) Negative (NEGATIVE) 04/30/21 21:13 RSV (PCR) Negative (NEGATIVE) 04/30/21 21:13 - Plan (1) Small bowel obstruction Status: Acute Plan: BOWEL REST, NORMAL SALINE AT 125 ML/HR, LEVAQUIN 500MG IV DAILY, FORTAZ 1G IV Q8H, TORADOL 30MG IV Q6H PRN, DILAUDID 1MG IV Q4H PRN, ALBUTEROL NEB TX BID, SOLU-MEDROL 80MG IV Q8H, PROTONIX 40MG IV BID, AND RESUME HIS PERCOCET, FLOMAX, COLACE, AND FLONASE. (2) Nausea and vomiting Status: Acute Qualifiers: Vomiting type: unspecified Qualified Code(s): R11.2 - Nausea with vomiting, unspecified (3) Abdominal pain Status: Chronic Qualifiers: Abdominal location: generalized Qualified Code(s): R10.84 - Generalized abdominal pain
[2021-05-02] MEDS: ATIVAN TAB 0.5 MG PO SCH ×2 (11:21→20:00)
[2021-05-02] MEDS: FLONASE NASAL SPRAY ENOSTRIL SCH ×2 (11:21→21:25)
[2021-05-02] MEDS: COLACE CAP 100 MG PO SCH ×2 (11:21→20:00)
[2021-05-02] MEDS: FLOMAX PO SCH ×2 (11:22→21:00)
[2021-05-02] MEDS: PROTONIX INJ 40 MG VIAL IVP SCH ×2 (11:22→21:25)
[2021-05-02] MEDS: PERCOCET TAB 5/325 MG PO PRN (11:23)
[2021-05-02 13:08] VITALS: BMI 21.7
[2021-05-02] MEDS: SOLU-Medrol 125 MG VIAL IVP SCH ×2 (14:11→21:26)
[2021-05-02] MEDS: TORADOL 30 MG VIAL IVP PRN (17:38)
[2021-05-03] MEDS: NS 1,000 ML IV 1,000 ML IV SCH ×4 (02:39→18:33)
[2021-05-03] MEDS: PERCOCET TAB 5/325 MG PO PRN ×2 (04:45→19:13)
[2021-05-03] MEDS: ATIVAN TAB 0.5 MG PO SCH ×3 (04:52→21:36)
[2021-05-03 05:04] LABS: BASOPHILS % (AUTO) 0 % (0.2-1.0); HEMATOCRIT 40.4 % (42.0-54.0); HEMOGLOBIN 13.6 g/dL (13.5-18.0); LYMPHOCYTES # (AUTO) 0.4 X10^3/uL (1.3-2.9); LYMPHOCYTES % (AUTO) 5.5 % (21.0-51.0); MEAN CORPUSCULAR HEMOGLOBIN 30.6 pg (27.0-34.0); MEAN CORPUSCULAR HGB CONC 33.8 g/dL (33.0-35.0); MEAN CORPUSCULAR VOLUME 90.5 fL (80.0-100.0); MEAN PLATELET VOLUME 8.8 fL (7.4-11.0); MONOCYTES # (AUTO) 0.1 x10^3/uL (0.3-0.8); MONOCYTES % (AUTO) 1.1 % (0.0-13.0); NEUTROPHILS # (AUTO) 6.6 x10^3/uL (2.2-4.8); NEUTROPHILS % (AUTO) 93.4 % (42.0-75.0); RED BLOOD COUNT 4.46 X10^6/uL (4.7-6.0); RED CELL DISTRIBUTION WIDTH 14.2 % (11.6-16.5)
[2021-05-03 05:12] LABS: ALANINE AMINOTRANSFERASE 16 Units/L (12-78); ALBUMIN 2.8 g/dL (3.4-5.0); ALKALINE PHOSPHATASE 41 Units/L (46-116); ASPARTATE AMINO TRANSFERASE 12 Units/L (15-37); BLOOD UREA NITROGEN 23 mg/dL (7-18); CALCIUM 8.2 mg/dL (8.5-10.1); CARBON DIOXIDE 20.9 mmol/L (21-32); CHLORIDE 106 mmol/L (98-107); COR CA(FOR HYPOALB) 9.2 mg/dL (8.5-10.1); COR NA(FOR HYPERGLY) 138 mmol/L (136-145); CREATININE 0.85 mg/dL (0.70-1.30); SODIUM 138 mmol/L (136-145); TOTAL PROTEIN 5.6 g/dL (6.4-8.2); eGFR NON BLACK RACES > 60 (>60)
[2021-05-03 05:35] LABS: PLATELET MORPHOLOGY COMMENT NORMAL (NORMAL)
[2021-05-03] MEDS: SOLU-Medrol 125 MG VIAL IVP SCH ×3 (05:40→21:39)
[2021-05-03] MEDS: FORTAZ or TAZICEF VIAL INJ 1 G in NS 100 ML IV 100 ML IV SCH ×3 (05:40→21:39)
--- NOTE | 2021-05-03 05:54 | RAD ---
HISTORYSBO Relevant Clinical [id number]/2022 .br.br.br.br dilated loops of small bowel in the upper abdomen unchanged. No pathological soft tissue mass or calcification can be observed. The bony structures are grossly intact.IMPRESSIONA few mildly dilated loops of small bowel which may represent partial early obstruction versus localized ileus.No significant change from previous 05/02/2021.Electronically signed by: Javier Lamar (May 03, 2021 05:53:31)
[2021-05-03] MEDS: FLONASE NASAL SPRAY ENOSTRIL SCH ×2 (08:03→21:38)
[2021-05-03] MEDS: LOVENOX INJ 40 MG SYR SC SCH (08:04)
[2021-05-03] MEDS: FLOMAX PO SCH ×2 (08:04→21:38)
[2021-05-03] MEDS: LEVAQUIN PREMIX IV 500 MG 500 MG/100 ML BAG IV SCH (08:04)
[2021-05-03] MEDS: PROTONIX INJ 40 MG VIAL IVP SCH ×2 (08:04→21:38)
[2021-05-03] MEDS: PROVENTIL NEB TX 0.083% 2.5MG/ 3ML NEB SCH ×2 (08:50→20:35)
--- NOTE | 2021-05-03 11:00 | PCM.PROG ---
Progress Note - Progress Note for Day of Date of Exam: 05/03/21 - Subjective Subjective: WAS ADMITTED FOR TREATMENT OF SMALL BOWEL OBSTRUCTION, N/V, AND ABDOMINAL PAIN. TODAY, HE IS ALERT AND ORIENTED, LYING IN BED ON MORNING ROUNDS. HE CONTINUES WITH COMPLAINTS OF MILD DIFFUSE ABDOMINAL PAIN AT TIMES, WELL NAUSEA AT TIMES. HE ADMITS TO SLIGHT IMPROVEMENT IN SYMPTOMS SINCE YESTERDAY. ON EXAMINATION, HEART IS REGULAR IN RATE AND RHYTHM. BILATERAL LUNGS NOTED WITH DIMINISHED LUNG SOUNDS THROUGHOUT. ABDOMEN IS ROUND, SOFT, AND NOTED WITH DIFFUSE TENDERNESS TO PALPATION. HIS VITALS THIS MORNING ARE: 98.1-71-28-90%-117/61. LABS WERE OBTAINED. ABNORMAL LAB VALUES INCLUDE THE FOLLOWING: RBC 4.46, HCT 40.4, CARBON DIOXIDE 20.9, BUN 23, GLUCOSE 120, CALCIUM 8.2, AST 12, ALK PHOS 41, TOTAL PROTEIN 5.6, ALBUMIN 2.8. KUB WAS REPEATED THIS MORNING AND REVEALED: A few mildly dilated loops of small bowel which may represent partial early obstruction versus localized ileus. No significant change from previous 05/02/2021. HE IS CURRENTLY RECEIVING NORMAL SALINE AT 125 ML/HR, LEVAQUIN 500MG IV DAILY, FORTAZ 1G IV Q8H, TORADOL 30MG IV Q6H PRN, DILAUDID 1MG IV Q4H PRN, AND ALBUTEROL NEB TX BID. WE WILL ADD SOLU-MEDROL 80MG IV Q8H, PROTONIX 40MG IV BID, AND HIS HOME MEDICATIONS OF PERCOCET, FLOMAX, COLACE, AND FLONASE WERE RESUMED. PATIENT MAY HAVE A CLEAR LIQUID DIET TODAY. OTHERWISE, WE PLAN TO FOLLOW UP WITH AM LABS AND KUB AND CONTINUE TO MONITOR. TIME SPENT ON CLINICAL ASSESSMENT, REVIEWING LABS AND IMAGING, DECISION MAKING, AND DOCUMENTATION GREATER THAN 45 MINUTES. - Past Medical Family Social History Past Med/Fam/Surg Hx: No changes since H&P Allergies: Allergies No Known Drug Allergies Allergy (Verified 04/30/21 16:33) - Review of Systems ROS: No change since H&P - Vital Signs and I&O's Vital Signs: Temperature 98.1 F Pulse Rate [Left Brachial] 102 Pulse Rate 71 Respiratory Rate 28 Blood Pressure [Right Arm] 118/74 Blood Pressure 117/61 O2 Sat by Pulse Oximetry 91 Intake and Output: Intake & Output 04/30/21 05/01/21 05/02/21 05/03/21 11:59 11:59 11:59 11:59 Intake Total 758 / 758 2100 / 2100 2999 / 2999 Output Total 200 / 200 745 / 745 1250 / 1250 Balance 558 / 558 1355 / 1355 1749 / 1749 - Physical Exam Oriented: Normal Eyes: Normal Ear: Normal Nose: Normal Throat: Normal Respiratory: Generalized, Diminished Cardiovascular: Normal : Normal Auscultation: Bowel Sounds: Decreased Palpation: Normal Tenderness: Diffuse, Mild Skin: Normal Musculoskeletal: Normal Psychiatric: Normal Mood Description: Calm Affect: Normal Speech Pattern: Clear, Appropriate - Laboratory and Diagnostics Result Diagrams: 05/03/21 04:21 05/03/21 04:21 Labs: Laboratory WBC 7.0 X10^3/uL (3.6-10.0) 05/03/21 04:21 RBC 4.46 X10^6/uL (4.7-6.0) L 05/03/21 04:21 Hgb 13.6 g/dL (13.5-18.0) 05/03/21 04:21 Hct 40.4 % (42.0-54.0) L 05/03/21 04:21 MCV 90.5 fL (80.0-100.0) 05/03/21 04:21 MCH 30.6 pg (27.0-34.0) 05/03/21 04:21 MCHC 33.8 g/dL (33.0-35.0) 05/03/21 04:21 RDW 14.2 % (11.6-16.5) 05/03/21 04:21 Plt Count 165 X10^3/uL (150.0-450.0) 05/03/21 04:21 Plt Count Comment Adequate (ADEQUATE) 05/03/21 04:21 MPV 8.8 fL (7.4-11.0) 05/03/21 04:21 Neut % (Auto) 93.4 % (42.0-75.0) H 05/03/21 04:21 Lymph % (Auto) 5.5 % (21.0-51.0) L 05/03/21 04:21 [place] % (Auto) 1.1 % (0.0-13.0) 05/03/21 04:21 Eos % (Auto) 0.0 % (0.9-2.9) L 05/03/21 04:21 Baso % (Auto) 0 % (0.2-1.0) L 05/03/21 04:21 Neut # (Auto) 6.6 x10^3/uL (2.2-4.8) H 05/03/21 04:21 Lymph # (Auto) 0.4 X10^3/uL (1.3-2.9) L 05/03/21 04:21 [place] # (Auto) 0.1 x10^3/uL (0.3-0.8) L 05/03/21 04:21 Eos # (Auto) 0.0 x10^3/uL (0.0-0.2) 05/03/21 04:21 Baso # (Auto) 0.0 X10^3/uL (0.0-0.1) 05/03/21 04:21 Absolute Nucleated RBC 0.0 /100WBC 05/03/21 04:21 Total Counted 100 05/03/21 04:21 Neutrophils % (Manual) 95 % (39-76) H 05/03/21 04:21 Lymphocytes % (Manual) 3 % (13-43) L 05/03/21 04:21 Monocytes % (Manual) 2 % (4-9) L 05/03/21 04:21 Plt Morphology Comment Normal (NORMAL) 05/03/21 04:21 RBC Morphology Normal (NORMAL) 05/03/21 04:21 Sodium 138 mmol/L (136-145) 05/03/21 04:21 Corrected Sodium 138 mmol/L (136-145) 05/03/21 04:21 Potassium 4.1 mmol/L (3.5-5.1) 05/03/21 04:21 Chloride 106 mmol/L (98-107) 05/03/21 04:21 Carbon Dioxide 20.9 mmol/L (21-32) L 05/03/21 04:21 BUN 23 mg/dL (7-18) H 05/03/21 04:21 Creatinine 0.85 mg/dL (0.70-1.30) 05/03/21 04:21 Est GFR (MDRD) Af Amer > 60 (>60) 05/03/21 04:21 Est GFR (MDRD) Non-Af > 60 (>60) 05/03/21 04:21 Glucose 120 mg/dL (65-99) H 05/03/21 04:21 Calcium 8.2 mg/dL (8.5-10.1) L 05/03/21 04:21 Corrected Calcium 9.2 mg/dL (8.5-10.1) 05/03/21 04:21 Total Bilirubin 0.60 mg/dL (0.2-1.0) 05/03/21 04:21 AST 12 Units/L (15-37) L 05/03/21 04:21 ALT 16 Units/L (12-78) 05/03/21 04:21 Alkaline Phosphatase 41 Units/L (46-116) L 05/03/21 04:21 Total Protein 5.6 g/dL (6.4-8.2) L 05/03/21 04:21 Albumin 2.8 g/dL (3.4-5.0) L 05/03/21 04:21 Globulin 2.8 g/dL (2.5-4.5) 05/03/21 04:21 Albumin/Globulin Ratio 1.0 Ratio (1.1-2.1) L 05/03/21 04:21 Amylase 11 Units/L (25-115) L 05/01/21 03:51 Lipase 27 Units/L (73-393) L 05/01/21 03:51 Specimen Type Catherized urine 04/30/21 23:03 Urine Color Charline (YELLOW) 04/30/21 23:03 Urine Appearance Clear (CLEAR) 04/30/21 23:03 Urine pH 7.0 (5.0 - 8.0) 04/30/21 23:03 Ur Specific [place] 1.015 (1.000-1.030) 04/30/21 23:03 Urine Protein 1+ (NEGATIVE) 04/30/21 23:03 Urine Glucose (UA) Negative (NEGATIVE) 04/30/21 23:03 Urine Ketones 4+ (NEGATIVE) 04/30/21 23:03 Urine Occult Blood 2+ (NEGATIVE) 04/30/21 23:03 Urine Nitrite Negative (NEGATIVE) 04/30/21 23:03 Urine Bilirubin Negative (NEGATIVE) 04/30/21 23:03 Urine Urobilinogen Normal (NORMAL) 04/30/21 23:03 Ur Leukocyte Esterase Negative (NEGATIVE) 04/30/21 23:03 Urine RBC None seen /HPF (0-3) 04/30/21 23:03 Urine WBC 3-5 /HPF (0-5) 04/30/21 23:03 Ur Squamous Epith Cells Negative /HPF (NEGATIVE) 04/30/21 23:03 Urine Bacteria Trace /HPF (NEGATIVE) 04/30/21 23:03 Ur Culture Indicated? No/not indicated 04/30/21 23:03 SARS-CoV-2 (PCR) Negative (NEGATIVE) 04/30/21 21:13 Influenza Type A (PCR) Negative (NEGATIVE) 04/30/21 21:13 Influenza Type B (PCR) Negative (NEGATIVE) 04/30/21 21:13 RSV (PCR) Negative (NEGATIVE) 04/30/21 21:13 - Plan (1) Small bowel obstruction Status: Acute Plan: CLEAR LIQUID DIET, NORMAL SALINE AT 125 ML/HR, LEVAQUIN 500MG IV DAILY, FORTAZ 1G IV Q8H, TORADOL 30MG IV Q6H PRN, DILAUDID 1MG IV Q4H PRN, ALBUTEROL NEB TX BID, SOLU-MEDROL 80MG IV Q8H, PROTONIX 40MG IV BID, AND RESUME HIS PERCOCET, FLOMAX, COLACE, AND FLONASE. (2) Nausea and vomiting Status: Acute Qualifiers: Vomiting type: unspecified Qualified Code(s): R11.2 - Nausea with vomiting, unspecified (3) Abdominal pain Status: Chronic Qualifiers: Abdominal location: generalized Qualified Code(s): R10.84 - Generalized abdominal pain
[2021-05-03] MEDS: COLACE CAP 100 MG PO SCH (21:38)
[2021-05-03] MEDS: ZOFRAN INJ 4 MG VIAL IVP PRN (22:08)
[2021-05-04] MEDS: NS 1,000 ML IV 1,000 ML IV SCH ×4 (02:10→18:36)
[2021-05-04] MEDS: ATIVAN TAB 0.5 MG PO SCH ×3 (03:16→20:15)
[2021-05-04 05:20] LABS: BASOPHILS % (AUTO) 0.1 % (0.2-1.0); HEMATOCRIT 41.4 % (42.0-54.0); LYMPHOCYTES # (AUTO) 0.3 X10^3/uL (1.3-2.9); LYMPHOCYTES % (AUTO) 2.7 % (21.0-51.0); MEAN CORPUSCULAR HEMOGLOBIN 30.4 pg (27.0-34.0); MEAN CORPUSCULAR HGB CONC 33.8 g/dL (33.0-35.0); MEAN CORPUSCULAR VOLUME 90.1 fL (80.0-100.0); MEAN PLATELET VOLUME 9.1 fL (7.4-11.0); MONOCYTES # (AUTO) 0.3 x10^3/uL (0.3-0.8); MONOCYTES % (AUTO) 2.6 % (0.0-13.0); NEUTROPHILS # (AUTO) 12.3 x10^3/uL (2.2-4.8); NEUTROPHILS % (AUTO) 94.6 % (42.0-75.0)
[2021-05-04 05:33] LABS: ALANINE AMINOTRANSFERASE 17 Units/L (12-78); ALBUMIN 2.8 g/dL (3.4-5.0); ALKALINE PHOSPHATASE 41 Units/L (46-116); ASPARTATE AMINO TRANSFERASE 12 Units/L (15-37); BLOOD UREA NITROGEN 25 mg/dL (7-18); CALCIUM 8.1 mg/dL (8.5-10.1); CARBON DIOXIDE 23.9 mmol/L (21-32); CHLORIDE 107 mmol/L (98-107); COR CA(FOR HYPOALB) 9.1 mg/dL (8.5-10.1); COR NA(FOR HYPERGLY) 140 mmol/L (136-145); CREATININE 0.79 mg/dL (0.70-1.30); SODIUM 139 mmol/L (136-145); TOTAL PROTEIN 5.5 g/dL (6.4-8.2); eGFR NON BLACK RACES > 60 (>60)
[2021-05-04] MEDS: SOLU-Medrol 125 MG VIAL IVP SCH ×3 (05:45→21:14)
[2021-05-04] MEDS: FORTAZ or TAZICEF VIAL INJ 1 G in NS 100 ML IV 100 ML IV SCH ×3 (05:45→21:14)
[2021-05-04 06:00] LABS: BAND NEUTROPHILS % 2 % (0-10); PLATELET MORPHOLOGY COMMENT NORMAL (NORMAL)
[2021-05-04] MEDS: ZOFRAN INJ 4 MG VIAL IVP PRN ×2 (06:06→14:16)
[2021-05-04] MEDS: TORADOL 30 MG VIAL IVP PRN ×3 (06:07→22:34)
--- NOTE | 2021-05-04 07:02 | RAD ---
HISTORYSBOSTUDYKUBCOMPARISONNorth [facility] 2021FINDINGSThere is persistent gaseous dilatation of small bowel segments in the upper abdomen. There is a paucity of distal colon gas. No organ enlargement or mass is identified. Visceral outlines are indistinct.IMPRESSIONIntestinal gas pattern described remains consistent with ileus or partial small bowel obstruction. There is little if any significant change in this pattern since prior exam.Electronically signed by: GUANAKITO SHERIFF (May 04, 2021 06:58:21)
[2021-05-04] MEDS: PROVENTIL NEB TX 0.083% 2.5MG/ 3ML NEB SCH ×2 (08:25→20:43)
[2021-05-04] MEDS: LEVAQUIN PREMIX IV 500 MG 500 MG/100 ML BAG IV SCH (09:06)
[2021-05-04] MEDS: PROTONIX INJ 40 MG VIAL IVP SCH ×2 (09:06→20:15)
[2021-05-04] MEDS: FLONASE NASAL SPRAY ENOSTRIL SCH ×2 (09:08→20:15)
[2021-05-04] MEDS: FLOMAX PO SCH ×2 (09:08→20:15)
[2021-05-04] MEDS: PERCOCET TAB 5/325 MG PO PRN (09:08)
[2021-05-04] MEDS: LOVENOX INJ 40 MG SYR SC SCH (09:09)
--- NOTE | 2021-05-04 11:22 | PCM.PROG ---
Progress Note - Progress Note for Day of Date of Exam: 05/04/21 - Subjective Subjective: WAS ADMITTED FOR TREATMENT OF SMALL BOWEL OBSTRUCTION, N/V, AND ABDOMINAL PAIN. TODAY, HE IS ALERT AND ORIENTED, LYING IN BED ON MORNING ROUNDS. HE CONTINUES WITH COMPLAINTS OF MILD DIFFUSE ABDOMINAL PAIN. HE HAS ALSO HAD MULTIPLE EPISODES OF NAUSEA AND VOMITING THROUGHOUT THE NIGHT. SPOUSE REPORTS THAT HE HAS HAD A NON-PRODUCTIVE COUGH AND SHORTNESS OF BREATH AT TIMES. HIS OXYGEN SATURATIONS THROUGHOUT THE NIGHT REMAINED IN THE UPPER 80s. ON EXAMINATION, HEART IS REGULAR IN RATE AND RHYTHM. BILATERAL LUNGS NOTED WITH DIMINISHED LUNG SOUNDS THROUGHOUT. ABDOMEN IS ROUND, SOFT, AND NOTED WITH DIFFUSE TENDERNESS TO PALPATION. HIS VITALS THIS MORNING ARE: 98.3-82-30-86%ra-125/79. LABS WERE OBTAINED. ABNORMAL LAB VALUES INCLUDE THE FOLLOWING: WBC 13.0, RBC 4.60, HCT 41.4, BUN 25, GLUCOSE 132, CALCIUM 8.1, AST 12, ALK PHOS 41, TOTAL PROTEIN 5.5, ALBUMIN 2.8. KUB WAS REPEATED THIS MORNING AND REVEALED: Intestinal gas pattern described remains consistent with ileus or partial small bowel obstruction. There is little if any significant change in this pattern since prior exam. HE IS CURRENTLY RECEIVING NORMAL SALINE AT 125 ML/HR, LEVAQUIN 500MG IV DAILY, FORTAZ 1G IV Q8H, TORADOL 30MG IV Q6H PRN, DILAUDID 1MG IV Q4H PRN, ALBUTEROL NEB TX BID, SOLU-MEDROL 80MG IV Q8H, PROTONIX 40MG IV BID, AND HIS HOME MEDICATIONS OF PERCOCET, FLOMAX, COLACE, AND FLONASE WERE RESUMED. WE WILL PLACE HIM ON OXYGEN VIA NASAL CANNULA AT 2 LPM, OBTAIN A CHEST XRAY, AND MAKE HIM NPO TODAY. OTHERWISE, WE PLAN TO FOLLOW UP WITH AM LABS AND KUB AND CONTINUE TO MONITOR. TIME SPENT ON CLINICAL ASSESSMENT, REVIEWING LABS AND IMAGING, DECISION MAKING, AND DOCUMENTATION GREATER THAN 45 MINUTES. - Past Medical Family Social History Past Med/Fam/Surg Hx: No changes since H&P Allergies: Allergies No Known Drug Allergies Allergy (Verified 04/30/21 16:33) - Review of Systems ROS: No change since H&P - Vital Signs and I&O's Vital Signs: Temperature 98.3 F Pulse Rate [Left Brachial] 102 Pulse Rate 81 Respiratory Rate 18 Blood Pressure [Right Arm] 118/74 Blood Pressure 125/79 O2 Sat by Pulse Oximetry 91 Intake and Output: Intake & Output 05/01/21 05/02/21 05/03/21 05/04/21 11:59 11:59 11:59 11:59 Intake Total 758 / 758 2100 / 2100 2999 / 2999 3533 / 3533 Output Total 200 / 200 745 / 745 1250 / 1250 400 / 400 Balance 558 / 558 1355 / 1355 1749 / 1749 3133 / 3133 - Physical Exam Oriented: Normal Eyes: Normal Ear: Normal Nose: Normal Throat: Normal Respiratory: Generalized, Diminished Cardiovascular: Normal : Normal Auscultation: Bowel Sounds: Decreased Palpation: Normal Tenderness: Diffuse, Mild Skin: Normal Musculoskeletal: Normal Psychiatric: Normal Mood Description: Calm Affect: Normal Speech Pattern: Clear, Appropriate - Laboratory and Diagnostics Result Diagrams: 05/04/21 04:56 05/04/21 04:56 Labs: Laboratory WBC 13.0 X10^3/uL (3.6-10.0) H 05/04/21 04:56 RBC 4.60 X10^6/uL (4.7-6.0) L 05/04/21 04:56 Hgb 14.0 g/dL (13.5-18.0) 05/04/21 04:56 Hct 41.4 % (42.0-54.0) L 05/04/21 04:56 MCV 90.1 fL (80.0-100.0) 05/04/21 04:56 MCH 30.4 pg (27.0-34.0) 05/04/21 04:56 MCHC 33.8 g/dL (33.0-35.0) 05/04/21 04:56 RDW 14.0 % (11.6-16.5) 05/04/21 04:56 Plt Count 190 X10^3/uL (150.0-450.0) 05/04/21 04:56 Plt Count Comment Adequate (ADEQUATE) 05/04/21 04:56 MPV 9.1 fL (7.4-11.0) 05/04/21 04:56 Neut % (Auto) 94.6 % (42.0-75.0) H 05/04/21 04:56 Lymph % (Auto) 2.7 % (21.0-51.0) L 05/04/21 04:56 [place] % (Auto) 2.6 % (0.0-13.0) 05/04/21 04:56 Eos % (Auto) 0.0 % (0.9-2.9) L 05/04/21 04:56 Baso % (Auto) 0.1 % (0.2-1.0) L 05/04/21 04:56 Neut # (Auto) 12.3 x10^3/uL (2.2-4.8) H 05/04/21 04:56 Lymph # (Auto) 0.3 X10^3/uL (1.3-2.9) L 05/04/21 04:56 [place] # (Auto) 0.3 x10^3/uL (0.3-0.8) 05/04/21 04:56 Eos # (Auto) 0.0 x10^3/uL (0.0-0.2) 05/04/21 04:56 Baso # (Auto) 0.0 X10^3/uL (0.0-0.1) 05/04/21 04:56 Absolute Nucleated RBC 0.0 /100WBC 05/04/21 04:56 Total Counted 100 05/04/21 04:56 Neutrophils % (Manual) 93 % (39-76) H 05/04/21 04:56 Band Neutrophils % 2 % (0-10) 05/04/21 04:56 Lymphocytes % (Manual) 3 % (13-43) L 05/04/21 04:56 Monocytes % (Manual) 2 % (4-9) L 05/04/21 04:56 Plt Morphology Comment Normal (NORMAL) 05/04/21 04:56 RBC Morphology Normal (NORMAL) 05/04/21 04:56 Sodium 139 mmol/L (136-145) 05/04/21 04:56 Corrected Sodium 140 mmol/L (136-145) 05/04/21 04:56 Potassium 3.8 mmol/L (3.5-5.1) 05/04/21 04:56 Chloride 107 mmol/L (98-107) 05/04/21 04:56 Carbon Dioxide 23.9 mmol/L (21-32) 05/04/21 04:56 BUN 25 mg/dL (7-18) H 05/04/21 04:56 Creatinine 0.79 mg/dL (0.70-1.30) 05/04/21 04:56 Est GFR (MDRD) Af Amer > 60 (>60) 05/04/21 04:56 Est GFR (MDRD) Non-Af > 60 (>60) 05/04/21 04:56 Glucose 132 mg/dL (65-99) H 05/04/21 04:56 Calcium 8.1 mg/dL (8.5-10.1) L 05/04/21 04:56 Corrected Calcium 9.1 mg/dL (8.5-10.1) 05/04/21 04:56 Total Bilirubin 0.50 mg/dL (0.2-1.0) 05/04/21 04:56 AST 12 Units/L (15-37) L 05/04/21 04:56 ALT 17 Units/L (12-78) 05/04/21 04:56 Alkaline Phosphatase 41 Units/L (46-116) L 05/04/21 04:56 Total Protein 5.5 g/dL (6.4-8.2) L 05/04/21 04:56 Albumin 2.8 g/dL (3.4-5.0) L 05/04/21 04:56 Globulin 2.7 g/dL (2.5-4.5) 05/04/21 04:56 Albumin/Globulin Ratio 1.0 Ratio (1.1-2.1) L 05/04/21 04:56 Amylase 11 Units/L (25-115) L 05/01/21 03:51 Lipase 27 Units/L (73-393) L 05/01/21 03:51 Specimen Type Catherized urine 04/30/21 23:03 Urine Color Charline (YELLOW) 04/30/21 23:03 Urine Appearance Clear (CLEAR) 04/30/21 23:03 Urine pH 7.0 (5.0 - 8.0) 04/30/21 23:03 Ur Specific [place] 1.015 (1.000-1.030) 04/30/21 23:03 Urine Protein 1+ (NEGATIVE) 04/30/21 23:03 Urine Glucose (UA) Negative (NEGATIVE) 04/30/21 23:03 Urine Ketones 4+ (NEGATIVE) 04/30/21 23:03 Urine Occult Blood 2+ (NEGATIVE) 04/30/21 23:03 Urine Nitrite Negative (NEGATIVE) 04/30/21 23:03 Urine Bilirubin Negative (NEGATIVE) 04/30/21 23:03 Urine Urobilinogen Normal (NORMAL) 04/30/21 23:03 Ur Leukocyte Esterase Negative (NEGATIVE) 04/30/21 23:03 Urine RBC None seen /HPF (0-3) 04/30/21 23:03 Urine WBC 3-5 /HPF (0-5) 04/30/21 23:03 Ur Squamous Epith Cells Negative /HPF (NEGATIVE) 04/30/21 23:03 Urine Bacteria Trace /HPF (NEGATIVE) 04/30/21 23:03 Ur Culture Indicated? No/not indicated 04/30/21 23:03 SARS-CoV-2 (PCR) Negative (NEGATIVE) 04/30/21 21:13 Influenza Type A (PCR) Negative (NEGATIVE) 04/30/21 21:13 Influenza Type B (PCR) Negative (NEGATIVE) 04/30/21 21:13 RSV (PCR) Negative (NEGATIVE) 04/30/21 21:13 - Plan (1) Small bowel obstruction Status: Acute Plan: NPO, NORMAL SALINE AT 125 ML/HR, LEVAQUIN 500MG IV DAILY, FORTAZ 1G IV Q8H, TORADOL 30MG IV Q6H PRN, DILAUDID 1MG IV Q4H PRN, ALBUTEROL NEB TX BID, SOLU-MEDROL 80MG IV Q8H, PROTONIX 40MG IV BID, AND RESUME HIS PERCOCET, FLOMAX, COLACE, AND FLONASE. (2) Nausea and vomiting Status: Acute Qualifiers: Vomiting type: unspecified Qualified Code(s): R11.2 - Nausea with vomiting, unspecified (3) Abdominal pain Status: Chronic Qualifiers: Abdominal location: generalized Qualified Code(s): R10.84 - Generalized abdominal pain (4) Shortness of breath Status: Acute Plan: 02 AT 2 LPM, OBTAIN CHEST XRAY
[2021-05-04] MEDS: COLACE CAP 100 MG PO SCH (20:15)
[2021-05-05] MEDS: NS 1,000 ML IV 1,000 ML IV SCH ×4 (02:21→20:12)
[2021-05-05] MEDS: ATIVAN TAB 0.5 MG PO SCH ×3 (03:27→20:00)
[2021-05-05 05:00] LABS: BASOPHILS % (AUTO) 0.1 % (0.2-1.0); HEMATOCRIT 38.1 % (42.0-54.0); HEMOGLOBIN 12.9 g/dL (13.5-18.0); LYMPHOCYTES # (AUTO) 0.3 X10^3/uL (1.3-2.9); LYMPHOCYTES % (AUTO) 2.6 % (21.0-51.0); MEAN CORPUSCULAR HEMOGLOBIN 30.6 pg (27.0-34.0); MEAN CORPUSCULAR VOLUME 90.1 fL (80.0-100.0); MEAN PLATELET VOLUME 9.4 fL (7.4-11.0); MONOCYTES # (AUTO) 0.4 x10^3/uL (0.3-0.8); NEUTROPHILS # (AUTO) 9.5 x10^3/uL (2.2-4.8); NEUTROPHILS % (AUTO) 93.3 % (42.0-75.0); RED BLOOD COUNT 4.23 X10^6/uL (4.7-6.0); RED CELL DISTRIBUTION WIDTH 14.1 % (11.6-16.5); WHITE BLOOD COUNT 10.2 X10^3/uL (3.6-10.0)
[2021-05-05 05:19] LABS: ALANINE AMINOTRANSFERASE 17 Units/L (12-78); ALBUMIN 2.5 g/dL (3.4-5.0); ALKALINE PHOSPHATASE 33 Units/L (46-116); ASPARTATE AMINO TRANSFERASE 10 Units/L (15-37); BLOOD UREA NITROGEN 25 mg/dL (7-18); CALCIUM 7.9 mg/dL (8.5-10.1); CARBON DIOXIDE 25.5 mmol/L (21-32); CHLORIDE 108 mmol/L (98-107); COR CA(FOR HYPOALB) 9.1 mg/dL (8.5-10.1); COR NA(FOR HYPERGLY) 140 mmol/L (136-145); CREATININE 0.76 mg/dL (0.70-1.30); SODIUM 140 mmol/L (136-145); TOTAL PROTEIN 4.9 g/dL (6.4-8.2); eGFR NON BLACK RACES > 60 (>60)
[2021-05-05] MEDS: FORTAZ or TAZICEF VIAL INJ 1 G in NS 100 ML IV 100 ML IV SCH ×3 (05:30→22:00)
[2021-05-05] MEDS: SOLU-Medrol 125 MG VIAL IVP SCH ×3 (05:30→22:00)
[2021-05-05 05:39] LABS: PLATELET MORPHOLOGY COMMENT NORMAL (NORMAL); SMUDGE CELLS FEW
--- NOTE | 2021-05-05 06:14 | RAD ---
HISTORYcough, hypoxiaSTUDYCHEST, 1 VIEWCOMPARISONNoneTECHNIQUEAP view of the chestFINDINGSRight chest wall port with tip in good position. The right heart border is partially obscured. Left heart border is also partially obscured. The heart is likely normal in size. Mediastinal contours appear normal. Low lung volumes. Bibasilar opacities are present. Cannot exclude small pleural effusions. No pneumothorax.IMPRESSIONLow lung volumes. Bibasilar opacities may represent atelectasis or pneumonia. Cannot exclude small pleural effusions.Electronically signed by: Phong Haney (May 05, 2021 06:13:12)
--- NOTE | 2021-05-05 06:59 | RAD ---
HISTORYSBOSTUDYKUBCOMPARISONEvergreen [facility] Center 2021FINDINGSThere is slight interval increase in gaseous dilatation of small bowel segments in the upper abdomen. There is a paucity of gas in the distal colon. No discrete mass, ascites or abnormal calcification noted.IMPRESSIONSlight interval increase in small bowel dilatation. Small-bowel obstruction should be excluded; consider CT abdomen.Electronically signed by: GUANAKITO SHERIFF (May 05, 2021 06:57:55)
[2021-05-05] MEDS: DUONEB 0.5 MG/3 MG (3 mL) NEB SCH ×4 (08:46→21:15)
--- NOTE | 2021-05-05 09:08 | PCM.PROG ---
Progress Note - Progress Note for Day of Date of Exam: 05/05/21 - Subjective Subjective: WAS ADMITTED FOR TREATMENT OF SMALL BOWEL OBSTRUCTION, N/V, AND ABDOMINAL PAIN. TODAY, HE IS ALERT AND ORIENTED, LYING IN BED ON MORNING ROUNDS. HE CONTINUES WITH COMPLAINTS OF MILD DIFFUSE ABDOMINAL PAIN. HE HAS CONTINUED WITH SOME NAUSEA THROUGHOUT THE NIGHT. HE ALSO CONTINUES WITH A NON- PRODUCTIVE COUGH AND SHORTNESS OF BREATH AT TIMES. HE IS CURRENTLY ON NASAL CANNULA AT 2 LPM. SATURATIONS HAVE BEEN 88-94% THIS MORNING AND THROUGHOUT THE NIGHT. ON EXAMINATION, HEART IS REGULAR IN RATE AND RHYTHM. BILATERAL LUNGS NOTED WITH DIMINISHED LUNG SOUNDS THROUGHOUT. ABDOMEN IS ROUND, SOFT, AND NOTED WITH DIFFUSE TENDERNESS TO PALPATION. HIS VITALS THIS MORNING ARE: 98.7-72-30-90%-128/68. LABS WERE OBTAINED. ABNORMAL LAB VALUES INCLUDE THE FOLLOWING: WBC 10.2, RBC 4.23, HGB 12.9, HCT 38.1, SODIUM 140, POTASSIUM 3.3, CHLORIDE 108, BUN 25, GLUCOSE 119, CALCIUM 7.9, AST 10, ALK PHOS 33, TOTAL PROTEIN 4.9, ALBUMIN 2.5. KUB WAS REPEATED THIS MORNING AND REVEALED: Slight interval increase in small bowel dilatation. Small-bowel obstruction should be excluded; consider CT abdomen. A CHEST XRAY WAS OBTAINED AND REVEALED: Low lung volumes. Bibasilar opacities may represent atelectasis or pneumonia. Cannot exclude small pleural effusions. HE IS CURRENTLY RECEIVING NORMAL SALINE AT 125 ML/HR, LEVAQUIN 500MG IV DAILY, FORTAZ 1G IV Q8H, TORADOL 30MG IV Q6H PRN, DILAUDID 1MG IV Q4H PRN, ALBUTEROL NEB TX BID, SOLU-MEDROL 80MG IV Q8H, PROTONIX 40MG IV BID, AND HIS HOME MEDICATIONS OF PERCOCET, FLOMAX, COLACE, AND FLONASE WERE RESUMED. TODAY, WE WILL CHANGE ALBUTEROL NEBS TO DUONEBS QID. WE WILL OBTAIN AN ABG, ABDOMEN/PELVIS CT WITH CONTRAST, AND A CHEST CTA. OTHERWISE, WE PLAN TO FOLLOW UP WITH AM LABS AND KUB AND CONTINUE TO MONITOR. TIME SPENT ON CLINICAL ASSESSMENT, REVIEWING LABS AND IMAGING, DECISION MAKING, AND DOCUMENTATION GREATER THAN 45 MINUTES. - Past Medical Family Social History Past Med/Fam/Surg Hx: No changes since H&P Allergies: Allergies No Known Drug Allergies Allergy (Verified 04/30/21 16:33) - Review of Systems ROS: No change since H&P - Vital Signs and I&O's Vital Signs: Temperature 98.1 F Pulse Rate [Left Brachial] 102 Pulse Rate 72 Respiratory Rate 36 Blood Pressure [Right Arm] 118/74 Blood Pressure 128/68 O2 Sat by Pulse Oximetry 90 Intake and Output: Intake & Output 05/02/21 05/03/21 05/04/21 05/05/21 11:59 11:59 11:59 11:59 Intake Total 2099 / 2100 2999 / 2999 3533 / 3533 2185 / 2185 Output Total 745 / 745 1250 / 1250 400 / 400 Balance 1355 / 1355 1749 / 1749 3133 / 3133 2185 / 2185 - Physical Exam Oriented: Normal Eyes: Normal Ear: Normal Nose: Normal Throat: Normal Respiratory: Generalized, Diminished Cardiovascular: Normal : Normal Auscultation: Bowel Sounds: Decreased Palpation: Normal Tenderness: Diffuse, Mild Skin: Normal Musculoskeletal: Normal Psychiatric: Normal Mood Description: Calm Affect: Normal Speech Pattern: Clear, Appropriate - Laboratory and Diagnostics Result Diagrams: 05/05/21 04:17 05/05/21 04:17 Labs: Laboratory WBC 10.2 X10^3/uL (3.6-10.0) H 05/05/21 04:17 RBC 4.23 X10^6/uL (4.7-6.0) L 05/05/21 04:17 Hgb 12.9 g/dL (13.5-18.0) L 05/05/21 04:17 Hct 38.1 % (42.0-54.0) L 05/05/21 04:17 MCV 90.1 fL (80.0-100.0) 05/05/21 04:17 MCH 30.6 pg (27.0-34.0) 05/05/21 04:17 MCHC 34.0 g/dL (33.0-35.0) 05/05/21 04:17 RDW 14.1 % (11.6-16.5) 05/05/21 04:17 Plt Count 160 X10^3/uL (150.0-450.0) 05/05/21 04:17 Plt Count Comment Adequate (ADEQUATE) 05/05/21 04:17 MPV 9.4 fL (7.4-11.0) 05/05/21 04:17 Neut % (Auto) 93.3 % (42.0-75.0) H 05/05/21 04:17 Lymph % (Auto) 2.6 % (21.0-51.0) L 05/05/21 04:17 [place] % (Auto) 4.0 % (0.0-13.0) 05/05/21 04:17 Eos % (Auto) 0.0 % (0.9-2.9) L 05/05/21 04:17 Baso % (Auto) 0.1 % (0.2-1.0) L 05/05/21 04:17 Neut # (Auto) 9.5 x10^3/uL (2.2-4.8) H 05/05/21 04:17 Lymph # (Auto) 0.3 X10^3/uL (1.3-2.9) L 05/05/21 04:17 [place] # (Auto) 0.4 x10^3/uL (0.3-0.8) 05/05/21 04:17 Eos # (Auto) 0.0 x10^3/uL (0.0-0.2) 05/05/21 04:17 Baso # (Auto) 0.0 X10^3/uL (0.0-0.1) 05/05/21 04:17 Absolute Nucleated RBC 0.0 /100WBC 05/05/21 04:17 Total Counted 100 05/05/21 04:17 Neutrophils % (Manual) 94 % (39-76) H 05/05/21 04:17 Band Neutrophils % 2 % (0-10) 05/04/21 04:56 Lymphocytes % (Manual) 2 % (13-43) L 05/05/21 04:17 Monocytes % (Manual) 4 % (4-9) 05/05/21 04:17 Smudge Cells Few 05/05/21 04:17 Plt Morphology Comment Normal (NORMAL) 05/05/21 04:17 RBC Morphology Normal (NORMAL) 05/05/21 04:17 Sodium 140 mmol/L (136-145) 05/05/21 04:17 Corrected Sodium 140 mmol/L (136-145) 05/05/21 04:17 Potassium 3.3 mmol/L (3.5-5.1) L 05/05/21 04:17 Chloride 108 mmol/L (98-107) H 05/05/21 04:17 Carbon Dioxide 25.5 mmol/L (21-32) 05/05/21 04:17 BUN 25 mg/dL (7-18) H 05/05/21 04:17 Creatinine 0.76 mg/dL (0.70-1.30) 05/05/21 04:17 Est GFR (MDRD) Af Amer > 60 (>60) 05/05/21 04:17 Est GFR (MDRD) Non-Af > 60 (>60) 05/05/21 04:17 Glucose 119 mg/dL (65-99) H 05/05/21 04:17 Calcium 7.9 mg/dL (8.5-10.1) L 05/05/21 04:17 Corrected Calcium 9.1 mg/dL (8.5-10.1) 05/05/21 04:17 Magnesium 2.0 mg/dL (1.7-2.9) 05/05/21 04:17 Total Bilirubin 0.50 mg/dL (0.2-1.0) 05/05/21 04:17 AST 10 Units/L (15-37) L 05/05/21 04:17 ALT 17 Units/L (12-78) 05/05/21 04:17 Alkaline Phosphatase 33 Units/L (46-116) L 05/05/21 04:17 B-Natriuretic Peptide 83.7 pg/mL (0-79) H 05/04/21 04:56 Total Protein 4.9 g/dL (6.4-8.2) L 05/05/21 04:17 Albumin 2.5 g/dL (3.4-5.0) L 05/05/21 04:17 Globulin 2.4 g/dL (2.5-4.5) L 05/05/21 04:17 Albumin/Globulin Ratio 1.0 Ratio (1.1-2.1) L 05/05/21 04:17 Amylase 11 Units/L (25-115) L 05/01/21 03:51 Lipase 27 Units/L (73-393) L 05/01/21 03:51 Specimen Type Catherized urine 04/30/21 23:03 Urine Color Charline (YELLOW) 04/30/21 23:03 Urine Appearance Clear (CLEAR) 04/30/21 23:03 Urine pH 7.0 (5.0 - 8.0) 04/30/21 23:03 Ur Specific [place] 1.015 (1.000-1.030) 04/30/21 23:03 Urine Protein 1+ (NEGATIVE) 04/30/21 23:03 Urine Glucose (UA) Negative (NEGATIVE) 04/30/21 23:03 Urine Ketones 4+ (NEGATIVE) 04/30/21 23:03 Urine Occult Blood 2+ (NEGATIVE) 04/30/21 23:03 Urine Nitrite Negative (NEGATIVE) 04/30/21 23: Urine Bilirubin Negative (NEGATIVE) 04/30/21 23:03 Urine Urobilinogen Normal (NORMAL) 04/30/21 23:03 Ur Leukocyte Esterase Negative (NEGATIVE) 04/30/21 23:03 Urine RBC None seen /HPF (0-3) 04/30/21 23:03 Urine WBC 3-5 /HPF (0-5) 04/30/21 23:03 Ur Squamous Epith Cells Negative /HPF (NEGATIVE) 04/30/21 23:03 Urine Bacteria Trace /HPF (NEGATIVE) 04/30/21 23:03 Ur Culture Indicated? No/not indicated 04/30/21 23:03 SARS-CoV-2 (PCR) Negative (NEGATIVE) 04/30/21 21:13 Influenza Type A (PCR) Negative (NEGATIVE) 04/30/21 21:13 Influenza Type B (PCR) Negative (NEGATIVE) 04/30/21 21:13 RSV (PCR) Negative (NEGATIVE) 04/30/21 21:13 - Plan (1) Small bowel obstruction Status: Acute Plan: NPO, NORMAL SALINE AT 125 ML/HR, LEVAQUIN 500MG IV DAILY, FORTAZ 1G IV Q8H, TORADOL 30MG IV Q6H PRN, DILAUDID 1MG IV Q4H PRN, ALBUTEROL NEB TX BID, SOLU-MEDROL 80MG IV Q8H, PROTONIX 40MG IV BID, AND RESUME HIS PERCOCET, FLOMAX, COLACE, AND FLONASE. (2) Pneumonia Status: Acute Qualifiers: Pneumonia type: due to unspecified organism Laterality: bilateral Lung location: lower lobe of lung Qualified Code(s): J18.9 - Pneumonia, unspecified organism (3) Nausea and vomiting Status: Acute Qualifiers: Vomiting type: unspecified Qualified Code(s): R11.2 - Nausea with vomiting, unspecified (4) Abdominal pain Status: Chronic Qualifiers: Abdominal location: generalized Qualified Code(s): R10.84 - Generalized abdominal pain (5) Shortness of breath Status: Acute Plan: 02 AT 2 LPM, OBTAIN CHEST XRAY
[2021-05-05] MEDS ORDERED: K-RIDER 10 MEQ/NS 100 ML 10 MEQ/100 ML BAG IV PRN (09:11)
[2021-05-05] MEDS ORDERED: POTASSIUM CHL 60 MEQ/NS 0.45% 500 ML IV PRN (09:11)
[2021-05-05] MEDS ORDERED: POTASSIUM CHL 40 MEQ/NS 0.45% 500 ML IV PRN (09:11)
[2021-05-05] MEDS ORDERED: MICRO K EXTEN CAP 10 MEQ PO PRN (09:11)
[2021-05-05] MEDS ORDERED: POTASSIUM CHLORIDE LIQ 20 MEQ UDC PO PRN (09:11)
[2021-05-05] MEDS ORDERED: MAGNESIUM SULFATE 1 GRAM/100 mL PREMIX 1 G/100 ML BAG IV PRN (09:11)
[2021-05-05] MEDS ORDERED: KLOR-CON PO PRN (09:11)
[2021-05-05] MEDS: LEVAQUIN PREMIX IV 500 MG 500 MG/100 ML BAG IV SCH (09:27)
[2021-05-05] MEDS: FLOMAX PO SCH ×2 (09:27→20:12)
[2021-05-05] MEDS: FLONASE NASAL SPRAY ENOSTRIL SCH ×2 (09:27→20:30)
[2021-05-05] MEDS: PROTONIX INJ 40 MG VIAL IVP SCH ×2 (09:27→20:12)
[2021-05-05] MEDS: ZOFRAN INJ 4 MG VIAL IVP PRN (09:28)
[2021-05-05] MEDS: K-DUR TAB 20 MEQ PO PRN ×2 (09:28→18:09)
[2021-05-05] MEDS: LOVENOX INJ 40 MG SYR SC SCH (09:28)
[2021-05-05 09:33] LABS: ABG ALLEN TEST POS; ABG BASE EXCESS 0.1 mmol/L (-2.0-2.0); ABG HCO3 23.6 mmol/L (22-26)
--- NOTE | 2021-05-05 13:58 | CT ---
HISTORYhypoxia, sob, r/o PESTUDYCTA CHESTCOMPARISONNone availableTECHNIQUEMultiple axial images of the chest were obtained from the thoracic inlet to the upper abdomen after the administration of IV contrast. 3D reconstructions utilizing axial MIPS imaging was performed and reviewed. Dose reduction techniques including Automated Exposure Control (AEC) and adjustment of mA and kV were utilized.FINDINGS[The central pulmonary arterial system does not demonstrate central filling defects to suggest pulmonary emboli.]Right chest wall MediPort has its tip terminating within the lower SVC.Heart size is enlarged. No pericardial effusion. Moderate calcified atherosclerotic disease of the coronary arteries. There is calcification of the aortic valve. Ascending thoracic aorta measures 4.3 x 4.2 cm on axial image 54. Transverse and descending thoracic aorta are normal in caliber.Multifocal areas of patchy peripheral consolidation within the right upper lobe. There is moderate subsegmental atelectasis within the lingula and right lower lobe. There is passive atelectasis of the dependent right lower lobe secondary to a small right-sided pleural effusion. Aside for subsegmental atelectasis and scarring within the left lower lobe and a small left-sided pleural effusion the left lung is clear. No pneumothorax.Review of bone windows demonstrates no acute osseous abnormality.IMPRESSIONNo PTE.Multifocal peribronchial consolidation within the right upper lobe is consistent with pneumonia.Moderate subsegmental atelectasis within the lingula, left lower lobe and right lower lobe.Small bilateral pleural effusions.Cardiomegaly with moderate calcified atherosclerotic disease of the coronary arteries.Ascending thoracic aorta is ectatic measuring 4.3 x 4.2 cm. No acute aortic syndrome.Electronically signed by: CLAY JASMINE (May 05, 2021 13:57:21)
--- NOTE | 2021-05-05 14:06 | CT ---
HISTORYileus vs CBO, worseningSTUDYABDOMEN/PELVIS WITH CONCOMPARISONNone availableTECHNIQUEMultiple axial images of the abdomen and pelvis were obtained from the lung bases to the pubic symphysis after the administration of IV contrast. Dose reduction techniques including Automated Exposure Control (AEC) and adjustment of mA and kV were utilized.FINDINGS[Multiple low attenuating lesions within the liver parenchyma are consistent with cyst. There is no suspicious hepatic lesion. Liver morphology is normal. Gallbladder, bile ducts and spleen are normal. Pancreas and adrenal glands are normal. Kidneys demonstrate no mass or hydronephrosis.The rectum is normal. Distal colonic diverticulosis without evidence of acute diverticulitis the colon is essentially collapsed. The proximal colon extends into a large ventral abdominal hernia. The neck of the hernia measures approximately 3.8 cm craniocaudal by 4.3 cm transverse. There is high-grade obstruction of the small bowel. There are collapsed loops of bowel extending into the neck of the ventral abdominal hernia. Mild mesenteric venous engorgement is noted within the abdomen. Moderate free fluid within the hernia sac and dependent pelvis. No pneumatosis or free air. There is also a small hiatal hernia.Abdominal aorta demonstrates fusiform aneurysmal dilatation measuring approximately 3.0 x 3.3 cm on axial image 37.Review of bone windows demonstrates no acute osseous abnormality.IMPRESSIONHigh-grade small bowel obstruction, source of obstruction and transition point is noted at the neck of the ventral abdominal wall hernia. Multiple loops of herniated small bowel and proximal colon within the ventral abdominal hernia with fluid within the hernia sac and dependent pelvis raises concern for developing ischemia. Surgical consultation is recommended. No free air or pneumatosis. Surgical consultation is recommended.Distal colonic diverticulosis without evidence of acute diverticulitis.Small sliding hiatal hernia.Fusiform dilatation of the infrarenal abdominal aorta measuring 3.3 cm in greatest dimension.Hepatic cysts.Electronically signed by: CLAY JASMINE (May 05, 2021 14:05:59)
[2021-05-05] MEDS: COLACE CAP 100 MG PO SCH (20:12)
[2021-05-05] MEDS: PERCOCET TAB 5/325 MG PO PRN (20:53)
[2021-05-06] MEDS: NS 1,000 ML IV 1,000 ML IV SCH ×3 (02:13→18:07)
[2021-05-06] MEDS: TORADOL 30 MG VIAL IVP PRN ×2 (03:12→11:51)
[2021-05-06] MEDS: ATIVAN TAB 0.5 MG PO SCH ×3 (03:13→20:30)
[2021-05-06 05:02] LABS: BASOPHILS % (AUTO) 0.1 % (0.2-1.0); HEMATOCRIT 36.1 % (42.0-54.0); HEMOGLOBIN 12.5 g/dL (13.5-18.0); LYMPHOCYTES # (AUTO) 0.2 X10^3/uL (1.3-2.9); LYMPHOCYTES % (AUTO) 3.9 % (21.0-51.0); MEAN CORPUSCULAR HEMOGLOBIN 30.7 pg (27.0-34.0); MEAN CORPUSCULAR HGB CONC 34.6 g/dL (33.0-35.0); MEAN CORPUSCULAR VOLUME 88.5 fL (80.0-100.0); MEAN PLATELET VOLUME 9.4 fL (7.4-11.0); MONOCYTES # (AUTO) 0.2 x10^3/uL (0.3-0.8); NEUTROPHILS # (AUTO) 5.7 x10^3/uL (2.2-4.8); RED BLOOD COUNT 4.08 X10^6/uL (4.7-6.0); RED CELL DISTRIBUTION WIDTH 14.1 % (11.6-16.5); WHITE BLOOD COUNT 6.1 X10^3/uL (3.6-10.0)
[2021-05-06 05:11] LABS: ALANINE AMINOTRANSFERASE 18 Units/L (12-78); ALBUMIN 2.5 g/dL (3.4-5.0); ALKALINE PHOSPHATASE 30 Units/L (46-116); ASPARTATE AMINO TRANSFERASE 9 Units/L (15-37); BLOOD UREA NITROGEN 22 mg/dL (7-18); CALCIUM 7.8 mg/dL (8.5-10.1); CARBON DIOXIDE 24.2 mmol/L (21-32); CHLORIDE 108 mmol/L (98-107); COR NA(FOR HYPERGLY) 140 mmol/L (136-145); CREATININE 0.66 mg/dL (0.70-1.30); SODIUM 140 mmol/L (136-145); TOTAL PROTEIN 4.6 g/dL (6.4-8.2); eGFR NON BLACK RACES > 60 (>60)
[2021-05-06 05:16] LABS: PLATELET MORPHOLOGY COMMENT NORMAL (NORMAL)
[2021-05-06] MEDS: SOLU-Medrol 125 MG VIAL IVP SCH ×3 (05:20→21:02)
[2021-05-06] MEDS: FORTAZ or TAZICEF VIAL INJ 1 G in NS 100 ML IV 100 ML IV SCH ×3 (05:20→21:02)
[2021-05-06] MEDS: PERCOCET TAB 5/325 MG PO PRN ×3 (06:43→21:15)
--- NOTE | 2021-05-06 06:57 | RAD ---
HISTORYSBOSTUDYKUBCOMPARISONFe [facility] 2021FINDINGSSimilar degree and distribution of selective small-bowel dilatation in the upper abdomen with paucity of colon gas. No evidence for pneumatosis, developing mass or ascites. Post-CT contrast material noted in the urinary bladder.IMPRESSIONPersistent small-bowel dilatation consistent with obstruction, documented on recent abdomen CT examination.Electronically signed by: GUANAKITO SHERIFF (May 06, 2021 06:56:46)
--- NOTE | 2021-05-06 07:00 | RAD ---
HISTORYSOBSTUDYAP chestCOMPARISONFebruary 2021FINDINGSHeart size remains normal with stable position of right subclavian port. Persistent airspace involvement of both lower lobes partly obscuring the diaphragm surfaces. The upper lobes remain clear.IMPRESSIONPersistent bibasal airspace disease consistent with pneumonia/atelectasis.Electronically signed by: GUANAKITO SHERIFF (May 06, 2021 06:59:26)
[2021-05-06] MEDS: LOVENOX INJ 40 MG SYR SC SCH (07:59)
[2021-05-06] MEDS: LEVAQUIN PREMIX IV 500 MG 500 MG/100 ML BAG IV SCH (07:59)
[2021-05-06] MEDS: PROTONIX INJ 40 MG VIAL IVP SCH ×2 (08:00→20:30)
[2021-05-06] MEDS: FLONASE NASAL SPRAY ENOSTRIL SCH ×2 (08:00→20:30)
[2021-05-06] MEDS: DUONEB 0.5 MG/3 MG (3 mL) NEB SCH ×4 (09:13→20:38)
--- NOTE | 2021-05-06 09:22 | PCM.PROG ---
Progress Note - Progress Note for Day of Date of Exam: 05/06/21 - Subjective Subjective: WAS ADMITTED FOR TREATMENT OF SMALL BOWEL OBSTRUCTION, N/V, ABDOMINAL PAIN, AND PNEUMONIA. TODAY, HE IS ALERT AND ORIENTED, LYING IN BED ON MORNING ROUNDS. HE CONTINUES WITH COMPLAINTS OF MILD DIFFUSE ABDOMINAL PAIN, NAUSEA, AND SHORTNESS OF BREATH, AND COUGH. HE IS CURRENTLY ON NASAL CANNULA AT 2 LPM. SATURATIONS HAVE BEEN IN THE 90s THIS MORNING AND THROUGHOUT THE NIGHT WHILE ON OXYGEN. ON EXAMINATION, HEART IS REGULAR IN RATE AND RHYTHM. BILATERAL LUNGS NOTED WITH DIMINISHED LUNG SOUNDS THROUGHOUT. ABDOMEN IS ROUND, SOFT, AND NOTED WITH DIFFUSE TENDERNESS TO PALPATION. DECREASED BOWEL SOUNDS NOTED. HIS VITALS THIS MORNING ARE: 98.5-72-30-90%-125/60. LABS WERE OBTAINED. ABNORMAL LAB VALUES INCLUDE THE FOLLOWING: RBC 4.08, HGB 12.5, HCT 36.1, PLT COUNT 146, CHLORIDE 108, BUN 22, CREATININE 0.66, GLUCOSE 118, CALCIUM 7.8, AST 9, ALK PHOS 30, TOTAL PROTEIN 4.6, ALBUMIN 2.5. AN ABDOMEN/PELVIS CT WITH CONTRAST WAS OBTAINED YESTERDAY AND REVEALED: High-grade small bowel obstruction, source of obstruction and transition point is noted at the neck of the ventral abdominal wall hernia. Multiple loops of herniated small bowel and proximal colon within the ventral abdominal hernia with fluid within the hernia sac and dependent pelvis raises concern for developing ischemia. Surgical consultation is recommended. No free air or pneumatosis. Surgical consultation is recommended. Distal colonic diverticulosis without evidence of acute diverticulitis. Small sliding hiatal hernia. Fusiform dilatation of the infrarenal abdominal aorta measuring 3.3 cm in greatest dimension. Hepatic cysts. A CHEST CTA WAS OBTAINED AND REVEALED: Multifocal peribronchial consolidation within the right upper lobe is consistent with pneumonia. Moderate subsegmental atelectasis within the lingula, left lower lobe and right lower lobe. Small bilateral pleural effusions. Cardiomegaly with moderate calcified atherosclerotic diseaseof the coronary arteries. Ascending thoracic aorta is ectatic measuring 4.3 x 4.2 cm. No acute aortic syndrome. KUB WAS REPEATED THIS MORNING AND REVEALED: Persistent small-bowel dilatation consistent with obstruction, documented on recent abdomen CT examination. A CHEST XRAY WAS REPEATED AND REVEALED: Persistent bibasal airspace disease consistent with pneumonia/atelectasis. HE IS CURRENTLY RECEIVING NORMAL SALINE AT 125 ML/HR, LEVAQUIN 500MG IV DAILY, FORTAZ 1G IV Q8H, TORADOL 30MG IV Q6H PRN, DILAUDID 1MG IV Q4H PRN, DUONEBS QID, SOLU-MEDROL 80MG IV Q8H, PROTONIX 40MG IV BID, POTASSIUM AND MAGNESIUM PROTOCOL, AND HIS HOME MEDICATIONS OF PERCOCET, FLOMAX, COLACE, AND FLONASE WERE RESUMED. WE CONSULTED . HE WILL SEE PATIENT THIS MORNING. OTHERWISE, WE PLAN TO FOLLOW UP WITH AM LABS AND KUB AND CONTINUE TO MONITOR. TIME SPENT ON CLINICAL ASSESSMENT, REVIEWING LABS AND IMAGING, DECISION MAKING, AND DOCUMENTATION GREATER THAN 45 MINUTES. - Past Medical Family Social History Past Med/Fam/Surg Hx: No changes since H&P Allergies: Allergies No Known Drug Allergies Allergy (Verified 04/30/21 16:33) - Review of Systems ROS: No change since H&P - Vital Signs and I&O's Vital Signs: Temperature 98.5 F Pulse Rate [Left Brachial] 102 Pulse Rate 72 Respiratory Rate 30 Blood Pressure [Right Arm] 118/74 Blood Pressure 125/60 O2 Sat by Pulse Oximetry 90 Intake and Output: Intake & Output 05/03/21 05/04/21 05/05/21 05/06/21 11:59 11:59 11:59 11:59 Intake Total 2999 / 2999 3533 / 3533 2185 / 2185 1893 / 1893 Output Total 1250 / 1250 400 / 400 Balance 1749 / 1749 3133 / 3133 2185 / 2185 1893 / 1893 - Physical Exam Oriented: Normal Eyes: Normal Ear: Normal Nose: Normal Throat: Normal Respiratory: Generalized, Diminished Cardiovascular: Normal : Normal Auscultation: Bowel Sounds: Decreased Tenderness: Diffuse, Mild Skin: Normal Musculoskeletal: Normal Psychiatric: Normal Mood Description: Calm Affect: Normal Speech Pattern: Clear, Appropriate - Laboratory and Diagnostics Result Diagrams: 05/06/21 04:07 05/06/21 04:07 Labs: Laboratory WBC 6.1 X10^3/uL (3.6-10.0) 05/06/21 04:07 RBC 4.08 X10^6/uL (4.7-6.0) L 05/06/21 04:07 Hgb 12.5 g/dL (13.5-18.0) L 05/06/21 04:07 Hct 36.1 % (42.0-54.0) L 05/06/21 04:07 MCV 88.5 fL (80.0-100.0) 05/06/21 04:07 MCH 30.7 pg (27.0-34.0) 05/06/21 04:07 MCHC 34.6 g/dL (33.0-35.0) 05/06/21 04:07 RDW 14.1 % (11.6-16.5) 05/06/21 04:07 Plt Count 146 X10^3/uL (150.0-450.0) L 05/06/21 04:07 Plt Count Comment Decreased (ADEQUATE) 05/06/21 04:07 MPV 9.4 fL (7.4-11.0) 05/06/21 04:07 Neut % (Auto) 93.0 % (42.0-75.0) H 05/06/21 04:07 Lymph % (Auto) 3.9 % (21.0-51.0) L 05/06/21 04:07 [place] % (Auto) 3.0 % (0.0-13.0) 05/06/21 04:07 Eos % (Auto) 0.0 % (0.9-2.9) L 05/06/21 04:07 Baso % (Auto) 0.1 % (0.2-1.0) L 05/06/21 04:07 Neut # (Auto) 5.7 x10^3/uL (2.2-4.8) H 05/06/21 04:07 Lymph # (Auto) 0.2 X10^3/uL (1.3-2.9) L 05/06/21 04:07 [place] # (Auto) 0.2 x10^3/uL (0.3-0.8) L 05/06/21 04:07 Eos # (Auto) 0.0 x10^3/uL (0.0-0.2) 05/06/21 04:07 Baso # (Auto) 0.0 X10^3/uL (0.0-0.1) 05/06/21 04:07 Absolute Nucleated RBC 0.0 /100WBC 05/06/21 04:07 Total Counted 100 05/06/21 04:07 Neutrophils % (Manual) 93 % (39-76) H 05/06/21 04:07 Band Neutrophils % 2 % (0-10) 05/04/21 04:56 Lymphocytes % (Manual) 2 % (13-43) L 05/06/21 04:07 Monocytes % (Manual) 5 % (4-9) 05/06/21 04:07 Smudge Cells Few 05/05/21 04:17 Plt Morphology Comment Normal (NORMAL) 05/06/21 04:07 RBC Morphology Normal (NORMAL) 05/06/21 04:07 Sample Site Rr 05/05/21 09:30 ABG pH 7.450 (7.35-7.45) 05/05/21 09:30 ABG pCO2 34.0 mmHg (35.0-45.0) L 05/05/21 09:30 ABG pO2 61.0 mmHg (80.0-100.0) L 05/05/21 09:30 ABG HCO3 23.6 mmol/L (22-26) 05/05/21 09:30 ABG O2 Saturation 92.0 % (90-100) 05/05/21 09:30 ABG Base Excess 0.1 mmol/L (-2.0-2.0) 05/05/21 09:30 Alfie Test Pos 05/05/21 09:30 A-a Gradient 96.0 mmHg 05/05/21 09:30 FiO2 28.0 05/05/21 09:30 Blood Gas Comments Pt kirti well cdn 05/05/21 09:30 Sodium 140 mmol/L (136-145) 05/06/21 04:07 Corrected Sodium 140 mmol/L (136-145) 05/06/21 04:07 Potassium 3.6 mmol/L (3.5-5.1) 05/06/21 04:07 Chloride 108 mmol/L (98-107) H 05/06/21 04:07 Carbon Dioxide 24.2 mmol/L (21-32) 05/06/21 04:07 BUN 22 mg/dL (7-18) H 05/06/21 04:07 Creatinine 0.66 mg/dL (0.70-1.30) L 05/06/21 04:07 Est GFR (MDRD) Af Amer > 60 (>60) 05/06/21 04:07 Est GFR (MDRD) Non-Af > 60 (>60) 05/06/21 04:07 Glucose 118 mg/dL (65-99) H 05/06/21 04:07 Calcium 7.8 mg/dL (8.5-10.1) L 05/06/21 04:07 Corrected Calcium 9.0 mg/dL (8.5-10.1) 05/06/21 04:07 Magnesium 2.0 mg/dL (1.7-2.9) 05/05/21 04:17 Total Bilirubin 0.50 mg/dL (0.2-1.0) 05/06/21 04:07 AST 9 Units/L (15-37) L 05/06/21 04:07 ALT 18 Units/L (12-78) 05/06/21 04:07 Alkaline Phosphatase 30 Units/L (46-116) L 05/06/21 04:07 B-Natriuretic Peptide 83.7 pg/mL (0-79) H 05/04/21 04:56 Total Protein 4.6 g/dL (6.4-8.2) L 05/06/21 04:07 Albumin 2.5 g/dL (3.4-5.0) L 05/06/21 04:07 Globulin 2.1 g/dL (2.5-4.5) L 05/06/21 04:07 Albumin/Globulin Ratio 1.2 Ratio (1.1-2.1) 05/06/21 04:07 Amylase 11 Units/L (25-115) L 05/01/21 03:51 Lipase 27 Units/L (73-393) L 05/01/21 03:51 Specimen Type Catherized urine 04/30/21 23:03 Urine Color Charline (YELLOW) 04/30/21 23:03 Urine Appearance Clear (CLEAR) 04/30/21 23:03 Urine pH 7.0 (5.0 - 8.0) 04/30/21 23:03 Ur Specific [place] 1.015 (1.000-1.030) 04/30/21 23:03 Urine Protein 1+ (NEGATIVE) 04/30/21 23:03 Urine Glucose (UA) Negative (NEGATIVE) 04/30/21 23:03 Urine Ketones 4+ (NEGATIVE) 04/30/21 23:03 Urine Occult Blood 2+ (NEGATIVE) 04/30/21 23:03 Urine Nitrite Negative (NEGATIVE) 04/30/21 23:03 Urine Bilirubin Negative (NEGATIVE) 04/30/21 23:03 Urine Urobilinogen Normal (NORMAL) 04/30/21 23:03 Ur Leukocyte Esterase Negative (NEGATIVE) 04/30/21 23:03 Urine RBC None seen /HPF (0-3) 04/30/21 23:03 Urine WBC 3-5 /HPF (0-5) 04/30/21 23:03 Ur Squamous Epith Cells Negative /HPF (NEGATIVE) 04/30/21 23:03 Urine Bacteria Trace /HPF (NEGATIVE) 04/30/21 23:03 Ur Culture Indicated? No/not indicated 04/30/21 23:03 SARS-CoV-2 (PCR) Negative (NEGATIVE) 04/30/21 21:13 Influenza Type A (PCR) Negative (NEGATIVE) 04/30/21 21:13 Influenza Type B (PCR) Negative (NEGATIVE) 04/30/21 21:13 RSV (PCR) Negative (NEGATIVE) 04/30/21 21:13 - Plan (1) Small bowel obstruction Status: Acute Plan: NPO, NORMAL SALINE AT 125 ML/HR, LEVAQUIN 500MG IV DAILY, FORTAZ 1G IV Q8H, TORADOL 30MG IV Q6H PRN, DILAUDID 1MG IV Q4H PRN, DUONEBS QID, SOLU-MEDROL 80MG IV Q8H, PROTONIX 40MG IV BID, AND RESUME HIS PERCOCET, FLOMAX, COLACE, AND FLONASE. (2) Pneumonia Status: Acute Qualifiers: Pneumonia type: due to unspecified organism Laterality: bilateral Lung location: lower lobe of lung Qualified Code(s): J18.9 - Pneumonia, unspecified organism (3) Nausea and vomiting Status: Acute Qualifiers: Vomiting type: unspecified Qualified Code(s): R11.2 - Nausea with vomiting, unspecified (4) Abdominal pain Status: Chronic Qualifiers: Abdominal location: generalized Qualified Code(s): R10.84 - Generalized abdominal pain (5) Shortness of breath Status: Acute Plan: 02 AT 2 LPM, OBTAIN CHEST XRAY
[2021-05-06] MEDS: FLOMAX PO SCH ×2 (14:57→20:30)
[2021-05-06] MEDS: COLACE CAP 100 MG PO SCH (20:30)
[2021-05-07] MEDS: TORADOL 30 MG VIAL IVP PRN ×2 (00:53→08:07)
[2021-05-07] MEDS: PERCOCET TAB 5/325 MG PO PRN ×5 (03:19→23:28)
[2021-05-07] MEDS: NS 1,000 ML IV 1,000 ML IV SCH ×4 (03:19→20:00)
[2021-05-07] MEDS: ATIVAN TAB 0.5 MG PO SCH ×3 (03:19→20:54)
[2021-05-07 04:52] LABS: BASOPHILS % (AUTO) 0.1 % (0.2-1.0); HEMOGLOBIN 12.7 g/dL (13.5-18.0); LYMPHOCYTES # (AUTO) 0.3 X10^3/uL (1.3-2.9); LYMPHOCYTES % (AUTO) 3.5 % (21.0-51.0); MEAN CORPUSCULAR HEMOGLOBIN 30.5 pg (27.0-34.0); MEAN CORPUSCULAR HGB CONC 34.2 g/dL (33.0-35.0); MEAN CORPUSCULAR VOLUME 89.2 fL (80.0-100.0); MEAN PLATELET VOLUME 9.5 fL (7.4-11.0); MONOCYTES # (AUTO) 0.3 x10^3/uL (0.3-0.8); MONOCYTES % (AUTO) 4.1 % (0.0-13.0); NEUTROPHILS # (AUTO) 6.8 x10^3/uL (2.2-4.8); NEUTROPHILS % (AUTO) 92.3 % (42.0-75.0); RED BLOOD COUNT 4.15 X10^6/uL (4.7-6.0); RED CELL DISTRIBUTION WIDTH 14.1 % (11.6-16.5); WHITE BLOOD COUNT 7.4 X10^3/uL (3.6-10.0)
[2021-05-07 05:18] LABS: ALANINE AMINOTRANSFERASE 19 Units/L (12-78); ALBUMIN 2.6 g/dL (3.4-5.0); ALKALINE PHOSPHATASE 27 Units/L (46-116); ASPARTATE AMINO TRANSFERASE 10 Units/L (15-37); BLOOD UREA NITROGEN 22 mg/dL (7-18); CALCIUM 7.7 mg/dL (8.5-10.1); CHLORIDE 106 mmol/L (98-107); COR CA(FOR HYPOALB) 8.8 mg/dL (8.5-10.1); COR NA(FOR HYPERGLY) 140 mmol/L (136-145); SODIUM 140 mmol/L (136-145); TOTAL PROTEIN 4.8 g/dL (6.4-8.2); eGFR NON BLACK RACES > 60 (>60)
[2021-05-07] MEDS: SOLU-Medrol 125 MG VIAL IVP SCH ×3 (05:30→21:01)
[2021-05-07] MEDS: FORTAZ or TAZICEF VIAL INJ 1 G in NS 100 ML IV 100 ML IV SCH ×3 (05:31→21:01)
[2021-05-07 05:42] LABS: PLATELET MORPHOLOGY COMMENT NORMAL (NORMAL)
--- NOTE | 2021-05-07 07:43 | RAD ---
HISTORYSOBSTUDYCHEST, 1 [id number]/28/2022.TECHNIQUEAP view of the chestFINDINGSRight chest wall port with tip in good position. The right heart border is mostly silhouetted. Mediastinal contours appear normal. Similar appearing bibasilar airspace opacities. No new pneumothorax. Cannot exclude small pleural effusions.IMPRESSIONSimilar appearing bibasilar airspace opacities that may represent atelectasis or pneumonia. Stably elevated right hemidiaphragm.Electronically signed by: Phong Haney (May 07, 2021 07:41:53)
--- NOTE | 2021-05-07 07:59 | RAD ---
HISTORYSmall-bowel [id number]/28/2022 .br.br.br nonobstructive. Previously noted dilated small bowel no longer identified. No abnormal masses or abnormal calcifications are identified. Regional skeleton is osteopenic but intact.IMPRESSIONNonspecific, nonobstructive bowel gas pattern with resolution of the previously noted dilated small bowelElectronically signed by: TYRONE ROSARIO (May 07, 2021 07:58:12)
[2021-05-07] MEDS: LEVAQUIN PREMIX IV 500 MG 500 MG/100 ML BAG IV SCH (08:02)
[2021-05-07] MEDS: FLOMAX PO SCH ×2 (08:02→20:53)
[2021-05-07] MEDS: FLONASE NASAL SPRAY ENOSTRIL SCH ×2 (08:02→20:54)
[2021-05-07] MEDS: PROTONIX INJ 40 MG VIAL IVP SCH ×2 (08:02→20:55)
[2021-05-07] MEDS: ZOFRAN INJ 4 MG VIAL IVP PRN (08:08)
[2021-05-07] MEDS: DUONEB 0.5 MG/3 MG (3 mL) NEB SCH ×4 (08:25→21:02)
[2021-05-07] MEDS: LOVENOX INJ 40 MG SYR SC SCH (09:05)
--- NOTE | 2021-05-07 09:29 | DR.PROGNOT ---
Hospital Progress Notes - Progress Note for Day of: Progress Note Date: 05/07/21 - Chief Complaint Chief Complaint: c/o abdominal pain accross the upper abdomen .. no vomiting . still c/o nausea and fullness feeling . abdominal Xray showed improved obstruction .. CBC normal . afebrile .. - Past Medical Family Social History Past Med/Fam/Surg Hx: No changes since H&P Allergies: Allergies No Known Drug Allergies Allergy (Verified 04/30/21 16:33) - Review Of Systems ROS: No change since H&P - Vital Signs Vital Signs: Temperature 98.0 F Pulse Rate [Left Brachial] 102 Pulse Rate 94 Respiratory Rate 30 Blood Pressure [Right Arm] 118/74 Blood Pressure 120/74 O2 Sat by Pulse Oximetry 100 - Physical Exam Oriented: Normal Eyes: Normal Ear: Normal Nose: Normal Throat: Normal Respiratory: Generalized, Diminished Cardiovascular: Normal : Normal GI:Auscultation: Decreased GI:Palpation: Other (large incarcerated ventral hernia . non tender .. BS+) GI: Tenderness: Diffuse, Mild Skin: Normal Musculoskeletal: Normal Psychiatric: Normal Mood Description: Calm Affect: Normal Speech Pattern: Clear, Appropriate - Laboratory and Diagnostics Result Diagrams: 05/07/21 04:15 05/07/21 04:15 Labs: Laboratory WBC 7.4 X10^3/uL (3.6-10.0) 05/07/21 04:15 RBC 4.15 X10^6/uL (4.7-6.0) L 05/07/21 04:15 Hgb 12.7 g/dL (13.5-18.0) L 05/07/21 04:15 Hct 37.0 % (42.0-54.0) L 05/07/21 04:15 MCV 89.2 fL (80.0-100.0) 05/07/21 04:15 MCH 30.5 pg (27.0-34.0) 05/07/21 04:15 MCHC 34.2 g/dL (33.0-35.0) 05/07/21 04:15 RDW 14.1 % (11.6-16.5) 05/07/21 04:15 Plt Count 168 X10^3/uL (150.0-450.0) 05/07/21 04:15 Plt Count Comment Adequate (ADEQUATE) 05/07/21 04:15 MPV 9.5 fL (7.4-11.0) 05/07/21 04:15 Neut % (Auto) 92.3 % (42.0-75.0) H 05/07/21 04:15 Lymph % (Auto) 3.5 % (21.0-51.0) L 05/07/21 04:15 [place] % (Auto) 4.1 % (0.0-13.0) 05/07/21 04:15 Eos % (Auto) 0.0 % (0.9-2.9) L 05/07/21 04:15 Baso % (Auto) 0.1 % (0.2-1.0) L 05/07/21 04:15 Neut # (Auto) 6.8 x10^3/uL (2.2-4.8) H 05/07/21 04:15 Lymph # (Auto) 0.3 X10^3/uL (1.3-2.9) L 05/07/21 04:15 [place] # (Auto) 0.3 x10^3/uL (0.3-0.8) 05/07/21 04:15 Eos # (Auto) 0.0 x10^3/uL (0.0-0.2) 05/07/21 04:15 Baso # (Auto) 0.0 X10^3/uL (0.0-0.1) 05/07/21 04:15 Absolute Nucleated RBC 0.0 /100WBC 05/07/21 04:15 Total Counted 100 05/07/21 04:15 Neutrophils % (Manual) 92 % (39-76) H 05/07/21 04:15 Band Neutrophils % 2 % (0-10) 05/04/21 04:56 Lymphocytes % (Manual) 5 % (13-43) L 05/07/21 04:15 Monocytes % (Manual) 3 % (4-9) L 05/07/21 04:15 Smudge Cells Few 05/05/21 04:17 Plt Morphology Comment Normal (NORMAL) 05/07/21 04:15 RBC Morphology Normal (NORMAL) 05/07/21 04:15 Sample Site Rr 05/05/21 09:30 ABG pH 7.450 (7.35-7.45) 05/05/21 09:30 ABG pCO2 34.0 mmHg (35.0-45.0) L 05/05/21 09:30 ABG pO2 61.0 mmHg (80.0-100.0) L 05/05/21 09:30 ABG HCO3 23.6 mmol/L (22-26) 05/05/21 09:30 ABG O2 Saturation 92.0 % (90-100) 05/05/21 09:30 ABG Base Excess 0.1 mmol/L (-2.0-2.0) 05/05/21 09:30 Alfie Test Pos 05/05/21 09:30 A-a Gradient 96.0 mmHg 05/05/21 09:30 FiO2 28.0 05/05/21 09:30 Blood Gas Comments Pt kirti well cdn 05/05/21 09:30 Sodium 140 mmol/L (136-145) 05/07/21 04:15 Corrected Sodium 140 mmol/L (136-145) 05/07/21 04:15 Potassium 3.7 mmol/L (3.5-5.1) 05/07/21 04:15 Chloride 106 mmol/L (98-107) 05/07/21 04:15 Carbon Dioxide 26.0 mmol/L (21-32) 05/07/21 04:15 BUN 22 mg/dL (7-18) H 05/07/21 04:15 Creatinine 0.70 mg/dL (0.70-1.30) 05/07/21 04:15 Est GFR (MDRD) Af Amer > 60 (>60) 05/07/21 04:15 Est GFR (MDRD) Non-Af > 60 (>60) 05/07/21 04:15 Glucose 112 mg/dL (65-99) H 05/07/21 04:15 Calcium 7.7 mg/dL (8.5-10.1) L 05/07/21 04:15 Corrected Calcium 8.8 mg/dL (8.5-10.1) 05/07/21 04:15 Magnesium 2.0 mg/dL (1.7-2.9) 05/05/21 04:17 Total Bilirubin 0.50 mg/dL (0.2-1.0) 05/07/21 04:15 AST 10 Units/L (15-37) L 05/07/21 04:15 ALT 19 Units/L (12-78) 05/07/21 04:15 Alkaline Phosphatase 27 Units/L (46-116) L 05/07/21 04:15 B-Natriuretic Peptide 83.7 pg/mL (0-79) H 05/04/21 04:56 Total Protein 4.8 g/dL (6.4-8.2) L 05/07/21 04:15 Albumin 2.6 g/dL (3.4-5.0) L 05/07/21 04:15 Globulin 2.2 g/dL (2.5-4.5) L 05/07/21 04:15 Albumin/Globulin Ratio 1.2 Ratio (1.1-2.1) 05/07/21 04:15 Amylase 11 Units/L (25-115) L 05/01/21 03:51 Lipase 27 Units/L (73-393) L 05/01/21 03:51 Specimen Type Catherized urine 04/30/21 23:03 Urine Color Charline (YELLOW) 04/30/21 23:03 Urine Appearance Clear (CLEAR) 04/30/21 23:03 Urine pH 7.0 (5.0 - 8.0) 04/30/21 23:03 Ur Specific [place] 1.015 (1.000-1.030) 04/30/21 23:03 Urine Protein 1+ (NEGATIVE) 04/30/21 23:03 Urine Glucose (UA) Negative (NEGATIVE) 04/30/21 23:03 Urine Ketones 4+ (NEGATIVE) 04/30/21 23:03 Urine Occult Blood 2+ (NEGATIVE) 04/30/21 23:03 Urine Nitrite Negative (NEGATIVE) 04/30/21 23:03 Urine Bilirubin Negative (NEGATIVE) 04/30/21 23:03 Urine Urobilinogen Normal (NORMAL) 04/30/21 23:03 Ur Leukocyte Esterase Negative (NEGATIVE) 04/30/21 23:03 Urine RBC None seen /HPF (0-3) 04/30/21 23:03 Urine WBC 3-5 /HPF (0-5) 04/30/21 23:03 Ur Squamous Epith Cells Negative /HPF (NEGATIVE) 04/30/21 23:03 Urine Bacteria Trace /HPF (NEGATIVE) 04/30/21 23:03 Ur Culture Indicated? No/not indicated 04/30/21 23:03 SARS-CoV-2 (PCR) Negative (NEGATIVE) 04/30/21 21:13 Influenza Type A (PCR) Negative (NEGATIVE) 04/30/21 21:13 Influenza Type B (PCR) Negative (NEGATIVE) 04/30/21 21:13 RSV (PCR) Negative (NEGATIVE) 04/30/21 21:13 - Assessment and Plan 1: resolving SBO . large incarcerated ventral hernia . pneumonia . to advance diet todat . same ABT .. - Problem Patient Problems: Patient Problems Small bowel obstruction (Acute) K56.609 Nausea and vomiting (Acute) R11.2 Shortness of breath (Acute) R06.02 Pneumonia (Acute) J18.9 Abdominal pain (Chronic) R10.9
[2021-05-07] MEDS: COLACE CAP 100 MG PO SCH (20:53)
[2021-05-07] MEDS: MILK OF MAGNESIA PO SCH (21:01)
[2021-05-08] MEDS: ATIVAN TAB 0.5 MG PO SCH ×3 (03:44→20:10)
[2021-05-08] MEDS: PERCOCET TAB 5/325 MG PO PRN ×5 (03:44→23:35)
[2021-05-08] MEDS: FORTAZ or TAZICEF VIAL INJ 1 G in NS 100 ML IV 100 ML IV SCH ×3 (05:10→22:00)
[2021-05-08] MEDS: SOLU-Medrol 125 MG VIAL IVP SCH ×3 (05:10→22:00)
[2021-05-08 05:21] LABS: BASOPHILS % (AUTO) 0.2 % (0.2-1.0); HEMATOCRIT 40.8 % (42.0-54.0); HEMOGLOBIN 14.1 g/dL (13.5-18.0); LYMPHOCYTES # (AUTO) 0.3 X10^3/uL (1.3-2.9); LYMPHOCYTES % (AUTO) 3.9 % (21.0-51.0); MEAN CORPUSCULAR HEMOGLOBIN 30.8 pg (27.0-34.0); MEAN CORPUSCULAR HGB CONC 34.6 g/dL (33.0-35.0); MEAN PLATELET VOLUME 9.5 fL (7.4-11.0); MONOCYTES # (AUTO) 0.5 x10^3/uL (0.3-0.8); MONOCYTES % (AUTO) 6.1 % (0.0-13.0); NEUTROPHILS # (AUTO) 7.4 x10^3/uL (2.2-4.8); NEUTROPHILS % (AUTO) 89.8 % (42.0-75.0); RED BLOOD COUNT 4.59 X10^6/uL (4.7-6.0); RED CELL DISTRIBUTION WIDTH 14.3 % (11.6-16.5); WHITE BLOOD COUNT 8.3 X10^3/uL (3.6-10.0)
[2021-05-08 05:33] LABS: ALANINE AMINOTRANSFERASE 18 Units/L (12-78); ALBUMIN 2.7 g/dL (3.4-5.0); ALKALINE PHOSPHATASE 29 Units/L (46-116); ASPARTATE AMINO TRANSFERASE 12 Units/L (15-37); BLOOD UREA NITROGEN 15 mg/dL (7-18); CALCIUM 7.9 mg/dL (8.5-10.1); CARBON DIOXIDE 29.8 mmol/L (21-32); CHLORIDE 104 mmol/L (98-107); COR CA(FOR HYPOALB) 8.9 mg/dL (8.5-10.1); COR NA(FOR HYPERGLY) 138 mmol/L (136-145); CREATININE 0.74 mg/dL (0.70-1.30); SODIUM 138 mmol/L (136-145); eGFR NON BLACK RACES > 60 (>60)
--- NOTE | 2021-05-08 07:22 | RAD ---
HISTORYShortness of breathSTUDYChest AP [id number]/01/2022FINDINGSPati ent is rotated slightly to the left. There is a right-sided PICC line in good position. Heart size is normal. Aorta is calcified. Radha are normal. Right basilar and right perihilar subsegmental atelectasis present no definite right lung infiltrates. The left lung is clear with the exception of some increased density in the retrocardiac area of the left lower lobe obscuring the left hemidiaphragm this could represent infiltrate or volume loss and is unchanged. No pleural effusion or pneumothorax. Bony thorax is unremarkable.IMPRESSIONNo change right basilar and right perihilar subsegmental atelectasisNo change increased density retrocardiac area left lower lobe obscuring the medial left hemidiaphragm on the bases either of atelectasis or infiltrate or combination.Electronically signed by: TYRONE ROSARIO (May 08, 2021 07:21:53)
[2021-05-08] MEDS: DUONEB 0.5 MG/3 MG (3 mL) NEB SCH ×4 (08:20→20:44)
[2021-05-08] MEDS: LEVAQUIN PREMIX IV 500 MG 500 MG/100 ML BAG IV SCH (08:49)
[2021-05-08] MEDS: MILK OF MAGNESIA PO SCH ×2 (08:49→20:10)
[2021-05-08] MEDS: FLOMAX PO SCH ×2 (08:49→20:10)
[2021-05-08] MEDS: FLONASE NASAL SPRAY ENOSTRIL SCH ×2 (08:49→20:10)
[2021-05-08] MEDS: PROTONIX INJ 40 MG VIAL IVP SCH ×2 (08:49→20:10)
[2021-05-08] MEDS: LOVENOX INJ 40 MG SYR SC SCH (08:50)
--- NOTE | 2021-05-08 09:45 | PCM.PROG ---
Progress Note - Progress Note for Day of Date of Exam: 05/07/21 - Subjective Subjective: WAS ADMITTED FOR TREATMENT OF SMALL BOWEL OBSTRUCTION, INCARCERATED VENTRAL HERNIA, NAUSEA, ABDOMINAL PAIN, AND PNEUMONIA. TODAY, HE IS ALERT AND ORIENTED, LYING IN BED ON MORNING ROUNDS. HE CONTINUES WITH COMPLAINTS OF MILD DIFFUSE ABDOMINAL PAIN TODAY. ABDOMINAL PAIN IS DIFFUSE. HE IS CURRENTLY ON NASAL CANNULA AT 2 LPM. SATURATIONS HAVE BEEN IN THE 90s THIS MORNING AND THROUGHOUT THE NIGHT WHILE ON OXYGEN. ON EXAMINATION, HEART IS REGULAR IN RATE AND RHYTHM. BILATERAL LUNGS NOTED WITH DIMINISHED LUNG SOUNDS THROUGHOUT. ABDOMEN IS ROUND, SOFT, AND NOTED WITH DIFFUSE TENDERNESS TO PALPATION. DECREASED BOWEL SOUNDS NOTED. HIS VITALS THIS MORNING ARE: 98.3-93-24-90%-120/74. LABS WERE OBTAINED. ABNORMAL LAB VALUES INCLUDE THE FOLLOWING: RBC 4.15, HGB 12.7, HCT 37.0, BUN 22, GLUCOSE 112, CALCIUM 7.7, AST 10, ALK PHOS 27, TOTAL PROTEIN 4.8, ALBUMIN 2.6. A CHEST XRAY WAS REPEATED AND REVEALED: Similar appearing bibasilar airspace opacities that may represent atelectasis or pneumonia. Stably elevated right hemidiaphragm. KUB REVEALED: Nonspecific, nonobstructive bowel gas pattern with resolution of the previously noted dilated small bowel. HE IS CURRENTLY RECEIVING NORMAL SALINE AT 125 ML/HR, LEVAQUIN 500MG IV DAILY, FORTAZ 1G IV Q8H, TORADOL 30MG IV Q6H PRN, DILAUDID 1MG IV Q4H PRN, DUONEBS QID, SOLU-MEDROL 80MG IV Q8H, PROTONIX 40MG IV BID, POTASSIUM AND MAGNESIUM PROTOCOL, AND HIS HOME MEDICATIONS OF PERCOCET, FLOMAX, COLACE, AND FLONASE WERE RESUMED. HAS CONSULTED WITH PATIENT AND SUGGEST THAT WE CONTINUE TO MONITOR AT THIS TIME WITHOUT SURGICAL INTERVENTION. WE PLAN TO FOLLOW UP WITH AM LABS AND KUB AND CONTINUE TO MONITOR. TIME SPENT ON CLINICAL ASSESSMENT, REVIEWING LABS AND IMAGING, DECISION MAKING, AND DOCUMENTATION GREATER THAN 45 MINUTES. - Past Medical Family Social History Past Med/Fam/Surg Hx: No changes since H&P Allergies: Allergies No Known Drug Allergies Allergy (Verified 04/30/21 16:33) - Review of Systems ROS: No change since H&P - Vital Signs and I&O's Vital Signs: Temperature 98.3 F Pulse Rate [Left Brachial] 102 Pulse Rate 120 Respiratory Rate 32 Blood Pressure [Right Arm] 118/74 Blood Pressure 116/71 O2 Sat by Pulse Oximetry 90 Intake and Output: Intake & Output 05/05/21 05/06/21 05/07/21 05/08/21 11:59 11:59 11:59 11:59 Intake Total 218 / 218 1893 / 1893 218 / 218 2671 / 2671 Balance 218 / 218 189 / 189 218 / 218 267 / 2671 - Physical Exam Oriented: Normal Eyes: Normal Ear: Normal Nose: Normal Throat: Normal Respiratory: Generalized, Diminished Cardiovascular: Normal : Normal Auscultation: Bowel Sounds: Decreased Palpation: Normal Tenderness: Diffuse, Mild Skin: Normal Musculoskeletal: Normal Psychiatric: Normal Mood Description: Calm Affect: Normal Speech Pattern: Clear, Appropriate - Laboratory and Diagnostics Result Diagrams: 05/08/21 04:53 05/08/21 04:53 Labs: 05/05/21 16:14 Blood Blood Culture - Preliminary 05/05/21 16:00 Blood Blood Culture - Preliminary Laboratory WBC 8.3 X10^3/uL (3.6-10.0) 05/08/21 04:53 RBC 4.59 X10^6/uL (4.7-6.0) L 05/08/21 04:53 Hgb 14.1 g/dL (13.5-18.0) 05/08/21 04:53 Hct 40.8 % (42.0-54.0) L 05/08/21 04:53 MCV 89.0 fL (80.0-100.0) 05/08/21 04:53 MCH 30.8 pg (27.0-34.0) 05/08/21 04:53 MCHC 34.6 g/dL (33.0-35.0) 05/08/21 04:53 RDW 14.3 % (11.6-16.5) 05/08/21 04:53 Plt Count 166 X10^3/uL (150.0-450.0) 05/08/21 04:53 Plt Count Comment Adequate (ADEQUATE) 05/07/21 04:15 MPV 9.5 fL (7.4-11.0) 05/08/21 04:53 Neut % (Auto) 89.8 % (42.0-75.0) H 05/08/21 04:53 Lymph % (Auto) 3.9 % (21.0-51.0) L 05/08/21 04:53 [place] % (Auto) 6.1 % (0.0-13.0) 05/08/21 04:53 Eos % (Auto) 0.0 % (0.9-2.9) L 05/08/21 04:53 Baso % (Auto) 0.2 % (0.2-1.0) 05/08/21 04:53 Neut # (Auto) 7.4 x10^3/uL (2.2-4.8) H 05/08/21 04:53 Lymph # (Auto) 0.3 X10^3/uL (1.3-2.9) L 05/08/21 04:53 [place] # (Auto) 0.5 x10^3/uL (0.3-0.8) 05/08/21 04:53 Eos # (Auto) 0.0 x10^3/uL (0.0-0.2) 05/08/21 04:53 Baso # (Auto) 0.0 X10^3/uL (0.0-0.1) 05/08/21 04:53 Absolute Nucleated RBC 0.0 /100WBC 05/08/21 04:53 Total Counted 100 05/07/21 04:15 Neutrophils % (Manual) 92 % (39-76) H 05/07/21 04:15 Band Neutrophils % 2 % (0-10) 05/04/21 04:56 Lymphocytes % (Manual) 5 % (13-43) L 05/07/21 04:15 Monocytes % (Manual) 3 % (4-9) L 05/07/21 04:15 Smudge Cells Few 05/05/21 04:17 Plt Morphology Comment Normal (NORMAL) 05/07/21 04:15 RBC Morphology Normal (NORMAL) 05/07/21 04:15 Sample Site Rr 05/05/21 09:30 ABG pH 7.450 (7.35-7.45) 05/05/21 09:30 ABG pCO2 34.0 mmHg (35.0-45.0) L 05/05/21 09:30 ABG pO2 61.0 mmHg (80.0-100.0) L 05/05/21 09:30 ABG HCO3 23.6 mmol/L (22-26) 05/05/21 09:30 ABG O2 Saturation 92.0 % (90-100) 05/05/21 09:30 ABG Base Excess 0.1 mmol/L (-2.0-2.0) 05/05/21 09:30 Alfie Test Pos 05/05/21 09:30 A-a Gradient 96.0 mmHg 05/05/21 09:30 FiO2 28.0 05/05/21 09:30 Blood Gas Comments Pt kirti well cdn 05/05/21 09:30 Sodium 138 mmol/L (136-145) 05/08/21 04:53 Corrected Sodium 138 mmol/L (136-145) 05/08/21 04:53 Potassium 3.9 mmol/L (3.5-5.1) 05/08/21 04:53 Chloride 104 mmol/L (98-107) 05/08/21 04:53 Carbon Dioxide 29.8 mmol/L (21-32) 05/08/21 04:53 BUN 15 mg/dL (7-18) 05/08/21 04:53 Creatinine 0.74 mg/dL (0.70-1.30) 05/08/21 04:53 Est GFR (MDRD) Af Amer > 60 (>60) 05/08/21 04:53 Est GFR (MDRD) Non-Af > 60 (>60) 05/08/21 04:53 Glucose 118 mg/dL (65-99) H 05/08/21 04:53 Calcium 7.9 mg/dL (8.5-10.1) L 05/08/21 04:53 Corrected Calcium 8.9 mg/dL (8.5-10.1) 05/08/21 04:53 Magnesium 2.0 mg/dL (1.7-2.9) 05/05/21 04:17 Total Bilirubin 0.50 mg/dL (0.2-1.0) 05/08/21 04:53 AST 12 Units/L (15-37) L 05/08/21 04:53 ALT 18 Units/L (12-78) 05/08/21 04:53 Alkaline Phosphatase 29 Units/L (46-116) L 05/08/21 04:53 B-Natriuretic Peptide 83.7 pg/mL (0-79) H 05/04/21 04:56 Total Protein 5.0 g/dL (6.4-8.2) L 05/08/21 04:53 Albumin 2.7 g/dL (3.4-5.0) L 05/08/21 04:53 Globulin 2.3 g/dL (2.5-4.5) L 05/08/21 04:53 Albumin/Globulin Ratio 1.2 Ratio (1.1-2.1) 05/08/21 04:53 Amylase 11 Units/L (25-115) L 05/01/21 03:51 Lipase 27 Units/L (73-393) L 05/01/21 03:51 Specimen Type Catherized urine 04/30/21 23:03 Urine Color Charline (YELLOW) 04/30/21 23:03 Urine Appearance Clear (CLEAR) 04/30/21 23:03 Urine pH 7.0 (5.0 - 8.0) 04/30/21 23:03 Ur Specific [place] 1.015 (1.000-1.030) 04/30/21 23:03 Urine Protein 1+ (NEGATIVE) 04/30/21 23:03 Urine Glucose (UA) Negative (NEGATIVE) 04/30/21 23:03 Urine Ketones 4+ (NEGATIVE) 04/30/21 23:03 Urine Occult Blood 2+ (NEGATIVE) 04/30/21 23:03 Urine Nitrite Negative (NEGATIVE) 04/30/21 23:03 Urine Bilirubin Negative (NEGATIVE) 04/30/21 23:03 Urine Urobilinogen Normal (NORMAL) 04/30/21 23:03 Ur Leukocyte Esterase Negative (NEGATIVE) 04/30/21 23:03 Urine RBC None seen /HPF (0-3) 04/30/21 23:03 Urine WBC 3-5 /HPF (0-5) 04/30/21 23:03 Ur Squamous Epith Cells Negative /HPF (NEGATIVE) 04/30/21 23:03 Urine Bacteria Trace /HPF (NEGATIVE) 04/30/21 23:03 Ur Culture Indicated? No/not indicated 04/30/21 23:03 SARS-CoV-2 (PCR) Negative (NEGATIVE) 04/30/21 21:13 Influenza Type A (PCR) Negative (NEGATIVE) 04/30/21 21:13 Influenza Type B (PCR) Negative (NEGATIVE) 04/30/21 21:13 RSV (PCR) Negative (NEGATIVE) 04/30/21 21:13 - Plan (1) Small bowel obstruction Status: Acute Plan: NPO, NORMAL SALINE AT 125 ML/HR, LEVAQUIN 500MG IV DAILY, FORTAZ 1G IV Q8H, TORADOL 30MG IV Q6H PRN, DILAUDID 1MG IV Q4H PRN, DUONEBS QID, SOLU-MEDROL 80MG IV Q8H, PROTONIX 40MG IV BID, AND RESUME HIS PERCOCET, FLOMAX, COLACE, AND FLONASE. (2) Pneumonia Status: Acute Qualifiers: Pneumonia type: due to unspecified organism Laterality: bilateral Lung location: lower lobe of lung Qualified Code(s): J18.9 - Pneumonia, unspecified organism (3) Nausea and vomiting Status: Acute Qualifiers: Vomiting type: unspecified Qualified Code(s): R11.2 - Nausea with vomiting, unspecified (4) Abdominal pain Status: Chronic Qualifiers: Abdominal location: generalized Qualified Code(s): R10.84 - Generalized abdominal pain (5) Shortness of breath Status: Acute Plan: 02 AT 2 LPM, OBTAIN CHEST XRAY
--- NOTE | 2021-05-08 09:50 | PCM.PROG ---
Progress Note - Progress Note for Day of Date of Exam: 05/08/21 - Subjective Subjective: WAS ADMITTED FOR TREATMENT OF SMALL BOWEL OBSTRUCTION, INCARCERATED VENTRAL HERNIA, NAUSEA, ABDOMINAL PAIN, AND PNEUMONIA. TODAY, HE IS ALERT AND ORIENTED, LYING IN BED ON MORNING ROUNDS. HE CONTINUES WITH COMPLAINTS OF MILD DIFFUSE ABDOMINAL PAIN TODAY. ABDOMINAL PAIN IS DIFFUSE. HE IS CURRENTLY ON NASAL CANNULA AT 2 LPM. SATURATIONS HAVE BEEN IN THE 90s THIS MORNING AND THROUGHOUT THE NIGHT WHILE ON OXYGEN. ON EXAMINATION, HEART IS REGULAR IN RATE AND RHYTHM. BILATERAL LUNGS NOTED WITH DIMINISHED LUNG SOUNDS THROUGHOUT. ABDOMEN IS ROUND, SOFT, AND NOTED WITH DIFFUSE TENDERNESS TO PALPATION. DECREASED BOWEL SOUNDS NOTED. HIS VITALS THIS MORNING ARE: 98.3-95-24-98%-119/68. LABS WERE OBTAINED. ABNORMAL LAB VALUES INCLUDE THE FOLLOWING: RBC 4.59, HCT 40.8, GLUCOSE 118, CALCIUM 7.9, AST 12, ALK PHOS 29, TOTAL PROTEIN 5.0, ALBUMIN 2.7. A CHEST XRAY WAS REPEATED AND REVEALED: No change right basilar and right perihilar subsegmental atelectasis. No change increased density retrocardiac area left lower lobe obscuring the medial left hemidiaphragm on the bases either of atelectasis or infiltrate or combination. HE IS CURRENTLY RECEIVING NORMAL SALINE AT 125 ML/HR, LEVAQUIN 500MG IV DAILY, FORTAZ 1G IV Q8H, TORADOL 30MG IV Q6H PRN, DILAUDID 1MG IV Q4H PRN, DUONEBS QID, SOLU-MEDROL 80MG IV Q8H, PROTONIX 40MG IV BID, POTASSIUM AND MAGNESIUM PROTOCOL, AND HIS HOME MEDICATIONS OF PERCOCET, FLOMAX, COLACE, AND FLONASE WERE RESUMED. HAS CONSULTED WITH PATIENT AND SUGGEST THAT WE CONTINUE TO MONITOR AT THIS TIME WITHOUT SURGICAL INTERVENTION. WE PLAN TO FOLLOW UP WITH AM LABS AND KUB AND CONTINUE TO MONITOR. TIME SPENT ON CLINICAL ASSESSMENT, REVIEWING LABS AND IMAGING, DECISION MAKING, AND DOCUMENTATION GREATER THAN 45 MINUTES. - Past Medical Family Social History Past Med/Fam/Surg Hx: No changes since H&P Allergies: Allergies No Known Drug Allergies Allergy (Verified 04/30/21 16:33) - Review of Systems ROS: No change since H&P - Vital Signs and I&O's Vital Signs: Temperature 98.3 F Pulse Rate [Left Brachial] 102 Pulse Rate 120 Respiratory Rate 18 Blood Pressure [Right Arm] 118/74 Blood Pressure 116/71 O2 Sat by Pulse Oximetry 90 Intake and Output: Intake & Output 05/05/21 05/06/21 05/07/21 05/08/21 11:59 11:59 11:59 11:59 Intake Total 2185 / 2185 1893 / 1893 2182 / 2182 2671 / 2671 Balance 2185 / 2185 1893 / 1893 218 / 2182 2671 / 2671 - Physical Exam Oriented: Normal Eyes: Normal Ear: Normal Nose: Normal Throat: Normal Respiratory: Generalized, Diminished Cardiovascular: Normal : Normal Auscultation: Bowel Sounds: Decreased Palpation: Normal Tenderness: Diffuse, Mild Skin: Normal Musculoskeletal: Normal Psychiatric: Normal Mood Description: Calm Affect: Normal Speech Pattern: Clear, Appropriate - Laboratory and Diagnostics Result Diagrams: 05/08/21 04:53 05/08/21 04:53 Labs: 05/05/21 16:14 Blood Blood Culture - Preliminary 05/05/21 16:00 Blood Blood Culture - Preliminary Laboratory WBC 8.3 X10^3/uL (3.6-10.0) 05/08/21 04:53 RBC 4.59 X10^6/uL (4.7-6.0) L 05/08/21 04:53 Hgb 14.1 g/dL (13.5-18.0) 05/08/21 04:53 Hct 40.8 % (42.0-54.0) L 05/08/21 04:53 MCV 89.0 fL (80.0-100.0) 05/08/21 04:53 MCH 30.8 pg (27.0-34.0) 05/08/21 04:53 MCHC 34.6 g/dL (33.0-35.0) 05/08/21 04:53 RDW 14.3 % (11.6-16.5) 05/08/21 04:53 Plt Count 166 X10^3/uL (150.0-450.0) 05/08/21 04:53 Plt Count Comment Adequate (ADEQUATE) 05/07/21 04:15 MPV 9.5 fL (7.4-11.0) 05/08/21 04:53 Neut % (Auto) 89.8 % (42.0-75.0) H 05/08/21 04:53 Lymph % (Auto) 3.9 % (21.0-51.0) L 05/08/21 04:53 [place] % (Auto) 6.1 % (0.0-13.0) 05/08/21 04:53 Eos % (Auto) 0.0 % (0.9-2.9) L 05/08/21 04:53 Baso % (Auto) 0.2 % (0.2-1.0) 05/08/21 04:53 Neut # (Auto) 7.4 x10^3/uL (2.2-4.8) H 05/08/21 04:53 Lymph # (Auto) 0.3 X10^3/uL (1.3-2.9) L 05/08/21 04:53 [place] # (Auto) 0.5 x10^3/uL (0.3-0.8) 05/08/21 04:53 Eos # (Auto) 0.0 x10^3/uL (0.0-0.2) 05/08/21 04:53 Baso # (Auto) 0.0 X10^3/uL (0.0-0.1) 05/08/21 04:53 Absolute Nucleated RBC 0.0 /100WBC 05/08/21 04:53 Total Counted 100 05/07/21 04:15 Neutrophils % (Manual) 92 % (39-76) H 05/07/21 04:15 Band Neutrophils % 2 % (0-10) 05/04/21 04:56 Lymphocytes % (Manual) 5 % (13-43) L 05/07/21 04:15 Monocytes % (Manual) 3 % (4-9) L 05/07/21 04:15 Smudge Cells Few 05/05/21 04:17 Plt Morphology Comment Normal (NORMAL) 05/07/21 04:15 RBC Morphology Normal (NORMAL) 05/07/21 04:15 Sample Site Rr 05/05/21 09:30 ABG pH 7.450 (7.35-7.45) 05/05/21 09:30 ABG pCO2 34.0 mmHg (35.0-45.0) L 05/05/21 09:30 ABG pO2 61.0 mmHg (80.0-100.0) L 05/05/21 09:30 ABG HCO3 23.6 mmol/L (22-26) 05/05/21 09:30 ABG O2 Saturation 92.0 % (90-100) 05/05/21 09:30 ABG Base Excess 0.1 mmol/L (-2.0-2.0) 05/05/21 09:30 Alfie Test Pos 05/05/21 09:30 A-a Gradient 96.0 mmHg 05/05/21 09:30 FiO2 28.0 05/05/21 09:30 Blood Gas Comments Pt kirti well cdn 05/05/21 09:30 Sodium 138 mmol/L (136-145) 05/08/21 04:53 Corrected Sodium 138 mmol/L (136-145) 05/08/21 04:53 Potassium 3.9 mmol/L (3.5-5.1) 05/08/21 04:53 Chloride 104 mmol/L (98-107) 05/08/21 04:53 Carbon Dioxide 29.8 mmol/L (21-32) 05/08/21 04:53 BUN 15 mg/dL (7-18) 05/08/21 04:53 Creatinine 0.74 mg/dL (0.70-1.30) 05/08/21 04:53 Est GFR (MDRD) Af Amer > 60 (>60) 05/08/21 04:53 Est GFR (MDRD) Non-Af > 60 (>60) 05/08/21 04:53 Glucose 118 mg/dL (65-99) H 05/08/21 04:53 Calcium 7.9 mg/dL (8.5-10.1) L 05/08/21 04:53 Corrected Calcium 8.9 mg/dL (8.5-10.1) 05/08/21 04:53 Magnesium 2.0 mg/dL (1.7-2.9) 05/05/21 04:17 Total Bilirubin 0.50 mg/dL (0.2-1.0) 05/08/21 04:53 AST 12 Units/L (15-37) L 05/08/21 04:53 ALT 18 Units/L (12-78) 05/08/21 04:53 Alkaline Phosphatase 29 Units/L (46-116) L 05/08/21 04:53 B-Natriuretic Peptide 83.7 pg/mL (0-79) H 05/04/21 04:56 Total Protein 5.0 g/dL (6.4-8.2) L 05/08/21 04:53 Albumin 2.7 g/dL (3.4-5.0) L 05/08/21 04:53 Globulin 2.3 g/dL (2.5-4.5) L 05/08/21 04:53 Albumin/Globulin Ratio 1.2 Ratio (1.1-2.1) 05/08/21 04:53 Amylase 11 Units/L (25-115) L 05/01/21 03:51 Lipase 27 Units/L (73-393) L 05/01/21 03:51 Specimen Type Catherized urine 04/30/21 23:03 Urine Color Charline (YELLOW) 04/30/21 23:03 Urine Appearance Clear (CLEAR) 04/30/21 23:03 Urine pH 7.0 (5.0 - 8.0) 04/30/21 23:03 Ur Specific [place] 1.015 (1.000-1.030) 04/30/21 23:03 Urine Protein 1+ (NEGATIVE) 04/30/21 23:03 Urine Glucose (UA) Negative (NEGATIVE) 04/30/21 23:03 Urine Ketones 4+ (NEGATIVE) 04/30/21 23:03 Urine Occult Blood 2+ (NEGATIVE) 04/30/21 23:03 Urine Nitrite Negative (NEGATIVE) 04/30/21 23:03 Urine Bilirubin Negative (NEGATIVE) 04/30/21 23:03 Urine Urobilinogen Normal (NORMAL) 04/30/21 23:03 Ur Leukocyte Esterase Negative (NEGATIVE) 04/30/21 23:03 Urine RBC None seen /HPF (0-3) 04/30/21 23:03 Urine WBC 3-5 /HPF (0-5) 04/30/21 23:03 Ur Squamous Epith Cells Negative /HPF (NEGATIVE) 04/30/21 23:03 Urine Bacteria Trace /HPF (NEGATIVE) 04/30/21 23:03 Ur Culture Indicated? No/not indicated 04/30/21 23:03 SARS-CoV-2 (PCR) Negative (NEGATIVE) 04/30/21 21:13 Influenza Type A (PCR) Negative (NEGATIVE) 04/30/21 21:13 Influenza Type B (PCR) Negative (NEGATIVE) 04/30/21 21:13 RSV (PCR) Negative (NEGATIVE) 04/30/21 21:13 - Plan (1) Small bowel obstruction Status: Acute Plan: NPO, NORMAL SALINE AT 125 ML/HR, LEVAQUIN 500MG IV DAILY, FORTAZ 1G IV Q8H, TORADOL 30MG IV Q6H PRN, DILAUDID 1MG IV Q4H PRN, DUONEBS QID, SOLU-MEDROL 80MG IV Q8H, PROTONIX 40MG IV BID, AND RESUME HIS PERCOCET, FLOMAX, COLACE, AND FLONASE. (2) Pneumonia Status: Acute Qualifiers: Pneumonia type: due to unspecified organism Laterality: bilateral Lung location: lower lobe of lung Qualified Code(s): J18.9 - Pneumonia, unspecified organism (3) Nausea and vomiting Status: Acute Qualifiers: Vomiting type: unspecified Qualified Code(s): R11.2 - Nausea with vomiting, unspecified (4) Abdominal pain Status: Chronic Qualifiers: Abdominal location: generalized Qualified Code(s): R10.84 - Generalized abdominal pain (5) Shortness of breath Status: Acute Plan: 02 AT 2 LPM, OBTAIN CHEST XRAY
--- NOTE | 2021-05-08 13:42 | RAD ---
HISTORYSBOSTUDYKUB x-ray one viewCOMPARISONX-ray 05/07/2021FINDINGSFew mildly prominent bowel loops are seen in the upper abdomen. In the mid right side of the abdomen there appears to be a 4.1 cm bowel loop. Findings could be due to small-bowel obstruction. Degree of small-bowel dilation is similar to prior study.IMPRESSIONLikely persistent small bowel obstruction.Electronically signed by: Teodoro Leyva (May 08, 2021 13:40:30)
[2021-05-08] MEDS: NS 1,000 ML IV 1,000 ML IV SCH ×3 (16:12→23:30)
[2021-05-08] MEDS: COLACE CAP 100 MG PO SCH (20:10)
[2021-05-09] MEDS: ATIVAN TAB 0.5 MG PO SCH ×2 (03:05→10:17)
[2021-05-09] MEDS: PERCOCET TAB 5/325 MG PO PRN ×2 (04:15→10:18)
[2021-05-09 05:18] LABS: BASOPHILS % (AUTO) 0.4 % (0.2-1.0); HEMATOCRIT 41.2 % (42.0-54.0); LYMPHOCYTES # (AUTO) 0.3 X10^3/uL (1.3-2.9); LYMPHOCYTES % (AUTO) 3.2 % (21.0-51.0); MEAN CORPUSCULAR HEMOGLOBIN 30.3 pg (27.0-34.0); MEAN CORPUSCULAR HGB CONC 33.8 g/dL (33.0-35.0); MEAN CORPUSCULAR VOLUME 89.6 fL (80.0-100.0); MEAN PLATELET VOLUME 8.9 fL (7.4-11.0); MONOCYTES # (AUTO) 0.6 x10^3/uL (0.3-0.8); MONOCYTES % (AUTO) 5.7 % (0.0-13.0); NEUTROPHILS # (AUTO) 9.2 x10^3/uL (2.2-4.8); NEUTROPHILS % (AUTO) 90.7 % (42.0-75.0); RED CELL DISTRIBUTION WIDTH 14.1 % (11.6-16.5); WHITE BLOOD COUNT 10.2 X10^3/uL (3.6-10.0)
[2021-05-09 05:37] LABS: ALANINE AMINOTRANSFERASE 29 Units/L (12-78); ALBUMIN 2.6 g/dL (3.4-5.0); ALKALINE PHOSPHATASE 29 Units/L (46-116); ASPARTATE AMINO TRANSFERASE 12 Units/L (15-37); BLOOD UREA NITROGEN 16 mg/dL (7-18); CALCIUM 7.9 mg/dL (8.5-10.1); CARBON DIOXIDE 32.7 mmol/L (21-32); CHLORIDE 104 mmol/L (98-107); COR NA(FOR HYPERGLY) 140 mmol/L (136-145); CREATININE 0.74 mg/dL (0.70-1.30); SODIUM 139 mmol/L (136-145); TOTAL PROTEIN 4.9 g/dL (6.4-8.2); eGFR NON BLACK RACES > 60 (>60)
[2021-05-09 05:52] LABS: SMUDGE CELLS FEW
[2021-05-09 05:53] LABS: PLATELET MORPHOLOGY COMMENT NORMAL (NORMAL)
[2021-05-09] MEDS: FORTAZ or TAZICEF VIAL INJ 1 G in NS 100 ML IV 100 ML IV SCH (06:00)
[2021-05-09] MEDS: SOLU-Medrol 125 MG VIAL IVP SCH (06:00)
--- NOTE | 2021-05-09 06:14 | RAD ---
HISTORYShortness of breathSTUDYChest AP [id number]/02/2022FINDINGSPati ent is rotated to the left. There is a right-sided port in place. Heart size is normal. Aorta is calcified. Radha are normal. Minimal residual right basilar subsegmental atelectasis remains. Remainder of the visualized right lung is clear as left lung with the exception of an area of abnormal parenchymal density retrocardiac area left lower lobe likely infiltrate but improved when compared to the prior examination. No pleural effusion or pneumothorax is identified. Right hemidiaphragm is chronically elevated. Linear density paralleling the left chest wall is a skin fold artifact. Bony thorax is unremarkable.IMPRESSIONImproved aeration of both lung bases with minimal residual subsegmental atelectasis right lung base and improved retrocardiac infiltrate.Chronically elevated right hemidiaphragmElectronically signed by: TYRONE ROSARIO (May 09, 2021 06:12:53)
--- NOTE | 2021-05-09 06:16 | RAD ---
HISTORYSmall-bowel [id number]/02/2022 .br.br.br upper mid abdomen. Findings are somewhat more prominent than on the prior examination. There is a small amount of gas distally in the colon. Findings could be consistent with persisting small-bowel obstruction.IMPRESSIONNo significant change from the prior examinationElectronically signed by: TYRONE ROSARIO (May 09, 2021 06:14:43)
[2021-05-09] MEDS: LOVENOX INJ 40 MG SYR SC SCH (08:06)
[2021-05-09] MEDS: FLOMAX PO SCH (08:06)
[2021-05-09] MEDS: FLONASE NASAL SPRAY ENOSTRIL SCH (08:06)
[2021-05-09] MEDS: LEVAQUIN PREMIX IV 500 MG 500 MG/100 ML BAG IV SCH (08:06)
[2021-05-09] MEDS: MILK OF MAGNESIA PO SCH (08:08)
[2021-05-09] MEDS: PROTONIX INJ 40 MG VIAL IVP SCH (08:08)
[2021-05-09] MEDS: DUONEB 0.5 MG/3 MG (3 mL) NEB SCH (08:25)
[2021-05-09 08:54] VITALS: BP 115/71
[2021-05-09] MEDS: NS 1,000 ML IV 1,000 ML IV SCH (10:18)
== END 2021-05-09 11:50 | disposition home or self-care (01) | DRG 388 ==
LOC: U 16:33 → ER 16:33 → OBSVTOIN 22:15 → U 05-01 00:50 → ICU 05-01 11:45
PROVIDERS: ADMIT Obstetrics & Gynecology Obstetrics; ATTEND Internal Medicine

== ENCOUNTER 2021-05-11 23:31 | Inpatient (IN) ==
--- NOTE | 2021-05-12 01:02 | DR.ABDMALE ---
HPI Time seen Time Seen by Provider: 05/11/21 23:51 PCP Primary Care Physician: ADELINE Collins Chief Complaint Doctors Comments: Pt has hx of football sized ventral hernia with bowel .Pt had CT of the abdomendone on 05/05/2021.Was noted to neck of her boo approx 3.8 cm x4.3with proximal colon extending into the hernia .pt was admitted to hospital .surgical consult was sought .Conservative approach was initiated .Pt discharged and return again with vomiting and nausea . Chief Complaint:: PT STATES HE HAS BEEN HAVING STOMACH PAINS AND VOMITING EVER SINCE HE LEFT THE HOSPITAL THURSDAY. Self Treatment fo Chief Complaint: [facility] COVID-19 Coronavirus risk:travel/contact w/high risk person: No Has patient experienced Coronavirus symptoms: No Source History provided by:: patient Mode of arrival Mode of Arrival: Stretcher Timing Onset of Chief Complaint: 05/09/21 Came on: Gradually Duration Duration: Since Onset Duration: Weeks Severity Severity: Moderate Context Onset: Gradually History of: Similar pain (dx) (large ventral abdominal hernia ) PMH PMH Past Medical History: Yes Past Medical History: Anxiety, COPD and GERD Past Medical History Comment: CHARCOT FOOT Past Surgical History: Yes Surgical History: Ortho Surgery and Other Family History History of Family Medical Conditions: Yes Family Medical History: Diabetes Mellitus and Cancer Social History Does patient currently use any type of tobacco product: No Have you used tobacco products in the last 12 months: No Type of Tobacco Use: None Does any household member use tobacco: No Alcohol Use: None Do you use any recreational Drugs:: No Lives With: Spouse Lives Where: Home Travel Risk Coronavirus risk:travel/contact w/high risk person: No Has patient experienced Coronavirus symptoms: No Infectious screening In the last 2 months have you had wt loss of >10#?: NO Have you had fever, night sweats or hemotysis?: No Have you traveled outside the country in the last 6 months?: No Isolation: Standard ROS Review of Systems Constitutional: No Symptoms Reported Eyes: No Symptoms Reported ENTM: No Symptoms Reported Respiratoy: No Symptoms Reported Cardiovascular: No Symptoms Reported Gastrointestinal/Abdominal: See HPI Genitourinary: No Symptoms Reported Neurological: No Symptoms Reported Musculoskeletal: No Symptoms Reported Integumentary: No Symptoms Reported PE Vital Signs Vital Signs: Temp Pulse Resp BP BP Pulse Ox 05/12/21 02:31 107/67 05/12/21 02:00 108/69 05/12/21 01:30 114/69 05/12/21 01:00 108/56 05/12/21 00:30 101/67 05/12/21 00:02 96 H 88 L 05/12/21 00:00 94 H 110/75 93 L 05/11/21 23:45 98 H 88 L 05/11/21 23:40 95 H 87 L 05/11/21 23:32 98.3 F 94 H 16 84/51 93 L 05/09/21 08:00 115/71 05/01/21 09:14 118/74 General Limitations: No Limitations General Appearance: Alert and Anxious Eyes Eye exam: Normal Appearance, PERRL and EOMI ENT ENT Exam: Normal Oropharynx Neck Neck Exam: Full ROM Chest Chest Inspection: Normal Inspection and Symmetric Chest Wall Rise Respiratory Respiratory Exam: Normal Lung Sounds Bilat Respiratory Exam: Bilateral: Clear to Auscultation Cardiovascular Cardiovascular Exam: +S1 and +S2 Abdominal Exam Abdominal Exam: Normal Bowel Sounds, Soft and Hernia (football size ) MDM Additional Information Obtained From Additional information provided by: Old Records Differential Diagnosis Other differential diagnosis: large ventral abdominal hernia .vomiting COURSE Treatment Treatment: labs KUB .IV zofran .Spoke with Dr Vergara .Pt has large ventral abdominal hernia with large bowel and small bowel and hernia orifice of around 3.8 cm Agreed to admit [facility]OR Labs Reviewed Result Diagrams: 05/12/21 01:00 05/12/21 01:00 Laboratory: WBC 16.6 X10^3/uL (3.6-10.0) H 05/12/21 01:00 RBC 5.44 X10^6/uL (4.7-6.0) 05/12/21 01:00 Hgb 16.4 g/dL (13.5-18.0) D 05/12/21 01:00 Hct 49.2 % (42.0-54.0) 05/12/21 01:00 MCV 90.5 fL (80.0-100.0) 05/12/21 01:00 MCH 30.1 pg (27.0-34.0) 05/12/21 01:00 MCHC 33.3 g/dL (33.0-35.0) 05/12/21 01:00 RDW 14.4 % (11.6-16.5) 05/12/21 01:00 Plt Count 191 X10^3/uL (150.0-450.0) 05/12/21 01:00 MPV 9.7 fL (7.4-11.0) 05/12/21 01:00 Neut % (Auto) 89.2 % (42.0-75.0) H 05/12/21 01:00 Lymph % (Auto) 2.0 % (21.0-51.0) L 05/12/21 01:00 [place] % (Auto) 8.4 % (0.0-13.0) 05/12/21 01:00 Eos % (Auto) 0.1 % (0.9-2.9) L 05/12/21 01:00 Baso % (Auto) 0.3 % (0.2-1.0) 05/12/21 01:00 Neut # (Auto) 14.8 x10^3/uL (2.2-4.8) H 05/12/21 01:00 Lymph # (Auto) 0.3 X10^3/uL (1.3-2.9) L 05/12/21 01:00 [place] # (Auto) 1.4 x10^3/uL (0.3-0.8) H 05/12/21 01:00 Eos # (Auto) 0.0 x10^3/uL (0.0-0.2) 05/12/21 01:00 Baso # (Auto) 0.1 X10^3/uL (0.0-0.1) 05/12/21 01:00 Absolute Nucleated RBC 0.0 /100WBC 05/12/21 01:00 Sodium 146 mmol/L (136-145) H 05/12/21 01:00 Corrected Sodium 147 mmol/L (136-145) H 05/12/21 01:00 Potassium 3.8 mmol/L (3.5-5.1) 05/12/21 01:00 Chloride 101 mmol/L (98-107) 05/12/21 01:00 Carbon Dioxide 39.5 mmol/L (21-32) H 05/12/21 01:00 BUN 29 mg/dL (7-18) H 05/12/21 01:00 Creatinine 1.17 mg/dL (0.70-1.30) 05/12/21 01:00 Est GFR (MDRD) Af Amer > 60 (>60) 05/12/21 01:00 Est GFR (MDRD) Non-Af > 60 (>60) 05/12/21 01:00 Glucose 127 mg/dL (65-99) H 05/12/21 01:00 Calcium 7.9 mg/dL (8.5-10.1) L 05/12/21 01:00 Corrected Calcium 8.8 mg/dL (8.5-10.1) 05/12/21 01:00 Total Bilirubin 0.70 mg/dL (0.2-1.0) 05/12/21 01:00 AST 8 Units/L (15-37) L 05/12/21 01:00 ALT 26 Units/L (12-78) 05/12/21 01:00 Alkaline Phosphatase 37 Units/L (46-116) L 05/12/21 01:00 Total Protein 5.6 g/dL (6.4-8.2) L 05/12/21 01:00 Albumin 2.9 g/dL (3.4-5.0) L 05/12/21 01:00 Globulin 2.7 g/dL (2.5-4.5) 05/12/21 01:00 Albumin/Globulin Ratio 1.1 Ratio (1.1-2.1) 05/12/21 01:00 Opioid Opioid Risk Tool Age (Sylvain box if 16-45): No History of Preadolescent Sexual Abuse: No Total: 0 Total Score Risk Category: Low Risk Copyright: Gaetano DANIELS predicting aberrant behaviors Diagnosis Discharge Problem: Ventral hernia with bowel obstruction, Small bowel obstruction Vomiting Qualifiers: Vomiting type: bilious vomiting Nausea presence: with nausea Qualified Code(s): R11.14 - Bilious vomiting Instructions Forms: [facility] Patient Portal Social Distancing
[2021-05-12 01:25] LABS: BASOPHILS # (AUTO) 0.1 X10^3/uL (0.0-0.1); BASOPHILS % (AUTO) 0.3 % (0.2-1.0); EOSINOPHILS % (AUTO) 0.1 % (0.9-2.9); HEMATOCRIT 49.2 % (42.0-54.0); HEMOGLOBIN 16.4 g/dL (13.5-18.0); LYMPHOCYTES # (AUTO) 0.3 X10^3/uL (1.3-2.9); MEAN CORPUSCULAR HEMOGLOBIN 30.1 pg (27.0-34.0); MEAN CORPUSCULAR HGB CONC 33.3 g/dL (33.0-35.0); MEAN CORPUSCULAR VOLUME 90.5 fL (80.0-100.0); MEAN PLATELET VOLUME 9.7 fL (7.4-11.0); MONOCYTES # (AUTO) 1.4 x10^3/uL (0.3-0.8); MONOCYTES % (AUTO) 8.4 % (0.0-13.0); NEUTROPHILS # (AUTO) 14.8 x10^3/uL (2.2-4.8); NEUTROPHILS % (AUTO) 89.2 % (42.0-75.0); RED BLOOD COUNT 5.44 X10^6/uL (4.7-6.0); RED CELL DISTRIBUTION WIDTH 14.4 % (11.6-16.5); WHITE BLOOD COUNT 16.6 X10^3/uL (3.6-10.0)
[2021-05-12 01:28] LABS: ALANINE AMINOTRANSFERASE 26 Units/L (12-78); ALBUMIN 2.9 g/dL (3.4-5.0); ALKALINE PHOSPHATASE 37 Units/L (46-116); ASPARTATE AMINO TRANSFERASE 8 Units/L (15-37); BLOOD UREA NITROGEN 29 mg/dL (7-18); CALCIUM 7.9 mg/dL (8.5-10.1); CARBON DIOXIDE 39.5 mmol/L (21-32); CHLORIDE 101 mmol/L (98-107); COR CA(FOR HYPOALB) 8.8 mg/dL (8.5-10.1); COR NA(FOR HYPERGLY) 147 mmol/L (136-145); CREATININE 1.17 mg/dL (0.70-1.30); SODIUM 146 mmol/L (136-145); TOTAL PROTEIN 5.6 g/dL (6.4-8.2); eGFR NON BLACK RACES > 60 (>60)
--- NOTE | 2021-05-12 02:41 | RAD ---
PROCEDURE: Abdomen X-ray 1 View .HISTORY: Abdomen pain.TECHNIQUE: AP supine abdomen view .COMPARISON: 05/09/2021.TECHNICAL QUALITY: Satisfactory .FINDINGS:Continued dilated bowel loops with air throughout the abdomen could represent ileus or small-bowel obstruction. Minimal gas and feces in the colon.No organomegaly.No abnormal calcifications.No acute bony abnormality.IMPRESSION:Continued dilated bowel loops could be related to ileus or obstruction and appears similar to previous study.Electronically signed by: Sarabjit Ta (May 12, 2021 02:39:55)
[2021-05-12] MEDS ORDERED: ZOFRAN INJ 4 MG VIAL IVP ONE (03:02)
[2021-05-12] MEDS ORDERED: ZOFRAN INJ 4 MG VIAL ONE (03:03)
[2021-05-12] MEDS ORDERED: ZOFRAN INJ 4 MG VIAL IVP PRN (04:30)
[2021-05-12 05:55] VITALS: BMI 20.2
[2021-05-12] MEDS: NS 1,000 ML IV 1,000 ML IV SCH ×3 (08:19→17:08)
[2021-05-12] MEDS ORDERED: PROVENTIL NEB TX 0.083% 2.5MG/ 3ML NEB SCH (09:00)
[2021-05-12] MEDS ORDERED: PHENERGAN INJ 25 MG IM PRN (14:34)
[2021-05-12] MEDS ORDERED: PROTONIX INJ 40 MG VIAL IVP SCH (15:00)
[2021-05-12 17:25] VITALS: BP 102/66
--- NOTE | 2021-05-12 18:10 | RAD ---
HISTORYDecreased [id number], 1 VIEWCOMPARISONMarch 2021TECHNIQUEChest radiographic imaging, AP portable projection, 1 imageFINDINGSNo cardiomegaly.Elevation of the right diaphragm with overlying airspace disease; as seen on the previous exam.Right chest port in place.No pleural effusion.No pneumothorax.No acute osseous abnormality.IMPRESSIONNo significant interval acute cardiopulmonary changes.Electronically signed by: Woody Valle (May 12, 2021 18:08:04)
--- NOTE | 2021-05-13 12:32 | DR.H&P ---
H&P - History & Physical for Day of: H&P Date: 05/12/21 - Chief Complaint Chief Complaint: HAVING STOMACH PAINS AND VOMITING EVER SINCE HE LEFT THE HOSPITAL THURSDAY - History of Present Illness History of Present Illness: PT 76 MALE, ER ADMISSION WITH CO ADBOMINAL PAIN WITH REPORTS A football sized ventral hernia with bowel. Pt had CT of the abdomen done on 05/05/2021. ABDOMEN XRAY IN ER REVEALED POSSIBLE OBSTRUCTION. PT ADMITTED FOR SURGICAL CONSULT - Past Medical History Past Medical History: Anxiety, COPD, GERD Additional Medical History: CHARCOT FOOT - Past Surgical History Surgical History: Ortho Surgery, Other - Family History Family Medical History: Diabetes Mellitus, Cancer - Social History Does patient currently use any type of tobacco product: No Have you used tobacco products in the last 12 months: No Type of Tobacco Use: None Does any household member use tobacco: No Alcohol Use: None Drug Use: None - Medications Home Medications: No Known Drug Allergies Allergy (Verified 04/30/21 16:33) CONTINUE taking the following medications ondansetron HCl 8 mg PO QID PRN 05/12/21 [History] - Review of Systems Constitutional: Weakness Eyes: No Symptoms Reported ENT: No Symptoms Reported Respiratory: No Symptoms Reported Cardiovascular: No Symptoms Reported Gastrointestinal: Nausea, Vomiting, Abdominal Pain Genitourinary: No Symptoms Reported Musculoskeletal: No Symptoms Reported Skin: No Symptoms Reported Neurological: No Symptoms Reported - Physical Exam Vital Signs: Temperature 98.7 F Pulse Rate [Bilateral Radial] 96 Pulse Rate 95 Respiratory Rate 26 Blood Pressure [Right Arm] 102/66 Blood Pressure 102/66 O2 Sat by Pulse Oximetry 94 Oriented: Normal Eyes: Normal Ear: Normal Nose: Normal Throat: Normal Respiratory: RLL Diminished, LLL Diminished Cardiovascular: Normal : Normal Auscultation: Bowel Sounds: Normal Palpation: Other (LARGE ABDOMINAL WALL HERNIA) Tenderness: Diffuse Skin: Decreased Turgur Musculoskeletal: Normal Psychiatric: Anxiety Affect: Anxious Speech Pattern: Appropriate - Assessment/Plan (1) Ventral hernia with bowel obstruction Status: Acute Plan: ADMIT, NPO. SURGICAL CONSULT, IV HYHDRATION. PAIN AND NAUSEA CONTROL, VERIFY HOME MEDICATION. BP AND BS CONTROL (2) Small bowel obstruction Status: Acute (3) Diabetes mellitus Qualifiers: Diabetes mellitus type: type 2 Diabetes mellitus longterm insulin use: with watermaster use Diabetes mellitus complication status: with circulatory complication Diabetes mellitus complication detail: with other circulatory complications Qualified Code(s): E11.59 - Type 2 diabetes mellitus with other circulatory complications; Z79.4 - nursing home (current) use of insulin Status: Acute (4) Arthritis Status: Chronic - Allergies Allergies/Adverse Reactions: Allergies Allergy/AdvReac Type Severity Reaction Status Date / Time No Known Drug Allergies Allergy Verified 04/30/21 16:33
--- NOTE | 2021-06-17 00:51 | PCM.DCPLAN ---
Discharge Plan - Discharge Plan Hospital Course: Admit date 05/12/21 Discharge date 05/12/21 DOS 05/12/21 Admit diagnosis (1) Ventral hernia with bowel obstruction (2) Small bowel obstruction (3) Diabetes mellitus (4) Arthritis Discharge diagnosis Same Hospital Course PT 76 MALE, ER ADMISSION WITH CO ADBOMINAL PAIN WITH REPORTS of A football sized ventral hernia with bowel. Pt had CT of the abdomen done on 05/05/2021. ABDOMEN XRAY IN ER REVEALED POSSIBLE OBSTRUCTION. PT ADMITTED FOR SURGICAL CONSULT and rule out SBO. Patient was transferred to [facility] for further evaluation and intervention. Patient was NPO and treated with IV fluids and IV abx while in [facility]. Discharge time spent > 30 mins Disposition: XFER SHT-TRM HOSP Condition: Stable Prescriptions: No Action albuterol sulfate 90 mcg/actuation HFA aerosol inhaler 2 puff Inhalation BID docusate sodium [Col-Rite] 100 mg Capsule 200 mg PO QHS fluticasone propionate 50 mcg/actuation spray,suspension 1 spray Intranasal BID ipratropium-albuterol [ipratropium-albuterol] 3 ML solution for nebulization 1 neb NEB TID Qty: 50 RF: 1 levofloxacin 500 mg Tablet 500 mg PO DAILY Qty: 10 RF: 0 lorazepam 0.5 mg tablet 0.5 mg PO Q8H magnesium hydroxide [Milk of Magnesia] 400 mg/5 mL Suspension 90 ml PO Q OTHER DAY methylprednisolone [Medrol ([place])] 4 mg Tablets,Dose Pack See Rx Instructions .ROUTE .COMPLEX Qty: 1 RF: 0 ondansetron HCl 8 mg tablet 8 mg PO QID PRN (Reason: Nausea And Vomiting) oxycodone-acetaminophen 7.5-325 mg tablet 7.5 - 325 mg PO Q6H pantoprazole 40 mg tablet,delayed release (DR/EC) 40 mg PO DAILY polyethylene glycol 3350 [Miralax] 17 gram Powder In Packet 17 g PO Q OTHER DAY tamsulosin [Flomax] 0.4 mg Capsule 0.4 mg PO BID - Orders to Discharge Patient Discharge Orders: Discharge by Transfer to Outside Facility (Routine); Ordered 05/12/21 Ordered By: GANESH OATES
== END 2021-05-12 17:35 | disposition short-term general hospital (02) | DRG 394 ==
LOC: ER 23:31 → MED/SURG 05-12 03:27
PROVIDERS: ADMIT Internal Medicine; ATTEND Internal Medicine
DX: E11.59 Type 2 diabetes mellitus with other circulatory complications; K43.6 Other and unspecified ventral hernia with obstruction, without gangrene; R11.14 Bilious vomiting; E87.0 Hyperosmolality and hypernatremia; K21.9 Gastro-esophageal reflux disease without esophagitis; Z79.4 Long term (current) use of insulin; J44.9 Chronic obstructive pulmonary disease, unspecified; M19.90 Unspecified osteoarthritis, unspecified site; Z20.822 Contact with and (suspected) exposure to COVID-19